=== PATIENT | female | born 1940 | race Caucasian/White ===

== ENCOUNTER → 2016-08-17 | Outpatient (CLI) | payer MEDICARE ==
[2016-08-17 18:42] LABS: MEAN CORPUSCULAR HEMOGLOBIN 33.4 pg (27.0-33.0); MEAN CORPUSCULAR VOLUME 98.2 fl (80.0-96.0); RED CELL DISTRIBUTION WIDTH 13.4 % (11.5-14.5); WHITE BLOOD COUNT 7.1 K/mm3 (4.0-10.0)
[2016-08-17 19:08] LABS: ALBUMIN 3.7 GM/DL (3.2-5.2); ALBUMIN/GLOBULIN RATIO 1.37 (1.00-1.93); BILIRUBIN,TOTAL 0.7 MG/DL (0.2-1.0); CALCIUM LEVEL 8.4 MG/DL (8.8-10.2); CREATININE FOR GFR 1.13 MG/DL (0.55-1.02); GLOMERULAR FILTRATION RATE 50.2 (>39); POTASSIUM SERUM 4.5 MEQ/L (3.5-5.1); TOTAL PROTEIN 6.4 GM/DL (6.4-8.2)
== END ==
LOC: M WUC 11:41
PROVIDERS: ATTEND Nurse Practitioner Family
DX: E78.00 Pure hypercholesterolemia, unspecified (principal); I10 Essential (primary) hypertension; E11.9 Type 2 diabetes mellitus without complications; E55.9 Vitamin D deficiency, unspecified; K21.9 Gastro-esophageal reflux disease without esophagitis

== ENCOUNTER → 2016-11-18 | Outpatient (CLI) | payer MEDICARE ==
[2016-11-18 17:03] LABS: ALBUMIN 3.5 GM/DL (3.2-5.2); ALBUMIN/GLOBULIN RATIO 1.09 (1.00-1.93); BILIRUBIN,TOTAL 0.6 MG/DL (0.2-1.0); CALCIUM LEVEL 8.6 MG/DL (8.8-10.2); CREATININE FOR GFR 1.04 MG/DL (0.55-1.02); GLOMERULAR FILTRATION RATE 55.1 (>39); POTASSIUM SERUM 4.4 MEQ/L (3.5-5.1); TOTAL PROTEIN 6.7 GM/DL (6.4-8.2)
[2016-11-18 19:08] LABS: MEAN CORPUSCULAR HEMOGLOBIN 32.4 pg (27.0-33.0); MEAN CORPUSCULAR HGB CONC 33.3 g/dl (32.0-36.5); MEAN CORPUSCULAR VOLUME 97.4 fl (80.0-96.0); RED CELL DISTRIBUTION WIDTH 13.4 % (11.5-14.5); WHITE BLOOD COUNT 6.6 K/mm3 (4.0-10.0)
== END ==
LOC: M WUC 13:36
PROVIDERS: ATTEND Nurse Practitioner Family
DX: E55.9 Vitamin D deficiency, unspecified (principal); I10 Essential (primary) hypertension

== ENCOUNTER → 2016-12-07 | Outpatient (REF) | payer MEDICARE | LOC: M LAB REF 08:59 | PROVIDERS: ATTEND Physician Assistant | DX: N39.0 Urinary tract infection, site not specified (principal) ==

== ENCOUNTER → 2017-01-30 | Outpatient (REF) | payer MEDICARE | LOC: M LAB REF 18:44 | PROVIDERS: ATTEND Surgery | DX: L72.3 Sebaceous cyst (principal) ==

== ENCOUNTER → 2017-02-27 | Outpatient (CLI) | payer MEDICARE ==
[2017-02-27 16:49] LABS: MEAN CORPUSCULAR HEMOGLOBIN 32.1 pg (27.0-33.0); MEAN CORPUSCULAR HGB CONC 33.3 g/dl (32.0-36.5); MEAN CORPUSCULAR VOLUME 96.4 fl (80.0-96.0); RED CELL DISTRIBUTION WIDTH 13.7 % (11.5-14.5); WHITE BLOOD COUNT 7.2 K/mm3 (4.0-10.0)
[2017-02-27 17:36] LABS: ALBUMIN 3.6 GM/DL (3.2-5.2); ALBUMIN/GLOBULIN RATIO 1.13 (1.00-1.93); BILIRUBIN,TOTAL 0.7 MG/DL (0.2-1.0); CALCIUM LEVEL 8.7 MG/DL (8.8-10.2); CREATININE FOR GFR 1.05 MG/DL (0.55-1.02); GLOMERULAR FILTRATION RATE 54.5 (>39); POTASSIUM SERUM 4.3 MEQ/L (3.5-5.1); TOTAL PROTEIN 6.8 GM/DL (6.4-8.2)
== END ==
LOC: M WUC 12:43
PROVIDERS: ATTEND Nurse Practitioner Family
DX: E55.9 Vitamin D deficiency, unspecified (principal); I10 Essential (primary) hypertension; E78.5 Hyperlipidemia, unspecified; E11.9 Type 2 diabetes mellitus without complications

== ENCOUNTER → 2017-06-20 | Outpatient (CLI) | payer MEDICARE ==
[2017-06-20 19:02] LABS: HEMATOCRIT 44.1 % (36.0-47.0); HEMOGLOBIN 14.5 g/dl (12.0-16.0); MEAN CORPUSCULAR HEMOGLOBIN 31.7 pg (27.0-33.0); MEAN CORPUSCULAR HGB CONC 32.9 g/dl (32.0-36.5); MEAN CORPUSCULAR VOLUME 96.5 fl (80.0-96.0); PLATELET COUNT, AUTOMATED 274 10^3/uL (150-450); RED BLOOD COUNT 4.57 10^6/uL (4.00-5.40); RED CELL DISTRIBUTION WIDTH 13.9 % (11.5-14.5); WHITE BLOOD COUNT 8.8 10^3/uL (4.0-10.0)
[2017-06-20 19:32] LABS: ALBUMIN 3.8 GM/DL (3.2-5.2); ALBUMIN/GLOBULIN RATIO 1.19 (1.00-1.93); ALKALINE PHOSPHATASE 63 U/L (45-117); ALT/SGPT 20 U/L (12-78); ANION GAP 7 MEQ/L (8-16); AST/SGOT 14 U/L (7-37); BILIRUBIN,TOTAL 0.5 MG/DL (0.2-1.0); BLOOD UREA NITROGEN 16 MG/DL (7-18); CALCIUM LEVEL 8.6 MG/DL (8.8-10.2); CARBON DIOXIDE LEVEL 28 MEQ/L (21-32); CHLORIDE LEVEL 108 MEQ/L (98-107); CHOLESTEROL LEVEL 206 MG/DL (<200); CPK CREATINE PHOSPHOKINASE 58 U/L (26-192); CREATININE FOR GFR 1.11 MG/DL (0.55-1.02); GLOMERULAR FILTRATION RATE 51.2 (>39); GLUCOSE, FASTING 119 MG/DL (83-110); HDL CHOLESTEROL 76 MG/DL (>40); LDL CHOLESTEROL 100.8 MG/DL (<100); NON-HDL-C 130 MG/DL; POTASSIUM SERUM 4.1 MEQ/L (3.5-5.1); SODIUM LEVEL 143 MEQ/L (136-145); TRIGLYCERIDES LEVEL 146 MG/DL (<150)
[2017-06-20 19:48] LABS: ESTIMATED AVERAGE GLUCOSE 111 MG/DL (60-110); HEMOGLOBIN A1c 5.5 %
[2017-06-20 19:50] LABS: CREATININE, URINE 71.2 MG/DL; MALB URINE SIEMENS < 5.0 MG/L
[2017-06-20 19:54] LABS: TOTAL 25(OH) VITAMIN D 49.1 NG/ML (30.0-100.0)
== END ==
LOC: M WUC 11:06
DX: I10 Essential (primary) hypertension (principal); E55.9 Vitamin D deficiency, unspecified; R73.01 Impaired fasting glucose
CPT/HCPCS: 82550

== ENCOUNTER → 2017-06-23 | Outpatient (CLI) | payer MEDICARE ==
[2017-06-23 16:44] LABS: ERYTHROCYTE SEDIMENTATION RATE 11 mm/hr (0-30)
== END ==
LOC: M WUC 15:18
DX: G50.1 Atypical facial pain (principal)
CPT/HCPCS: 36415

== ENCOUNTER 2017-09-04 06:32 | Day surgery (SDC) | payer MEDICARE ==
[~2017-09-04 06:32] MED LIST: SLF 3 ML SYR IV
[2017-09-04] MEDS ORDERED: SLF 3 ML SYR IV (06:45)
[2017-09-04] MEDS ORDERED: CYCLOPENTOLATE 2% OPHTH SOLN 2ML BTL OS (07:00)
[2017-09-04] MEDS: OFLOXACIN 0.3 % (OCUFLOX) OPTH SOL 5ML OS (07:00)
[2017-09-04] MEDS ORDERED: PHENYLEPHRINE HCL 10 % OPHTH. SOL 5ML OS (07:00)
[2017-09-04] MEDS ORDERED: LIDOCAINE 3.5 % 1ML OPHTH TOPICAL GEL OU (07:00)
[2017-09-04] MEDS: PROPARACAINE 0.5% OPHTH SOL 15ML OS (07:00)
[2017-09-04] MEDS: PHENYLEPHRINE 2.5% OPHTH SOL 2ML OS (07:05)
[2017-09-04 07:08] LABS: BEDSIDE GLUCOSE 107 MG/DL (83-110)
[2017-09-04] MEDS: TROPICAMIDE 1% OPHTH SOLN 2ML OS (07:10)
[2017-09-04] MEDS ORDERED: fentaNYL 100 MCG/2 ML INJECTION (J3010) As Ordered (07:34)
[2017-09-04] MEDS ORDERED: MIDAZOLAM INJ 2 MG/2 ML VIAL (J2250) As Ordered (07:34)
[2017-09-04] MEDS: POVIDONE-IODINE 5% OPHTH PREP SOL 30ML As Ordered (07:58)
[2017-09-04] MEDS: LIDOCAINE 0.75%/EPINEPHRINE 0.025% IN BSS 1ML SYR INTRACAMERAL (OR ONLY) As Ordered (08:05)
[2017-09-04] MEDS: CEFUROXIME 1MG/0.1ML INTRACAMERAL INJ As Ordered (08:05)
[2017-09-04] MEDS: BALANCED SALT IRRIGATION SOLUTION 500ML BAG (FOR OR EYE MACHINE) As Ordered (08:05)
[2017-09-04] MEDS: DUOVISC (0.50ML VISCOAT/0.55ML PROVISC) OPHTH KIT As Ordered (08:05)
== END 2017-09-04 09:10 | disposition home or self-care (01) ==
LOC: M SDC 06:32
DX: H25.12 Age-related nuclear cataract, left eye (principal); H40.9 Unspecified glaucoma; I10 Essential (primary) hypertension; E11.9 Type 2 diabetes mellitus without complications; E78.5 Hyperlipidemia, unspecified; I49.9 Cardiac arrhythmia, unspecified; G43.909 Migraine, unspecified, not intractable, without status migrainosus; R06.83 Snoring; J30.9 Allergic rhinitis, unspecified; K21.9 Gastro-esophageal reflux disease without esophagitis; Z88.2 Allergy status to sulfonamides; Z79.899 Other long term (current) drug therapy; Z87.891 Personal history of nicotine dependence; Z78.0 Asymptomatic menopausal state
CPT/HCPCS: 66984

== ENCOUNTER 2017-09-18 05:45 | Day surgery (SDC) | payer MEDICARE ==
[2017-09-18] MEDS ORDERED: SLF 3 ML SYR IV ×2 (06:00)
[2017-09-18] MEDS: PROPARACAINE 0.5% OPHTH SOL 15ML OD (06:37)
[2017-09-18] MEDS: PHENYLEPHRINE 2.5% OPHTH SOL 2ML OD (06:37)
[2017-09-18] MEDS: OFLOXACIN 0.3 % (OCUFLOX) OPTH SOL 5ML OD (06:37)
[2017-09-18] MEDS: TROPICAMIDE 1% OPHTH SOLN 2ML OD (06:37)
[2017-09-18] MEDS ORDERED: MIDAZOLAM INJ 2 MG/2 ML VIAL (J2250) As Ordered (07:04)
[2017-09-18] MEDS ORDERED: fentaNYL 100 MCG/2 ML INJECTION (J3010) As Ordered (07:13)
[2017-09-18] MEDS: BALANCED SALT IRRIGATION SOLUTION 500ML BAG (FOR OR EYE MACHINE) As Ordered (07:36)
[2017-09-18] MEDS: DUOVISC (0.50ML VISCOAT/0.55ML PROVISC) OPHTH KIT As Ordered ×2 (07:36)
[2017-09-18] MEDS: CEFUROXIME 1MG/0.1ML INTRACAMERAL INJ As Ordered (07:36)
[2017-09-18] MEDS: LIDOCAINE 0.75%/EPINEPHRINE 0.025% IN BSS 1ML SYR INTRACAMERAL (OR ONLY) As Ordered (07:36)
[2017-09-18] MEDS: POVIDONE-IODINE 5% OPHTH PREP SOL 30ML As Ordered (07:36)
== END 2017-09-18 08:44 | disposition home or self-care (01) ==
LOC: M SDC 05:45
DX: H25.11 Age-related nuclear cataract, right eye (principal); H40.10X0 Unspecified open-angle glaucoma, stage unspecified; I10 Essential (primary) hypertension; E11.9 Type 2 diabetes mellitus without complications; E78.5 Hyperlipidemia, unspecified; Z88.2 Allergy status to sulfonamides; Z79.899 Other long term (current) drug therapy
CPT/HCPCS: 66984

== ENCOUNTER → 2017-10-11 | Outpatient (CLI) | payer MEDICARE ==
[2017-10-11 17:49] LABS: ALBUMIN 3.7 GM/DL (3.2-5.2); ALBUMIN/GLOBULIN RATIO 1.16 (1.00-1.93); ALKALINE PHOSPHATASE 66 U/L (45-117); ALT/SGPT 33 U/L (12-78); ANION GAP 8 MEQ/L (8-16); AST/SGOT 23 U/L (7-37); BILIRUBIN,TOTAL 0.7 MG/DL (0.2-1.0); BLOOD UREA NITROGEN 11 MG/DL (7-18); CALCIUM LEVEL 8.4 MG/DL (8.8-10.2); CARBON DIOXIDE LEVEL 27 MEQ/L (21-32); CHLORIDE LEVEL 110 MEQ/L (98-107); CHOLESTEROL LEVEL 172 MG/DL (<200); CHOLESTEROL RISK RATIO 2.492 (<5); CPK CREATINE PHOSPHOKINASE 69 U/L (26-192); CREATININE FOR GFR 1.03 MG/DL (0.55-1.30); GLOMERULAR FILTRATION RATE 55.6 (>39); GLUCOSE, FASTING 103 MG/DL (70-100); HDL CHOLESTEROL 69 MG/DL (>40); LDL CHOLESTEROL 75.4 MG/DL (<100); NON-HDL-C 103 MG/DL; POTASSIUM SERUM 4.1 MEQ/L (3.5-5.1); SODIUM LEVEL 145 MEQ/L (136-145); TOTAL PROTEIN 6.9 GM/DL (6.4-8.2); TRIGLYCERIDES LEVEL 138 MG/DL (<150)
[2017-10-11 17:53] LABS: ESTIMATED AVERAGE GLUCOSE 120 MG/DL (60-110); HEMOGLOBIN A1c 5.8 %
[2017-10-11 18:10] LABS: HEMATOCRIT 42.3 % (36.0-47.0); HEMOGLOBIN 13.9 g/dl (12.0-15.5); MEAN CORPUSCULAR HEMOGLOBIN 31.5 pg (27.0-33.0); MEAN CORPUSCULAR HGB CONC 32.9 g/dl (32.0-36.5); MEAN CORPUSCULAR VOLUME 95.9 fl (80.0-96.0); PLATELET COUNT, AUTOMATED 213 10^3/uL (150-450); RED BLOOD COUNT 4.41 10^6/uL (4.00-5.40); WHITE BLOOD COUNT 5.7 10^3/uL (4.0-10.0)
[2017-10-11 18:22] LABS: MALB URINE SIEMENS 8.6 MG/L; MAU/CREAT RATIO 6.3 MCG/MG (0.0-30.0)
[2017-10-13 09:26] LABS: TOTAL 25(OH) VITAMIN D 59.2 NG/ML (30.0-100.0)
== END ==
LOC: M WUC 12:37
DX: I10 Essential (primary) hypertension (principal); E55.9 Vitamin D deficiency, unspecified; E11.9 Type 2 diabetes mellitus without complications; E78.00 Pure hypercholesterolemia, unspecified
CPT/HCPCS: 82550

== ENCOUNTER → 2018-01-31 | Outpatient (CLI) | payer MEDICARE ==
[2018-01-31 19:01] LABS: HEMATOCRIT 43.7 % (36.0-47.0); HEMOGLOBIN 14.4 g/dl (12.0-15.5); MEAN CORPUSCULAR VOLUME 97.1 fl (80.0-96.0); PLATELET COUNT, AUTOMATED 208 10^3/uL (150-450); RED CELL DISTRIBUTION WIDTH 13.6 % (11.5-14.5); WHITE BLOOD COUNT 8.3 10^3/uL (4.0-10.0)
[2018-01-31 19:08] LABS: ALBUMIN 3.4 GM/DL (3.2-5.2); ALBUMIN/GLOBULIN RATIO 0.97 (1.00-1.93); ALKALINE PHOSPHATASE 69 U/L (45-117); ALT/SGPT 22 U/L (12-78); ANION GAP 10 MEQ/L (8-16); AST/SGOT 14 U/L (7-37); BILIRUBIN,TOTAL 0.6 MG/DL (0.2-1.0); BLOOD UREA NITROGEN 13 MG/DL (7-18); CALCIUM LEVEL 8.5 MG/DL (8.8-10.2); CARBON DIOXIDE LEVEL 27 MEQ/L (21-32); CHLORIDE LEVEL 107 MEQ/L (98-107); CHOLESTEROL LEVEL 174 MG/DL (<200); CHOLESTEROL RISK RATIO 2.383 (<5); CPK CREATINE PHOSPHOKINASE 50 U/L (26-192); CREATININE FOR GFR 1.02 MG/DL (0.55-1.30); GLOMERULAR FILTRATION RATE 56.2 (>39); GLUCOSE, FASTING 104 MG/DL (70-100); HDL CHOLESTEROL 73 MG/DL (>40); LDL CHOLESTEROL 75.6 MG/DL (<100); NON-HDL-C 101 MG/DL; POTASSIUM SERUM 4.2 MEQ/L (3.5-5.1); SODIUM LEVEL 144 MEQ/L (136-145); TOTAL PROTEIN 6.9 GM/DL (6.4-8.2); TRIGLYCERIDES LEVEL 127 MG/DL (<150)
[2018-01-31 19:13] LABS: ESTIMATED AVERAGE GLUCOSE 126 MG/DL (60-110)
[2018-01-31 19:31] LABS: MALB URINE SIEMENS 10.1 MG/L; MAU/CREAT RATIO 4.9 MCG/MG (0.0-30.0)
== END ==
LOC: M WUC 12:04
DX: I10 Essential (primary) hypertension (principal); E11.9 Type 2 diabetes mellitus without complications; E78.00 Pure hypercholesterolemia, unspecified
CPT/HCPCS: 82550

== ENCOUNTER → 2018-05-15 | Outpatient (CLI) | payer MEDICARE ==
[2018-05-15 15:08] LABS: HEMATOCRIT 41.2 % (36.0-47.0); HEMOGLOBIN 13.4 g/dl (12.0-15.5); MEAN CORPUSCULAR HEMOGLOBIN 31.2 pg (27.0-33.0); MEAN CORPUSCULAR HGB CONC 32.5 g/dl (32.0-36.5); MEAN CORPUSCULAR VOLUME 95.8 fl (80.0-96.0); PLATELET COUNT, AUTOMATED 163 10^3/uL (150-450); RED CELL DISTRIBUTION WIDTH 13.8 % (11.5-14.5); WHITE BLOOD COUNT 8.1 10^3/uL (4.0-10.0)
[2018-05-15 15:16] LABS: ALBUMIN 3.2 GM/DL (3.2-5.2); ALBUMIN/GLOBULIN RATIO 0.97 (1.00-1.93); ALKALINE PHOSPHATASE 69 U/L (45-117); ALT/SGPT 24 U/L (12-78); ANION GAP 9 MEQ/L (8-16); AST/SGOT 19 U/L (7-37); BILIRUBIN,TOTAL 0.5 MG/DL (0.2-1.0); BLOOD UREA NITROGEN 15 MG/DL (7-18); CALCIUM LEVEL 8.4 MG/DL (8.8-10.2); CARBON DIOXIDE LEVEL 26 MEQ/L (21-32); CHLORIDE LEVEL 108 MEQ/L (98-107); CHOLESTEROL LEVEL 199 MG/DL (<200); CHOLESTEROL RISK RATIO 2.926 (<5); CPK CREATINE PHOSPHOKINASE 58 U/L (26-192); CREATININE FOR GFR 1.05 MG/DL (0.55-1.30); GLOMERULAR FILTRATION RATE 54.4 (>39); GLUCOSE, FASTING 95 MG/DL (70-100); HDL CHOLESTEROL 68 MG/DL (>40); LDL CHOLESTEROL 100 MG/DL (<100); NON-HDL-C 131 MG/DL; POTASSIUM SERUM 4.5 MEQ/L (3.5-5.1); SODIUM LEVEL 143 MEQ/L (136-145); TOTAL PROTEIN 6.5 GM/DL (6.4-8.2); TRIGLYCERIDES LEVEL 154 MG/DL (<150)
[2018-05-15 15:22] LABS: TOTAL 25(OH) VITAMIN D 43.3 NG/ML (30.0-100.0)
[2018-05-15 15:40] LABS: CREATININE, URINE 54.6 MG/DL; MALB URINE SIEMENS < 5.0 MG/L; MAU/CREAT RATIO 9.1 MCG/MG (0.0-30.0)
[2018-05-15 15:52] LABS: ESTIMATED AVERAGE GLUCOSE 123 MG/DL (60-110); HEMOGLOBIN A1c 5.9 %
== END ==
LOC: M WUC 12:49
DX: E83.51 Hypocalcemia (principal); E78.00 Pure hypercholesterolemia, unspecified; I10 Essential (primary) hypertension; E11.9 Type 2 diabetes mellitus without complications
CPT/HCPCS: 82550

== ENCOUNTER → 2018-05-18 | Outpatient (CLI) | payer MEDICARE | LOC: M WUC 18:08 | DX: R30.0 Dysuria (principal); R35.0 Frequency of micturition | CPT/HCPCS: 36415 ==

== ENCOUNTER → 2018-09-03 | Outpatient (CLI) | payer MEDICARE ==
[~2018-09-03] MED LIST changes: +BYST5TAB2 PO; +DRIS50003 PO; +JANU100T PO; +ROSU5TAB4 PO; +SERT-155 PO; -SLF 3 ML SYR IV; +VALS1TAB47 PO
[2018-09-03 18:22] LABS: HEMATOCRIT 43.6 % (36.0-47.0); HEMOGLOBIN 13.8 g/dl (12.0-15.5); MEAN CORPUSCULAR HEMOGLOBIN 31.3 pg (27.0-33.0); MEAN CORPUSCULAR HGB CONC 31.7 g/dl (32.0-36.5); MEAN CORPUSCULAR VOLUME 98.9 fl (80.0-96.0); PLATELET COUNT, AUTOMATED 252 10^3/uL (150-450); RED BLOOD COUNT 4.41 10^6/uL (4.00-5.40); WHITE BLOOD COUNT 6.6 10^3/uL (4.0-10.0)
[2018-09-03 18:28] LABS: ALBUMIN 3.8 GM/DL (3.2-5.2); BILIRUBIN,TOTAL 0.8 MG/DL (0.2-1.0); CALCIUM LEVEL 8.9 MG/DL (8.8-10.2); CHOLESTEROL RISK RATIO 2.434 (<5); CREATININE FOR GFR 1.03 MG/DL (0.55-1.30); GLOMERULAR FILTRATION RATE 55.6 (>39); POTASSIUM SERUM 4.3 MEQ/L (3.5-5.1); TOTAL PROTEIN 6.8 GM/DL (6.4-8.2)
[2018-09-03 18:41] LABS: HEMOGLOBIN A1c 5.7 %
[2018-09-03 19:28] LABS: CREATININE, URINE 82.2 MG/DL; MALB URINE SIEMENS < 5.0 MG/L
== END ==
LOC: M WUC 11:56
PROVIDERS: ATTEND Nurse Practitioner Family
DX: I10 Essential (primary) hypertension (principal); E55.9 Vitamin D deficiency, unspecified; E78.5 Hyperlipidemia, unspecified; E11.9 Type 2 diabetes mellitus without complications

== ENCOUNTER → 2019-03-09 | Outpatient (REF) | payer MEDICARE ==
[~2019-03-09] MED LIST changes: -ROSU5TAB4 PO; +ROSU5TAB5 PO; -VALS1TAB47 PO; +VALS1TAB67 PO
[2019-03-09 17:46] LABS: CREATININE, URINE 54.3 MG/DL; MALB URINE SIEMENS < 5.0 MG/L; MAU/CREAT RATIO 9.2 MCG/MG (0.0-30.0)
== END ==
LOC: M LAB REF 16:35
PROVIDERS: ATTEND Internal Medicine Cardiovascular Disease
DX: I10 Essential (primary) hypertension (principal); E78.2 Mixed hyperlipidemia; E11.9 Type 2 diabetes mellitus without complications

== ENCOUNTER → 2019-03-10 | Outpatient (CLI) | payer MEDICARE ==
[2019-03-10 17:14] LABS: ALBUMIN 3.6 GM/DL (3.2-5.2); BILIRUBIN,TOTAL 0.8 MG/DL (0.2-1.0); CALCIUM LEVEL 9.1 MG/DL (8.8-10.2); CHOLESTEROL RISK RATIO 2.439 (<5); CREATININE FOR GFR 1.16 MG/DL (0.55-1.30); FREE T4 1.04 NG/DL (0.76-1.46); GLOMERULAR FILTRATION RATE 48.4 (>39); POTASSIUM SERUM 4.6 MEQ/L (3.5-5.1); THYROID STIMULATING HORMONE 1.61 uIU/ML (0.358-3.740); TOTAL PROTEIN 6.8 GM/DL (6.4-8.2)
[2019-03-10 17:22] LABS: BASO # 0.1 10^3/uL (0.0-0.2); BASO % 1.6 % (0.0-1.0); EOS # 0.3 10^3/uL (0.0-0.5); EOS % 3.5 % (0.0-3.0); HEMATOCRIT 42.1 % (36.0-47.0); HEMOGLOBIN 14.1 g/dl (12.0-15.5); LYMPH # 2.3 10^3/uL (1.5-5.0); LYMPH % 31.5 % (24.0-44.0); MEAN CORPUSCULAR HEMOGLOBIN 32.1 pg (27.0-33.0); MEAN CORPUSCULAR HGB CONC 33.5 g/dl (32.0-36.5); MEAN CORPUSCULAR VOLUME 95.9 fl (80.0-96.0); MONO # 0.7 10^3/uL (0.0-0.8); NEUTROPHILS % 54.3 % (36.0-66.0); PLATELET COUNT, AUTOMATED 237 10^3/uL (150-450); RED BLOOD COUNT 4.39 10^6/uL (4.00-5.40); WHITE BLOOD COUNT 7.4 10^3/uL (4.0-10.0)
[2019-03-10 17:52] LABS: HEMOGLOBIN A1c 5.3 %
== END ==
LOC: M WUC 13:55
PROVIDERS: ATTEND Physician Assistant Medical
DX: E11.9 Type 2 diabetes mellitus without complications (principal); I10 Essential (primary) hypertension; E78.2 Mixed hyperlipidemia; R53.83 Other fatigue

== ENCOUNTER 2019-08-24 23:45 | Emergency (ER) | payer MEDICARE ==
[~2019-08-24] VITALS: Ht 157.5 cm; Wt 74.1 kg
[~2019-08-24 23:45] MED LIST changes: -SERT-155 PO; +SERT50TA29 PO
[2019-08-25] MEDS ORDERED: LOSA50TA88 PO (00:01)
[2019-08-25 00:21] LABS: BASO # 0.1 10^3/uL (0.0-0.2); BASO % 1.3 % (0.0-1.0); EOS # 0.3 10^3/uL (0.0-0.5); EOS % 2.9 % (0.0-3.0); HEMATOCRIT 42.1 % (36.0-47.0); LYMPH % 31.6 % (24.0-44.0); MEAN CORPUSCULAR HGB CONC 33.3 g/dl (32.0-36.5); MEAN CORPUSCULAR VOLUME 96.1 fl (80.0-96.0); MONO # 1.1 10^3/uL (0.0-0.8); MONO % 11.2 % (0.0-5.0); NEUTROPHILS # 5.1 10^3/uL (1.5-8.5); NEUTROPHILS % 52.8 % (36.0-66.0); PLATELET COUNT, AUTOMATED 299 10^3/uL (150-450); RED BLOOD COUNT 4.38 10^6/uL (4.00-5.40); WHITE BLOOD COUNT 9.6 10^3/uL (4.0-10.0)
[2019-08-25 00:49] LABS: BLOOD UREA NITROGEN 9 MG/DL (7-18); CALCIUM LEVEL 8.9 MG/DL (8.8-10.2); CARBON DIOXIDE LEVEL 27 MEQ/L (21-32); CHLORIDE LEVEL 108 MEQ/L (98-107); CK-MB VALUE MASS < 1.0 NG/ML (<3.6); CPK CREATINE PHOSPHOKINASE 69 U/L (26-192); CREATININE FOR GFR 1.12 MG/DL (0.55-1.30); GLOMERULAR FILTRATION RATE 50.4 (>39); GLUCOSE, FASTING 104 MG/DL (70-100); MB/CK RELATIVE INDEX 1.45 (< OR =4); POTASSIUM SERUM 3.7 MEQ/L (3.5-5.1); SODIUM LEVEL 143 MEQ/L (136-145); TROPONIN I < 0.02 NG/ML (< 0.10)
[2019-08-25] MEDS ORDERED: GI COCKTAIL 50ML BTL(HYOSCYAMINE/MAALOX/LIDOCAINE VISCOUS)(1:3:1) PO ONE (02:15)
[2019-08-25 02:30] VITALS: BP 153/76
--- NOTE | 2019-08-25 07:53 | REP ---
Portable chest, 12:08 a.m., single AP view with the patient upright: Comparison is the PA and lateral chest dated 09/16/2013. There is chronic mild cardiomegaly, unchanged. Lung larson are clear. The jocelyne, mediastinum, and skeletal structures are unremarkable. Impression: Chronic mild cardiomegaly. Otherwise, negative portable chest. Electronically Signed by Elio Salinas MD 08/25/2019 07:45 A
--- NOTE | 2019-08-25 20:53 | ECGEPIP ---
[facility] - ED Test Date: 2019-08-25 Pat Name: DONNIE ROLLINS Department: Room: - Gender: Female Hospital Clinic Assistant: : 1940 Requested By: MELINDA CHAPA Order Number: [id number] Reading MD: Cara Warren Measurements Intervals [place] Rate: 67 P: 60 MO: 148 QRS: 15 QRSD: 95 T: 54 QT: 388 QTc: 411 Interpretive Statements SINUS RHYTHM NONSPECIFIC ST & T-WAVE ABNORMALITY NO PRIOR Electronically Signed on 08-25-2019 20:53:11 EDT by Cara Warren
== END 2019-08-25 02:43 | disposition home or self-care (01) ==
LOC: M ED 23:45
DX: K21.9 Gastro-esophageal reflux disease without esophagitis (principal); Z86.79 Personal history of other diseases of the circulatory system; I51.7 Cardiomegaly; E11.9 Type 2 diabetes mellitus without complications; Z88.2 Allergy status to sulfonamides; Z79.899 Other long term (current) drug therapy

== ENCOUNTER → 2020-01-04 | Outpatient (CLI) | payer MEDICARE ==
[~2020-01-04] MED LIST changes: +LOSA50TA88 PO
[2020-01-04 17:02] LABS: BASO # 0.1 10^3/uL (0.0-0.2); BASO % 0.9 % (0.0-1.0); EOS # 0.2 10^3/uL (0.0-0.5); EOS % 2.4 % (0.0-3.0); HEMATOCRIT 41.3 % (36.0-47.0); HEMOGLOBIN 13.5 g/dl (12.0-15.5); LYMPH # 2.1 10^3/uL (1.5-5.0); LYMPH % 28.8 % (24.0-44.0); MEAN CORPUSCULAR HEMOGLOBIN 31.8 pg (27.0-33.0); MEAN CORPUSCULAR HGB CONC 32.7 g/dl (32.0-36.5); MEAN CORPUSCULAR VOLUME 97.4 fl (80.0-96.0); MONO # 0.7 10^3/uL (0.0-0.8); MONO % 9.1 % (0.0-5.0); NEUTROPHILS # 4.3 10^3/uL (1.5-8.5); NEUTROPHILS % 58.7 % (36.0-66.0); PLATELET COUNT, AUTOMATED 224 10^3/uL (150-450); RED BLOOD COUNT 4.24 10^6/uL (4.00-5.40); WHITE BLOOD COUNT 7.4 10^3/uL (4.0-10.0)
[2020-01-04 17:08] LABS: ALBUMIN 3.5 GM/DL (3.2-5.2); BILIRUBIN,TOTAL 0.7 MG/DL (0.2-1.0); CALCIUM LEVEL 8.9 MG/DL (8.8-10.2); CHOLESTEROL RISK RATIO 3.057 (<5); CREATININE FOR GFR 1.16 MG/DL (0.55-1.30); FREE T4 1.02 NG/DL (0.76-1.46); GLOMERULAR FILTRATION RATE 48.2 (>39); POTASSIUM SERUM 4.1 MEQ/L (3.5-5.1); THYROID STIMULATING HORMONE 2.04 uIU/ML (0.358-3.740); TOTAL PROTEIN 6.4 GM/DL (6.4-8.2)
[2020-01-04 17:20] LABS: HEMOGLOBIN A1c 5.6 %
== END ==
LOC: M WUC 14:43
PROVIDERS: ATTEND Physician Assistant Medical
DX: R53.83 Other fatigue (principal); I10 Essential (primary) hypertension; E78.2 Mixed hyperlipidemia; E11.9 Type 2 diabetes mellitus without complications

== ENCOUNTER → 2020-04-14 | Outpatient (CLI) | payer MEDICARE ==
[2020-04-14 16:38] LABS: BASO # 0.1 10^3/uL (0.0-0.2); BASO % 1.5 % (0.0-1.0); EOS # 0.2 10^3/uL (0.0-0.5); EOS % 3.4 % (0.0-3.0); HEMATOCRIT 41.6 % (36.0-47.0); HEMOGLOBIN 13.2 g/dl (12.0-15.5); LYMPH # 2.1 10^3/uL (1.5-5.0); LYMPH % 30.9 % (24.0-44.0); MEAN CORPUSCULAR HEMOGLOBIN 31.1 pg (27.0-33.0); MEAN CORPUSCULAR HGB CONC 31.7 g/dl (32.0-36.5); MEAN CORPUSCULAR VOLUME 98.1 fl (80.0-96.0); MONO # 0.7 10^3/uL (0.0-0.8); MONO % 9.9 % (0.0-5.0); NEUTROPHILS # 3.6 10^3/uL (1.5-8.5); NEUTROPHILS % 53.9 % (36.0-66.0); PLATELET COUNT, AUTOMATED 237 10^3/uL (150-450); RED BLOOD COUNT 4.24 10^6/uL (4.00-5.40); WHITE BLOOD COUNT 6.7 10^3/uL (4.0-10.0)
[2020-04-14 16:58] LABS: HEMOGLOBIN A1c 5.5 %
[2020-04-14 17:10] LABS: ALBUMIN 3.4 GM/DL (3.2-5.2); ALT/SGPT 17 U/L (12-78); BILIRUBIN,TOTAL 0.8 MG/DL (0.2-1.0); BLOOD UREA NITROGEN 14 MG/DL (7-18); CALCIUM LEVEL 8.8 MG/DL (8.8-10.2); CARBON DIOXIDE LEVEL 27 MEQ/L (21-32); CHLORIDE LEVEL 107 MEQ/L (98-107); CHOLESTEROL LEVEL 180 MG/DL (<200); CREATININE FOR GFR 1.14 MG/DL (0.55-1.30); FREE T4 1.07 NG/DL (0.76-1.46); GLOMERULAR FILTRATION RATE 49.2 (>39); GLUCOSE, FASTING 103 MG/DL (70-100); HDL CHOLESTEROL 75 MG/DL (>40); HEPATITIS B SURFACE ANTIBODY NEGATIVE (POSITIVE); LDL CHOLESTEROL 85 MG/DL (<100); NON-HDL-C 105 MG/DL; POTASSIUM SERUM 4.2 MEQ/L (3.5-5.1); SODIUM LEVEL 141 MEQ/L (136-145); TOTAL PROTEIN 6.7 GM/DL (6.4-8.2); TRIGLYCERIDES LEVEL 98 MG/DL (<150)
[2020-04-14 17:20] LABS: HEPATITIS B SURFACE ANTIGEN NEGATIVE (NEGATIVE)
[2020-04-14 17:48] LABS: HEPATITIS A ANTIBODY IGM NEGATIVE (NEGATIVE)
== END ==
LOC: M WUC 12:24
PROVIDERS: ATTEND Physician Assistant Medical
DX: R53.83 Other fatigue (principal); I10 Essential (primary) hypertension; E78.2 Mixed hyperlipidemia; E11.9 Type 2 diabetes mellitus without complications; Z11.59 Encounter for screening for other viral diseases

== ENCOUNTER 2020-06-05 16:11 | Emergency (ER) | payer MEDICARE ==
[~2020-06-05] VITALS: Ht 157.5 cm; Wt 70.9 kg
[2020-06-05] MEDS ORDERED: VITA50005 (16:25)
[2020-06-05] MEDS ORDERED: OMEP-218 (16:25)
[2020-06-05] MEDS ORDERED: FLUTISP (16:25)
[2020-06-05 17:16] LABS: BASO # 0.2 10^3/uL (0.0-0.2); BASO % 1.6 % (0.0-1.0); EOS # 0.4 10^3/uL (0.0-0.5); EOS % 3.5 % (0.0-3.0); HEMATOCRIT 42.3 % (36.0-47.0); HEMOGLOBIN 13.6 g/dl (12.0-15.5); LYMPH # 4.3 10^3/uL (1.5-5.0); LYMPH % 43.2 % (24.0-44.0); MEAN CORPUSCULAR HEMOGLOBIN 30.8 pg (27.0-33.0); MEAN CORPUSCULAR HGB CONC 32.2 g/dl (32.0-36.5); MEAN CORPUSCULAR VOLUME 95.9 fl (80.0-96.0); MONO # 0.7 10^3/uL (0.0-0.8); MONO % 6.9 % (0.0-5.0); NEUTROPHILS # 4.5 10^3/uL (1.5-8.5); NEUTROPHILS % 44.6 % (36.0-66.0); PLATELET COUNT, AUTOMATED 268 10^3/uL (150-450); RED BLOOD COUNT 4.41 10^6/uL (4.00-5.40)
[2020-06-05 17:30] LABS: CREATININE FOR GFR 1.12 MG/DL (0.55-1.30); GLOMERULAR FILTRATION RATE 50.2 (>39); POTASSIUM SERUM 4.3 MEQ/L (3.5-5.1)
[2020-06-05 17:36] LABS: INR 0.86; PROTHROMBIN TIME 11.9 SECONDS (12.5-14.3)
[2020-06-05 17:54] LABS: ERYTHROCYTE SEDIMENTATION RATE 22 mm/hr (0-30)
--- NOTE | 2020-06-05 18:24 | REPVR ---
PROCEDURE INFORMATION: Exam: US Duplex Left Lower Extremity Veins, Limited Exam date and time: 06/05/2020 6:13 PM Age: 79 years old Clinical indication: Swelling (edema) of limb; Lower extremity, left; Additional info: R/O dvt TECHNIQUE: Imaging protocol: Real-time Duplex ultrasound of the Left Lower Extremity with 2-D slaughter scale, color Doppler flow and spectral waveform analysis with image documentation. Limited exam focused on the left lower extremity veins. COMPARISON: No relevant prior studies available. FINDINGS: Left deep veins: Unremarkable. The common femoral, femoral, proximal profunda femoral and popliteal veins are patent without thrombus. Normal Doppler waveforms. Normal compressibility and/or augmentation response. Left superficial veins: Unremarkable. Saphenofemoral junction is patent without thrombus. Soft tissues: Unremarkable. IMPRESSION: No evidence of deep vein thrombosis. Electronically signed by: Art Lubin On 06/05/2020 18:24:45 PM
[2020-06-05 19:10] VITALS: BP 157/69
--- NOTE | 2020-06-05 19:40 | REP ---
INDICATION: pain to left knee COMPARISON: None. TECHNIQUE: AP, lateral, bilateral oblique and sunrise views of the left knee. 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 No obvious acute fracture or dislocation. No definite effusion. IMPRESSION: Early advanced tricompartmental arthritic changes. <Electronically signed by Saúl Quan > 06/05/201935
== END 2020-06-05 19:13 | disposition home or self-care (01) ==
LOC: M ED 16:11
DX: M79.605 Pain in left leg (principal); I10 Essential (primary) hypertension; E78.5 Hyperlipidemia, unspecified; Z88.1 Allergy status to other antibiotic agents; Z88.2 Allergy status to sulfonamides

== ENCOUNTER → 2020-07-01 | Outpatient (REF) | payer MEDICARE ==
[~2020-07-01] MED LIST changes: +AZO-95TA3 PO; +FLUTISP; +MED REC COMMENT; +NITR-67 PO; +OMEP-218 PO; +VITA50005 PO
== END ==
LOC: M LAB REF 12:38
PROVIDERS: ATTEND Nurse Practitioner Family
DX: N39.0 Urinary tract infection, site not specified (principal)

== ENCOUNTER 2020-07-02 20:57 | Inpatient (IN) | payer MEDICARE ==
[~2020-07-02] VITALS: Ht 156.2 cm; Wt 71.9 kg
[~2020-07-02 20:57] MED LIST changes: -AZO-95TA3 PO; -MED REC COMMENT; -NITR-67 PO
--- OUTSIDE RECORDS SUMMARY | 2020-07-02 21:07 | CCD | Continuity of Care Document ---
Author Author Cecilia MEI Organization Unknown Address [address] [place] [address] [place] [address] Phone [phone] Care Team Providers Care Legal Transcriber Name Role Phone [facility] AUTM [phone] Problems Description No Information Available Social History Type Date Description Comments Sex Unknown Tobacco Use Start: Unknown End: Unknown Quit 14 Y RS AGo 1996 ETOH Use Occasionally consumes alcohol Tobacco Use Start: Unknown End: Unknown Patient is a former smoker Smoking Status Reviewed: 07/01/20 Patient is a former smoker Allergies, Adverse Reactions, Alerts Active Allergies Reaction Severity Comments Date Sulfa 07/04/2009 Medications Active Medications SIG Qnty Indications Ordering Provide r Date Nitrofurantoin Monohyd Macro 100mg Capsules take one capsule twice a day by mouth for 5 days 10caps N39.0 Bruce Maguire JR., M.D. 07/01/2020 Flonase Allergy Relief 50mcg/Act Suspension 1 spray in each nostril once a day as directed 9.900ml J 01.90 Bruce Maguire JR., M.D. 05/05/2019 Sertraline HCL Unknown Januvia 100mg Tablets Unknown Bystolic Unknown Rosuvastatin Calcium Unknown Losartan Potassium 50mg Tablets 1 by mouth every day Unknown Flonase Allergy Relief 50mcg/Act Suspension 2 sprays each nares daily/prn Unknown Azelastine HCL (Nasal) 0.15% Solut ion 2 sprays each nostril daily/prn Unknown Omeprazole Unknown Immunizations CPT Code Status Date Vaccine Lot # [id number] Given 05/16/2017 Influenza Vaccin e Not Specified Administered Age 4 And Older Q2037 Given 05/13/2016 Influenza Virus Split 3 Yrs And Above For Intramuscular Use Q2037 Given 04/13/2014 Influenza Virus Split 3 Yrs And Above For Intramuscular Use [id number] Q2037 Given 04/09/2013 Influenza Virus Split 3 Yrs And Above For Intramuscular Use [id number] Q2037 Given 04/08/2012 Influenza Virus Split 3 Yrs And Above For Intramuscular Use [id number] Q2037 Given 04/05/2011 Influenza Virus Split 3 Yrs And Above For Intramuscular Use [id number] Q2037 Given 03/16/2010 Influenza Virus Split 3 Yrs And Above For Intramuscular Use Vital Signs Date Vital Result Comment 07/01/2020 12:19pm BP Systolic 122 mmHg BP Diastolic 80 mmHg Heart Rate 68 /min Respiratory Rate 16 /min O2 % BldC Oximetry 96 % Body Temperature 97.8 F Weight 164.00 lb Height 62 inches 5'2" BMI (Body Mass Index) 30.0 kg/m2 Pain Level 5 06/05/2020 3:01pm BP Systolic 114 mmHg BP Diastolic 76 mmHg Heart Rate 63 /min Respiratory Rate 14 /min O2 % BldC Oximetry 96 % Body Temperature 97.9 F Weight 164.00 lb Height 62 inches 5'2" BMI (Body Mass Index) 30.0 kg/m2 Pain Level 6 Results Test Acquired Date Facility Test Result H/L Range Note Laboratory test finding 07/01/[address] [address] [phone] Urine Culture <pending> Procedures Description No Information Available Medical Devices Description No Information Available Encounters Type Date Location Provider Dx Diagnosis Office Visit 07/01/2020 10:25a Main Office Christine Mei NP N39. 0 Urinary tract infection, site not specified J30.9 Allergic rhinitis, unspecifi ed Office Visit 06/05/2020 3:25p Main Office ROSEY Milton R22 .42 Localized swelling, mass and lump, left lower limb Assessments Date Code Description Provider 07/01/2020 N39.0 Urinary tract infection, site no t specified Christine Mei NP 07/01/2020 J30.9 Allergic rhinitis, unspecified S cora Mei NP 06/05/2020 R22.42 Localized swelling, mass and lum p, left lower limb ROSEY Milton Plan of Treatment No Information Available Functional Status Description No Information Available Mental Status Description No Information Available Referrals Description No Information Available
--- OUTSIDE RECORDS SUMMARY | 2020-07-02 21:07 | CCD | Continuity of Care Document ---
Author Author Cecilia MEI Organization Unknown Address [address] [place] [address] [place] [address] Phone [phone] Care Team Providers Care Investigation Lieutenant Name Role Phone [facility] AUTM [phone] Problems Description No Information Available Social [...] 3 Yrs And Above For Intramuscular Use [id number] Q2037 Given 04/09/2013 Influenza Virus Split 3 Yrs And Above For Intramuscular Use [id number] Q2037 Given 04/08/2012 Influenza Virus Split 3 Yrs And Above For Intramuscular Use [id number] Q2037 Given 04/05/2011 Influenza Virus Split 3 Yrs And Above For Intramuscular Use [id number] Q2037 Given 03/16/2010 Influenza Virus Split 3 [...] H/L Range Note Laboratory test finding 07/01/[address] [address] [phone] Urine Culture <pending> Procedures Description No Information Available Medical Devices Description No Information Available Encounters Type Date Location Provider Dx Diagnosis Office Visit 07/01/2020 10:25a Main Office Christine Mei NP N39. 0 Urinary tract infection, site not specified Office Visit 06/05/2020 3:25p Main Office ROSEY Milton R22 .42 Localized swelling, mass and lump, left lower limb Assessments Date Code Description Provider 07/01/2020 N39.0 Urinary tract infection, site no t specified Christine Mei NP 06/05/2020 R22.42 Localized swelling, mass and lum p, left lower limb ROSEY Milton Plan of Treatment 07/01/2020 - Christine Mei NP* N39.0 Urinary tract infection, site not specified* New Medication:* Nitrofurantoin Monohyd Macro 100 mg - take one capsule twice a day by mouth for 5 days * Comments:* abx as directedwill send urine for culturepatient has AZO at home, advised to take PRNpractice good perineal hygienemonitor for worsening sxf/u PRN or with PCPpatient v/u & agrees to plan Functional Status Description No Information Available Mental Status Description No Information Available Referrals Description No Information Available
--- OUTSIDE RECORDS SUMMARY | 2020-07-02 21:08 | CCD ---
Author Author [facility] Organization [facility] Address Unknown Phone Unavailable Care Team Providers [employer] Name Role Phone Nael, L Renata PA Unavailable Unavailable Nael, L Renata PA Unavailable Unavailable Nael, L Renata PA Unavailable Unavailable Nael, L Renata PA Unavailable Unavailable Nael, L Renata PA Unavailable Unavailable Nael, L Renata PA Unavailable Unavailable Nael, L Renata PA Unavailable Unavailable Nael, L Renata PA Unavailable Unavailable Nael, L Renata PA Unavailable Unavailable Nael, L Renata PA Unavailable Unavailable Nael, L Renata PA Unavailable Unavailable Nael, L Renata PA Unavailable Unavailable Nael, L Renata PA Unavailable Unavailable Nael, L Renata PA Unavailable Unavailable Nael, L Renata PA Unavailable Unavailable Nael, L Renata PA Unavailable Unavailable Nael, L Renata PA Unavailable Unavailable Nael, L Renata PA Unavailable Unavailable Nael, L Renata PA Unavailable Unavailable Nael, L Renata PA Unavailable Unavailable Nael, L Renata PA Unavailable Unavailable Nael, L Renata PA Unavailable Unavailable Nael, L Renata PA Unavailable Unavailable Chambers, Christine CONTROL SYSTEMS SPECIALIST Unavailable Unavailable Chambers, Christine CONTROL SYSTEMS SPECIALIST Unavailable Unavailable Chambers, Christine CONTROL SYSTEMS SPECIALIST Unavailable Unavailable Chambers, Christine CONTROL SYSTEMS SPECIALIST Unavailable Unavailable Chambers, Christine CONTROL SYSTEMS SPECIALIST Unavailable Unavailable Chambers, Christine CONTROL SYSTEMS SPECIALIST Unavailable Unavailable Chambers, Christine CONTROL SYSTEMS SPECIALIST Unavailable Unavailable Chambers, Christine CONTROL SYSTEMS SPECIALIST Unavailable Unavailable Chambers, Christine CONTROL SYSTEMS SPECIALIST Unavailable Unavailable Chambers, Christine CONTROL SYSTEMS SPECIALIST Unavailable Unavailable Chambers, Christine CONTROL SYSTEMS SPECIALIST Unavailable Unavailable Elissa GALARZA DO Unavailable [phone] Elissa GALARZA LORI DO Unavailable [phone] Elissa GALARZA LORI DO Unavailable [phone] Elissa GALARZA LORI DO Unavailable [phone] Elissa GALARZA LORI DO Unavailable [phone] Elissa GALARZA LORI DO Unavailable [phone] Elissa GALARZA LORI DO Unavailable [phone] Elissa GALARZA LORI DO Unavailable [phone] Elissa GALARZA LORI DO Unavailable [phone] Elissa GALARZA LORI DO Unavailable [phone] Elissa GALARZA LORI DO Unavailable [phone] Elissa GALARZA LORI DO Unavailable [phone] Elissa GALARZA LORI DO Unavailable [phone] NÉSTOR, A. LORI DO Unavailable [phone] Elissa GALARZA LORI DO Unavailable [phone] Elissa GALARZA LORI DO Unavailable [phone] Elissa GALARZA LORI DO Unavailable [phone] Elissa GALARZA LORI DO Unavailable [phone] Elissa GALARZA LORI DO Unavailable [phone] Elissa GALARZA LORI DO Unavailable [phone] Elissa GALARZA LORI DO Unavailable [phone] LETTIERE, A JOSEMANUEL PA Unavailable Unavailable LETTIERE, A JOSEMANUEL PA Unavailable Unavailable LETTIERE, A JOSEMANUEL PA Unavailable Unavailable LETTIERE, A JOSEMANUEL PA Unavailable Unavailable LETTIERE, A JOSEMANUEL PA Unavailable Unavailable LETTIERE, A JOSEMANUEL PA Unavailable Unavailable LETTIERE, A JOSEMANUEL PA Unavailable Unavailable LETTIERE, A JOSEMANUEL PA Unavailable Unavailable LETTIERE, A JOSEMANUEL PA Unavailable Unavailable LETTIERE, A JOSEMANUEL PA Unavailable Unavailable LETTIERE, A JOSEMANUEL PA Unavailable Unavailable LETTIERE, A JOSEMANUEL PA Unavailable Unavailable LETTIERE, A JOSEMANUEL PA Unavailable Unavailable LETTIERE, A JOSEMANUEL PA Unavailable Unavailable LETTIERE, A JOSEMANUEL PA Unavailable Unavailable LETTIERE, A JOSEMANUEL PA Unavailable Unavailable LETTIERE, A JOSEMANUEL PA Unavailable Unavailable LETTIERE, A JOSEMANUEL PA Unavailable Unavailable LETTIERE, A JOSEMANUEL PA Unavailable Unavailable LETTIERE, A JOSEMANUEL PA Unavailable Unavailable LETTIERE, A JOSEMANUEL PA Unavailable Unavailable LETTIERE, A JOSEMANUEL PA Unavailable Unavailable LETTIERE, A JOSEMANUEL PA Unavailable Unavailable LETTIERE, A JOSEMANUEL PA Unavailable Unavailable LETTIERE, A JOSEMANUEL PA Unavailable Unavailable LETTIERE, A JOSEMANUEL PA Unavailable Unavailable LETTIERE, A JOSEMANUEL PA Unavailable Unavailable LETTIERE, A JOSEMANUEL PA Unavailable Unavailable LETTIERE, A JOSEMANUEL PA Unavailable Unavailable Re-disclosure Warning The records that you are about to access may contain information from federally-assisted alcohol or drug abuse programs. If such information is present, then the following federally mandated warning applies: This information has been disclosed to you from records protected by federal confidentiality rules (42 CFR part 2). The federal rules prohibit you from making any further disclosure of this information unless further disclosure is expressly permitted by the written consent of the person to whom it pertains or as otherwise permitted by 42 CFR part 2. A general authorization for the release of medical or other information is NOT sufficient for this purpose. The Federal rules restrict any use of the information to criminally investigate or prosecute any alcohol or drug abuse patient.The records that you are about to access may contain highly sensitive health information, the redisclosure of which is protected by Article 27-F of the [facility] Public Health law. If you continue you may have access to information: Regarding HIV / AIDS; Provided by facilities licensed or operated by the [facility] Office of Mental Health; or Provided by the [facility] Office for People With Developmental Disabilities. If such information is present, then the following [facility] mandated warning applies: This information has been disclosed to you from confidential records which are protected by state law. State law prohibits you from making any further disclosure of this information without the specific written consent of the person to whom it pertains, or as otherwise permitted by law. Any unauthorized further disclosure in violation of state law may result in a fine or intermediate sentence or both. A general authorization for the release of medical or other information is NOT sufficient authorization for further disc losure. Family History Family Member Name Family Member Gender Family Member Status Date o f Status Description Data Source(s) Unknown Unknown Problem [facility] ([facility]) Unknown Unknown Problem [facility] ([facility]) Unknown Male Problem MEDENT ([facility], [facility]) Encounters Encounter Providers Location Date Indications Data Source(s ) Outpatient Attender: Christine Chambers NP Judith Calvin Danay fuad 07/01/2020 09:25:00 AM EST MEDENT ([facility], [facility]) Outpatient Attender: JOSEMANUEL CURRIE Judith Calvin Bernadette domenico 06/05/2020 02:25:00 PM EST MEDENT ([facility], [facility]) Outpatient<td ID="encounterTypeDescripti onID0">6 Month Follow-Up</td><td>Lori Galarza DO</td><td>Virgilio Newsome MD [facility]</td><td>02/11/2020</td><td>2:52PM</td><td>3:49PM</td><td><content ID="encounterDiagnosisID0-0">Dry Eye Syndrome</content>, <content ID="encounterDiagnosisID0-1">Taking Medication For Diabetes Long-term Use of Oral Hypoglycemics</content>, <content ID="encounterDiagnosisID0-2">Glaucoma Open-angle Primary Both Eyes</content>, <content ID="encounterDiagnosisID0- 3">Diabetes Mellitus Type 2 Without Complication</content>, <content ID="encounterDiagnosisID0-4">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</content></td> Attender: LORI Betancur MD PLL [facility] 02/11/2020 02:52:00 PM EDT - 02/11/2020 03:49:00 PM ED T 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Glaucoma Open-angle Primary Both EyesGlaucoma Open-angle Primary Both EyesGlaucoma Open-angle Primary Both EyesDiabetes Mellitus Type 2 Without ComplicationTaking Medication For Diabetes Long-term Use of Oral HypoglycemicsDry Eye SyndromeDiabetes Mellitus Type 2 Without ComplicationTaking Medication For Diabetes Long-term Use of Oral HypoglycemicsDry Eye SyndromeDiabetes Mellitus Type 2 Without ComplicationTaking Medication For Diabetes Long-term Use of Oral HypoglycemicsDry Eye Syndrome JESUP (Virgilio Molina MD [facility]) Posterior Capsule Opacification Eccentri c Capsule Both Eyes Glaucoma Open-angle Primary Both Eyes Glaucoma Open-angle Primary Both Eyes Glaucoma Open-angle Primary Both Eyes Diabetes Mellitus Type 2 Without Complic ation Taking Medication For Diabetes Long-term Use of Oral Hypoglycemics Dry Eye Syndrome Diabetes Mellitus Type 2 Without Complic ation Taking Medication For Diabetes Long-term Use of Oral Hypoglycemics Dry Eye Syndrome Diabetes Mellitus Type 2 Without Complic ation Taking Medication For Diabetes Long-term Use of Oral Hypoglycemics Dry Eye Syndrome Outpatient Attender: Renata CURRIE Main Office 07/28/2019 02:00:0 0 PM EST SHANON ([facility]) Outpatient<td ID="encounterTypeDescripti onID1">7 Month Follow-Up</td><td>Lori Galarza DO</td><td>Virgilio Newsome MD [facility]</td><td>07/13/2019</td><td>3:13PM</td><td>3:59PM</td><td><content ID="encounterDiagnosisID1-0">Glaucoma Open-angle Primary Both Eyes</content>, <content ID="encounterDiagnosisID1-1">Diabetes Mellitus Type 2 Without Complication</content>, <content ID="encounterDiagnosisID1-2">Dry Eye Syndrome</content>, <content ID="encounterDiagnosisID1-3">Taking Medication For Diabetes Long-term Use of Oral Hypoglycemics</content>, <content ID="encounterDiagnosisID1-4">Pseudophakia</content>, <content ID="encounterDiagnosisID1-5">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</content></td> Attender: LORI Betancur MD PLL 07/13/2019 03:13:00 PM EST - 07/13/2019 03:59:00 PM ES T 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PseudophakiaPseudophakiaGlaucoma Open-angle Primary Both EyesGlaucoma Open-angle Primary Both EyesGlaucoma Open-angle Primary Both EyesTaking Medication For Diabetes Long-term Use of Oral HypoglycemicsDry Eye SyndromeDiabetes Mellitus Type 2 Without ComplicationTaking Medication For Diabetes Long-term Use of Oral HypoglycemicsDry Eye SyndromeDiabetes Mellitus Type 2 Without ComplicationTaking Medication For Diabetes Long-term Use of Oral HypoglycemicsDry Eye SyndromeDiabetes Mellitus Type 2 Without Complication DANIEL (Virgilio Molina MD [facility]) Posterior Capsule Opacification Eccentri c Capsule Both Eyes Posterior Capsule Opacification Eccentri c Capsule Both Eyes Pseudophakia Pseudophakia Glaucoma Open-angle Primary Both Eyes Glaucoma Open-angle Primary Both Eyes Glaucoma Open-angle Primary Both Eyes Taking Medication For Diabetes Long-term Use of Oral Hypoglycemics Dry Eye Syndrome Diabetes Mellitus Type 2 Without Complic ation Taking Medication For Diabetes Long-term Use of Oral Hypoglycemics Dry Eye Syndrome Diabetes Mellitus Type 2 Without Complic ation Taking Medication For Diabetes Long-term Use of Oral Hypoglycemics Dry Eye Syndrome Diabetes Mellitus Type 2 Without Complic ation Outpatient Attender: Christine merida 05/05/2019 02:50:00 PM EST MEDENT ([facility], [facility]) Immunizations Vaccine Date Status Description Data Source(s) INFLUENZA VACCINE QUADRIVALENT 2019- (65 YR UP)/MF59 C.1/PF 04/30/2020 12:00:00 AM EST completed [facility] PNEUMOCOCCAL 13-VALENT CONJUGATE VACCINE (DIPHTHERIA C RM)/PF 09/02/2019 12:00:00 AM EDT completed [facility] Medications Medication Brand Name Start Date Product Form Dose Route Admi nistrative Instructions Pharmacy Instructions Status Indications Reaction Description Data Source(s) 100 mg 07/01/2020 12:00:00 AM EST capsule 10 TAKE ONE CAPSULE BY MOUTH TWICE A DAY WITH FOOD FOR 5 DAYS TAKE ONE CAPSULE BY MOUTH TWICE A DAY WI TH FOOD FOR 5 DAYS SOLD: 07/01/2020 [facility] NITROFURANTOIN, MACROCRYSTALS 25 MG / Ni trofurantoin, Monohydrate 75 MG Oral Capsule Nitrofurantoin Monohyd Macro 07/01/2020 12:00:00 AM EST ORAL active [facility] ([facility], [facility]) 50 mg 06/20/2020 12:00:00 AM EST tablet 90 TAKE ONE TABLET BY MOUTH EVERY DAY TAKE ONE TABLET BY MOUTH EVERY DAY SOLD: 06/23/2020 [facility] 10 mg 05/25/2020 12:00:00 AM EST tablet 90 TAKE ONE TABLET BY MOUTH EVERY DAY TAKE ONE TABLET BY MOUTH EVERY DAY SOLD: 05/27/2020 [facility] 20 mg 05/01/2020 12:00:00 AM EST capsule,delayed release (DR/EC) 90 TAKE ONE CAPSULE BY MOUTH EVERY DAY TAKE ONE CAPSULE BY MOUTH EVERY DAY SOLD: 05/08/2020 [facility] 50 mcg/actuation 04/20/2020 12:00:00 AM EST spray,suspension 16 SPRAY TWO SPRAYS IN EACHNOSTRIL EVERY DAY SPRAY TWO SPRAYS IN EACHNOSTRIL EVERY DAY SOLD: 04/26/2020 [facility] 50 mg 04/19/2020 12:00:00 AM EST tablet 45 TAKE 1/2 TABLET BY MOUTH ONCE A DAY TAKE 1/2 TABLET BY MOUTH ONCE A DAY SOLD: 04/26/2020 [facility] 100 mg 04/05/2020 12:00:00 AM EDT tablet 90 TAKE ONE TABLET BY MOUTH EVERY DAY TAKE ONE TABLET BY MOUTH EVERY DAY SOLD: 04/08/2020 [facility] 50 mg 03/21/2020 12:00:00 AM EDT tablet 90 TAKE ONE TABLET BY MOUTH EVERY DAY TAKE ONE TABLET BY MOUTH EVERY DAY SOLD: 03/27/2020 [facility] 10 mg 02/23/2020 12:00:00 AM EDT tablet 90 TAKE ONE TABLET BY MOUTH EVERY DAY TAKE ONE TABLET BY MOUTH EVERY DAY SOLD: 02/27/2020 [facility] 20 mg 02/23/2020 12:00:00 AM EDT capsule,delayed release (DR/EC) 90 TAKE ONE CAPSULE BY MOUTH EVERY DAY TAKE ONE CAPSULE BY MOUTH EVERY DAY SOLD: 02/27/2020 [facility] 50 mg 01/25/2020 12:00:00 AM EDT tablet 45 TAKE ONE-HALF TABLET BY MOUTH EVERY DAY TAKE ONE-HALF TABLET BY MOUTH EVERY DAY SOLD: 01/27/2020 [facility] 5 mg 01/06/2020 12:00:00 AM EDT tablet 90 TAKE ONE TABLET BY MOUTH EVERY DAY TAKE ONE TABLET BY MOUTH EVERY DAY SOLD: 01/12/2020 [facility] 1,250 mcg (50,000 unit) 01/06/2020 12:00:00 AM EDT capsule 13 TAKE ONE TABLET BY MOUTH ONCE A MONTH TAKE ONE TABLET BY MOUTH ONCE A MONTH SOLD: 01/12/2020 [facility] 100 mg 01/06/2020 12:00:00 AM EDT tablet 90 TAKE ONE TABLET BY MOUTH EVERY DAY TAKE ONE TABLET BY MOUTH EVERY DAY SOLD: 01/12/2020 [facility] 50 mg 12/15/2019 12:00:00 AM EDT tablet 90 TAKE ONE TABLET BY MOUTH EVERY DAY TAKE ONE TABLET BY MOUTH EVERY DAY SOLD: 12/19/2019 [facility] 10 mg 11/19/2019 12:00:00 AM EDT tablet 90 TAKE ONE TABLET BY MOUTH EVERY DAY TAKE ONE TABLET BY MOUTH EVERY DAY SOLD: 11/28/2019 [facility] 20 mg 11/19/2019 12:00:00 AM EDT capsule,delayed release (DR/EC) 90 TAKE ONE CAPSULE BY MOUTH EVERY DAY TAKE ONE CAPSULE BY MOUTH EVERY DAY SOLD: 11/28/2019 [facility] 50 mg 09/28/2019 12:00:00 AM EDT tablet 45 TAKE ONE-HALF TABLET BY MOUTH EVERY DAY TAKE ONE-HALF TABLET BY MOUTH EVERY DAY SOLD: 09/29/2019 [facility] 5 mg 09/28/2019 12:00:00 AM EDT tablet 45 TAKE ONE TABLET BY MOUTH EVERY OTHER DAY TAKE ONE TABLET BY MOUTH EVERY OTHER DAY SOLD: 09/29/2019 [facility] 500 mg 09/28/2019 12:00:00 AM EDT capsule 40 TAKE TWO CAPSULES BY MOUTH TWICE A DAY TAKE TWO CAPSULES BY MOUTH TWICE A DAY SOLD: 09/29/2019 [facility] 100 mg 09/28/2019 12:00:00 AM EDT tablet 90 TAKE ONE TABLET BY MOUTH EVERY DAY TAKE ONE TABLET BY MOUTH EVERY DAY SOLD: 09/29/2019 [facility] 50 mg 09/23/2019 12:00:00 AM EDT tablet 90 TAKE ONE TABLET BY MOUTH EVERY DAY TAKE ONE TABLET BY MOUTH EVERY DAY SOLD: 09/24/2019 [facility] 10 mg 08/28/2019 12:00:00 AM EDT tablet 90 TAKE ONE TABLET BY MOUTH EVERY DAY TAKE ONE TABLET BY MOUTH EVERY DAY SOLD: 08/29/2019 [facility] 20 mg 08/28/2019 12:00:00 AM EDT capsule,delayed release (DR/EC) 90 TAKE ONE CAPSULE BY MOUTH EVERY DAY TAKE ONE CAPSULE BY MOUTH EVERY DAY SOLD: 08/29/2019 [facility] 100 mg 07/11/2019 12:00:00 AM EST tablet 30 TAKE ONE TABLET BY MOUTH EVERY DAY TAKE ONE TABLET BY MOUTH EVERY DAY SOLD: 08/09/2019 [facility] 100 mg 07/11/2019 12:00:00 AM EST tablet 30 TAKE ONE TABLET BY MOUTH EVERY DAY TAKE ONE TABLET BY MOUTH EVERY DAY SOLD: 09/10/2019 [facility] 100 mg 07/11/2019 12:00:00 AM EST tablet 30 TAKE ONE TABLET BY MOUTH EVERY DAY TAKE ONE TABLET BY MOUTH EVERY DAY SOLD: 07/11/2019 [facility] 0.005 % 07/10/2019 12:00:00 AM EST drops 10 INSTILL ONE DROP OPHTHALMIC (EYE) AT BEDTIME IN EACH EYE INSTILL ONE DROP OPHTHALMIC (EYE) AT BED TIME IN EACH EYE SOLD: 07/11/2019 [facility] latanoprost 0.05 MG/ML Ophthalmic Soluti on Latanoprost 0.005% Ophthalmic Solution Latanoprost 0.005% Ophthalmic Solution 07/09/2019 12:00:00 AM EST 1 active latanoprost 0.05 MG/ ML Ophthalmic Solution JESUP (Virgilio Molina MD [facility]) 1,250 mcg (50,000 unit) 06/23/2019 12:00:00 AM EST capsule 3 TAKE 1 CAPSULE BY MOUTH ONCE A MONTH TAKE 1 CAPSULE BY MOUTH ONCE A MONTH SOLD: 06/26/2019 [facility] Losartan Potassium 50 MG Oral Tablet LOSARTAN POTASSIUM 01/2020 12:00:00 AM EST tablet 90 TAKE ONE TABLET BY MOUTH TREVON DAY TAKE ONE TABLET BY MOUTH EVERY DAY SOLD: 06/26/2019 [facility] 150 mg 05/14/2019 12:00:00 AM EST tablet 2 TAKE 1 TABLET BY MOUTH AT ONSET OF SYMPTOMS MAY REPEAT IN 1 WEEK TAKE 1 TABLET BY MOUTH AT ONSET OF SYMPT OMS MAY REPEAT IN 1 WEEK SOLD: 05/14/2019 [facility] 50 mcg/actuation 05/05/2019 12:00:00 AM EST spray,suspension 16 USE 1 SPRAY IN EACH NOSTRIL ONCE DAILY DIRECTED USE 1 SPRAY IN EACH NOSTRIL ONCE DAILY A S DIRECTED SOLD: 05/05/2019 [facility] Amoxicillin 875 MG / Clavulanate 125 MG Oral Tablet Am oxicillin/Clavulanate Potassium 05/05/2019 12:00:00 AM EST ORAL active MEDENT ([facility], [facility]) Flonase Allergy Relief Flonase Allergy Relief 05/05/2019 12:00:[address] active MEDENT ([facility], [facility]) 50 mcg/actuation 05/05/2019 12:00:00 AM EST spray,suspension 16 USE 1 SPRAY IN EACH NOSTRIL ONCE DAILY DIRECTED USE 1 SPRAY IN EACH NOSTRIL ONCE DAILY A S DIRECTED SOLD: 11/09/2019 [facility] 875-125 mg 05/05/2019 12:00:00 AM EST tablet 20 TAKE ONE TABLET BY MOUTH TWICE A DAY FOR 10 DAYS TAKE ONE TABLET BY MOUTH TWICE A DAY FOR 10 DAYS SOLD: 05/05/2019 [facility] 5 mg 07/04/2018 12:00:00 AM EST tablet 135 TAKE 1 & 1/2 BY MOUTH ONCE DAILY TAKE 1 & 1/2 BY MOUTH ONCE DAILY SOLD: 06/07/2019 [facility] latanoprost 0.05 MG/ML Ophthalmic Soluti on Latanoprost 0.005% Ophthalmic Solution Latanoprost 0.005% Ophthalmic Solution 10/22/2017 12:00:00 AM EDT 1 aborted latanoprost 0.05 MG/ ML Ophthalmic Solution JESUP (Virgilio Molina MD [facility]) Insurance Providers Payer name Policy type / Coverage type Policy ID Covered green party ID Covered green party's relationship to nava Policy Nava Plan Information MEDICARE COMPLETE [id number] SP [id number] MEDICARE COMPLETE-[facility] O [id number] S [id number] [facility]-Medicare Solutions Commercial [id number] Self [id number] [employer] Medigap Part B [id number] Self [id number] [facility] Medicare Solutions Commercial [id number] Self [id number] [facility]-Medicare Solutions Commercial [id number] Self [id number] [facility]/Medicare Solu Commercial [id number] Self [id number] [facility]-Medicare Solutions Commercial [id number] Self [id number] [facility]-Medicare Solutions Commercial [id number] Self [id number] [facility] MEDICARE O/P [id number] 18 [id number] MEDICARE COMPLETE [id number] SP [id number] [employer] Medigap Part B [id number] Self [id number] [facility] Medicare Commercial [id number] Self [id number] [facility]-Medicare Solutions Commercial [id number] Self [id number] [facility] [id number] Self [id number] [employer] Medigap Part B Self [facility] Medicare Solutions Commercial Self MEDICARE COMPLETE [id number] SP [id number] Problems, Conditions, and Diagnoses Code Display Name Description Problem Type Effective Dates Data Source(s) [id number] Posterior Capsule Opacification Eccentri c Capsule Both Eyes 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 Problem 02/14 12:00:00 AM EDT DANIEL (Virgilio Molina MD [facility]) [id number] Posterior Capsule Opacification Eccentri c Capsule Both Eyes 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 Problem 02/14 12:00:00 AM EDT DANIEL (Virgilio Molina MD [facility]) Surgeries/Procedures Procedure Description Date Indications Data Source(s) Extracapsular extraction of lens (procedure) History o f extracapsular cataract extraction PCIOL OS 09/04/[address] Galarza ~PCIOL OD with iStent 09/18/[address] Galarza 03/02/2020 12:00:00 AM EDT DANIEL (Francisco Molina MD [facility]) Extracapsular extraction of lens (procedure) History o f extracapsular cataract extraction PCIOL OS 09/04/[address] Galarza ~PCIOL OD 09/18/[address] Galarza 03/02/2020 12:00:00 AM EDT DANIEL (Francisco Molina MD [facility]) Scodi, optic nerve with interpretation a nd report (WAIVER OF LIABILITY ON FILE (ABN)) Scodi, optic nerve with interpretation a nd report (WAIVER OF LIABILITY ON FILE (ABN)) 02/11/2020 12:00:00 AM EDT DANIEL (Francisco Molina MD [facility]) Comprehensive eye exam established patient (Signi/Sep Eval. & Man.) Comprehensive eye exam established patient (Signi/Sep Eval. & Man.) 02/11/2020 12:00:00 AM EDT DANIEL (Virgilio Molina MD [facility]) ECG ROUTINE ECG W/LEAST 12 LDS W/I&R 07/28/2019 12:00: 00 AM EST [facility] ([facility]) Intermediate Eye Exam Established Patient Intermediate Eye Exam Established Patient 07/13/2019 12:00:00 AM EST DANIEL (Francisco Molina MD [facility]) Results ID Date Data Source [id number] 07/01/2020 12:38:00 PM EST [facility] ([facility]) Name Value Range Interpretation Code Description Data Becca rce(s) Supporting Document(s) Bacteria identified in Urine by Culture Laboratory test result [facility] ([facility]) FULL REPORT IN LAB NOTES ([facility] and [facility] ). SPECIMEN APPEARS CONTAMINATED Procedure Social History Code Duration Value Status Description Data Source(s ) Smoking 07/01/2020 12:00:00 AM EST Patient is a former smoker completed Patient is a former smoker [facility] Smoking 03/02/2020 01:49:39 PM EDT Ex-smoker (finding) complet ed Ex-smoker (finding) DANIEL (Virgilio Molina MD [facility]) Smoking 03/02/2020 01:40:47 PM EDT Ex-smoker (finding) complet ed Ex-smoker (finding) DANIEL (Virgilio Molina MD [facility]) Smoking 03/02/2020 01:04:49 PM EDT Ex-smoker (finding) complet ed Ex-smoker (finding) JESUP (Virgilio Molina MD [facility]) Vital Signs ID Date Data Source UNK Name Value Range Interpretation Code Description Data Source(s) Body mass index (BMI) [Ratio] 30.0 kg/m2 30.0 k g/m2 [facility] Body height 62 [in_i] 62 [in_i] [facility]) 5'2" Body weight 164.00 [lb_av] 164.00 [lb_av] MEDEN T ([facility]) Body temperature 97.8 [degF] 97.8 [degF] [facility] Oxygen saturation in Arterial blood by Pulse oximetry 96 % 96 % [facility] ([facility], [facility]) Respiratory rate 16 /min 16 /min MEDENT ( [facility], [facility]) Heart rate 68 /min 68 /min MEDENT ([facility], [facility]) Diastolic blood pressure 80 mm[Hg] 80 mm[Hg] MEDENT ([facility], [facility]) Systolic blood pressure 122 mm[Hg] 122 mm[Hg] [facility], [facility]) Body mass index (BMI) [Ratio] 30.0 kg/m2 30.0 k g/m2 MEDENT ([facility], [facility]) Body height 62 [in_i] 62 [in_i] MEDENT ([facility] [place], [facility]) 5'2" Body weight 164.00 [lb_av] 164.00 [lb_av] MEDEN T ([facility], [facility]) Body temperature 97.9 [degF] 97.9 [degF] [facility], [facility]) Oxygen saturation in Arterial blood by Pulse oximetry 96 % 96 % [facility] ([facility], [facility]) Respiratory rate 14 /min 14 /min [facility] ( [facility], [facility]) Heart rate 63 /min 63 /min [facility] ([facility], [facility]) Diastolic blood pressure 76 mm[Hg] 76 mm[Hg] [facility] ([facility], [facility]) Systolic blood pressure 114 mm[Hg] 114 mm[Hg] [facility] ([facility], [facility]) Diastolic blood pressure--sitting 82 mm[Hg] 82 mm[Hg] MEDENT ([facility]) Systolic blood pressure--sitting 130 mm[Hg] 130 mm[Hg] MEDENT ([facility]) Heart rate 67 /min 67 /min MED[facility] ([facility]) Body mass index (BMI) [Ratio] 29.6 kg/m2 29.6 k g/m2 MEDENT ([facility]) Body height 62 [in_i] 62 [in_i] MEDENT ([facility]) 5'2" Body weight 162.00 [lb_av] 162.00 [lb_av] MEDEN T ([facility]) Body mass index (BMI) [Ratio] 30.0 kg/m2 30.0 k g/m2 MEDENT ([facility], [facility]) Body height 62 [in_i] 62 [in_i] MEDENT ([facility], [facility]) 5'2" Body weight 164.00 [lb_av] 164.00 [lb_av] MEDEN T ([facility], [facility]) Body temperature 98.8 [degF] 98.8 [degF] [facility] ([facility], [facility]) Oxygen saturation in Arterial blood by Pulse oximetry 97 % 97 % [facility] ([facility], [facility]) Respiratory rate 12 /min 12 /min [facility] ( [facility], [facility]) Heart rate 89 /min 89 /min [facility] ([facility], [facility]) Diastolic blood pressure 79 mm[Hg] 79 mm[Hg] [facility] ([facility]) Systolic blood pressure 161 mm[Hg] 161 mm[Hg] M [facility] ([facility], [facility]) Patient Treatment Plan of Care Planned Activity Planned Date Details Description Data Source (s) latanoprost 0.05 MG/ML Ophthalmic Solution 07/09/2019 12:00:00 AM E [facility] (Virgilio Molina MD [facility]) latanoprost 0.05 MG/ML Ophthalmic Solution 10/22/2017 12:00:00 AM E [facility] (Virgilio Molina MD [facility])
[2020-07-02] MEDS ORDERED: AZO-95TA3 PO (21:09)
[2020-07-02] MEDS ORDERED: NITR-67 PO (21:09)
[2020-07-02] MEDS ORDERED: ACETAMINOPHEN TAB 650MG DOSE (2X325MG) PO ONE (21:45)
[2020-07-02] MEDS: NS 1,000 ML IV SCH (22:08)
--- NOTE | 2020-07-02 22:15 | REPVR ---
PROCEDURE INFORMATION: Exam: CT Head Without Contrast Exam date and time: 07/02/2020 9:41 PM Age: 79 years old Clinical indication: Syncope and collapse TECHNIQUE: Imaging protocol: Computed tomography of the head without contrast. Radiation optimization: All CT scans at this facility use at least one of these dose optimization techniques: automated exposure control; mA and/or kV adjustment per patient size (includes targeted exams where dose is matched to clinical indication); or iterative reconstruction. COMPARISON: MRI-Brain without Contrast 04/18/2015 6:35 PM FINDINGS: Brain: Normal. No hemorrhage. Unremarkable white matter. No mass effect. Cerebral ventricles: No ventriculomegaly. Bones/joints: Unremarkable. No acute fracture. Paranasal sinuses: Visualized sinuses are unremarkable. No fluid levels. Mastoid air cells: Visualized mastoid air cells are well aerated. Soft tissues: Unremarkable. IMPRESSION: No acute intracranial abnormality. Electronically signed by: John Pearson On 07/02/2020 22:15:40 PM
--- NOTE | 2020-07-02 22:16 | REPVR ---
PROCEDURE INFORMATION: Exam: XR Chest, 1 View Exam date and time: 07/02/2020 10:12 PM Age: 79 years old Clinical indication: Other: Syncope; Additional info: Syncope/near-syncope TECHNIQUE: Imaging protocol: XR of the chest Views: 1 view. COMPARISON: OK PORTABLE CHEST X-RAY 08/25/2019 12:06 AM FINDINGS: Lungs: Minimal atelectasis at the left lung base. Pleural space: Unremarkable. No pleural effusion. No pneumothorax. Heart/Mediastinum: Unremarkable. No cardiomegaly. Bones/joints: Unremarkable. IMPRESSION: Minimal atelectasis at the left lung base. Electronically signed by: John Pearson On 07/02/2020 22:16:47 PM
[2020-07-02 22:28] LABS: BASO % 0.1 % (0.0-1.0); EOS # 0.4 10^3/uL (0.0-0.5); EOS % 2.6 % (0.0-3.0); HEMATOCRIT 43.1 % (36.0-47.0); HEMOGLOBIN 13.7 g/dl (12.0-15.5); LYMPH # 0.7 10^3/uL (1.5-5.0); LYMPH % 4.1 % (24.0-44.0); MEAN CORPUSCULAR HGB CONC 31.8 g/dl (32.0-36.5); MEAN CORPUSCULAR VOLUME 94.3 fl (80.0-96.0); MONO # 0.3 10^3/uL (0.0-0.8); MONO % 1.6 % (0.0-5.0); NEUTROPHILS # 15.3 10^3/uL (1.5-8.5); NEUTROPHILS % 90.9 % (36.0-66.0); PLATELET COUNT, AUTOMATED 217 10^3/uL (150-450); RED BLOOD COUNT 4.57 10^6/uL (4.00-5.40); WHITE BLOOD COUNT 16.9 10^3/uL (4.0-10.0)
[2020-07-02 22:34] LABS: BLOOD UREA NITROGEN 15 MG/DL (7-18); CALCIUM LEVEL 8.5 MG/DL (8.8-10.2); CARBON DIOXIDE LEVEL 23 MEQ/L (21-32); CHLORIDE LEVEL 103 MEQ/L (98-107); CK-MB VALUE MASS < 1.0 NG/ML (<3.6); CPK CREATINE PHOSPHOKINASE 68 U/L (26-192); CREATININE FOR GFR 1.22 MG/DL (0.55-1.30); GLOMERULAR FILTRATION RATE 45.5 (>39); GLUCOSE, FASTING 132 MG/DL (70-100); MAGNESIUM LEVEL 1.7 MG/DL (1.8-2.4); MB/CK RELATIVE INDEX 1.47 (< OR =4); SODIUM LEVEL 137 MEQ/L (136-145); TROPONIN I < 0.02 NG/ML (< 0.10)
[2020-07-02 22:35] LABS: ETHYL ALCOHOL (ETHANOL) < 0.003 % (0.000-0.010); PROTHROMBIN TIME 13.4 SECONDS (12.5-14.3)
--- OUTSIDE RECORDS SUMMARY | 2020-07-02 22:57 | CCD ---
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 Name Role Phone Nael, L Renata PA [...] L Renata PA Unavailable Unavailable Chambers, Christine AIRCRAFT INSTRUMENT REPAIRER Unavailable Unavailable Chambers, Christine AIRCRAFT INSTRUMENT REPAIRER Unavailable Unavailable Chambers, Christine AIRCRAFT INSTRUMENT REPAIRER Unavailable Unavailable Chambers, Christine AIRCRAFT INSTRUMENT REPAIRER Unavailable Unavailable Chambers, Christine AIRCRAFT INSTRUMENT REPAIRER Unavailable Unavailable Chambers, Christine AIRCRAFT INSTRUMENT REPAIRER Unavailable Unavailable Chambers, Christine AIRCRAFT INSTRUMENT REPAIRER Unavailable Unavailable Chambers, Christine AIRCRAFT INSTRUMENT REPAIRER Unavailable Unavailable Chambers, Christine AIRCRAFT INSTRUMENT REPAIRER Unavailable Unavailable Chambers, Christine AIRCRAFT INSTRUMENT REPAIRER Unavailable Unavailable Chambers, Christine AIRCRAFT INSTRUMENT REPAIRER Unavailable Unavailable Elissa GALARZA DO Unavailable [phone] Elissa GALARZA LORI DO Unavailable [phone] Elissa GALARZA LORI DO Unavailable [phone] Elissa GALARZA LORI DO Unavailable [phone] Elissa GALRAZA LORI DO Unavailable [phone] Elissa GALARZA [...] LORI DO Unavailable [phone] Elissa GALARZA LROI DO Unavailable [phone] Elissa GALARZA LORI [...] is protected by Article 27-F of the [facility] Public Health law. If you continue you may have access to information: Regarding HIV / AIDS; Provided by facilities licensed or operated by the [facility] Office of Mental Health; or Provided by the [facility] Office for People With Developmental Disabilities. If such information is present, then the following [facility] mandated warning applies: This information has [...] law may result in a fine or detention sentence or both. A general authorization for [...] Male Problem MEDENT ([facility], [facility]) Encounters Encounter Providers Location Date Indications Data Source(s ) Outpatient Attender: Christine Chambers NP Judith Calvin Danay fuad 07/01/2020 09:25:00 AM EST MEDENT ([facility], [facility]) Outpatient Attender: JOSEMANUEL CURRIE Judith Calvin Bernadette domenico 06/05/2020 02:25:00 PM EST MEDENT ([facility], [facility]) Outpatient<td ID="encounterTypeDescripti onID0">6 Month Follow-Up</td><td>Lori Galarza DO</td><td>Virgilio Newsome MD [facility]</td><td>02/11/2020</td><td>2:52PM</td><td>3:49PM</td><td><content ID="encounterDiagnosisID0-0">Dry Eye Syndrome</content>, <content ID="encounterDiagnosisID0-1">Taking Medication For [...] Long-term Use of Oral HypoglycemicsDry Eye Syndrome [facility] (Virgilio Molina MD [facility]) Posterior Capsule Opacification Eccentri c Capsule Both [...] 0 PM EST [facility] ([facility]) Outpatient<td ID="encounterTypeDescripti onID1">7 Month Follow-Up</td><td>Lori Galarza DO</td><td>Virgilio Newsome MD [facility]</td><td>07/13/2019</td><td>3:13PM</td><td>3:59PM</td><td><content ID="encounterDiagnosisID1-0">Glaucoma Open-angle Primary Both Eyes</content>, <content ID="encounterDiagnosisID1-1">Diabetes [...] 2 Without Complication [facility] (Virgilio Molina MD [facility]) Posterior Capsule Opacification Eccentri c Capsule Both [...] Christine merida 05/05/2019 02:50:00 PM EST MEDENT ([facility], [facility]) Immunizations Vaccine Date Status Description Data Source(s) [...] ORAL active MEDENT ([facility], [facility]) 50 mg 06/20/2020 12:00:00 AM EST tablet [...] active latanoprost 0.05 MG/ ML Ophthalmic Solution [facility] (Virgilio Molina MD [facility]) 1,250 mcg (50,000 unit) 06/23/2019 12:00:00 AM [...] 05/05/2019 12:00:00 AM EST ORAL active MEDENT ([facility], [facility]) Flonase Allergy Relief Flonase Allergy Relief 05/05/2019 12:00:[address] active MEDENT ([facility], [facility]) 50 mcg/actuation 05/05/2019 12:00:00 AM EST spray,suspension 16 USE 1 SPRAY IN EACH NOSTRIL ONCE DAILY DIRECTED USE 1 SPRAY IN EACH NOSTRIL ONCE DAILY A S DIRECTED SOLD: 11/09/2019 [facility] 875-125 mg 05/05/2019 12:00:00 AM EST tablet 20 TAKE ONE TABLET BY MOUTH TWICE A DAY FOR 10 DAYS TAKE ONE TABLET BY MOUTH TWICE A DAY FOR 10 DAYS SOLD: 05/05/2019 [facility] 5 mg 07/04/2018 12:00:00 AM EST tablet 135 TAKE 1 & 1/2 BY MOUTH ONCE DAILY TAKE 1 & 1/2 BY MOUTH ONCE DAILY SOLD: 06/07/2019 [facility] latanoprost 0.05 MG/ML Ophthalmic Soluti on Latanoprost 0.005% Ophthalmic Solution Latanoprost 0.005% Ophthalmic Solution 10/22/2017 12:00:00 AM EDT 1 aborted latanoprost 0.05 MG/ ML Ophthalmic Solution [facility] (Virgilio Molina MD [facility]) Insurance Providers Payer name Policy type / Coverage type Policy ID Covered republican ID Covered republican's relationship to nava Policy Nava Plan Information MEDICARE COMPLETE [id number] SP [id number] MEDICARE COMPLETE-[facility] O [id number] S [id number] [facility]-Medicare Solutions Commercial [id number] Self [id number] [employer] Medigap Part B [id number] Self [id number] [facility] Medicare Solutions Commercial [id number] Self [id number] [facility]-[employer]are [employer] Commercial [id number] Self [id number] [facility]/Medicare Solu Commercial [id number] Self [id number] [facility] Commercial [id number] Self [id number] [facility] Commercial [id number] Self [id number] [facility] MEDICARE O/P [id number] 18 [id number] MEDICARE COMPLETE [id number] SP [id number] [employer] Medigap Part B [id number] Self [id number] [facility] Medicare Commercial [id number] Self [id number] [facility]-Medicare Solutions Commercial [id number] Self [id number] [facility]/Medicare Solu Commercial [id number] Self [id number] [employer] Medigap Part B Self [facility] Medicare Solutions Commercial Self MEDICARE COMPLETE [id number] SP [id number] Problems, Conditions, and Diagnoses Code Display Name Description Problem Type Effective Dates Data Source(s) 33546150 Posterior Capsule Opacification Eccentri c Capsule Both Eyes 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 Problem 02/14 12:00:00 AM EDT [facility] (Virgilio Molina MD [facility]) [id number] Posterior Capsule Opacification Eccentri c Capsule Both Eyes 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 Problem 02/14 12:00:00 AM EDT [facility] (Virgilio Molina MD [facility]) Surgeries/Procedures Procedure Description Date Indications Data Source(s) Extracapsular extraction of lens (procedure) History o f extracapsular cataract extraction PCIOL OS 09/04/[address] Galarza ~PCIOL OD with iStent 09/18/[address] Galarza 03/02/2020 12:00:00 AM EDT [facility] (Francisco Molina MD [facility]) Extracapsular extraction of lens (procedure) History o f extracapsular cataract extraction PCIOL OS 09/04/[address] Galarza ~PCIOL OD 09/18/[address] Galarza 03/02/2020 12:00:00 AM EDT [facility] (Francisco Molina MD [facility]) Scodi, optic nerve with interpretation a nd report (WAIVER OF LIABILITY ON FILE (ABN)) Scodi, optic nerve with interpretation a nd report (WAIVER OF LIABILITY ON FILE (ABN)) 02/11/2020 12:00:00 AM EDT [facility] (Francisco Molina MD [facility]) Comprehensive eye exam established patient (Signi/Sep Eval. & Man.) Comprehensive eye exam established patient (Signi/Sep Eval. & Man.) 02/11/2020 12:00:00 AM EDT [facility] (Virgilio Molina MD [facility]) ECG ROUTINE ECG W/LEAST 12 LDS W/I&R 07/28/2019 12:00: 00 AM EST MED[facility] ([facility]) Intermediate Eye Exam Established Patient Intermediate Eye Exam Established Patient 07/13/2019 12:00:00 AM EST [facility] (Francisco Molina MD [facility]) Results ID Date Data Source [id number] 07/01/2020 12:38:00 PM EST MEDENT ([facility]) Name Value Range Interpretation Code Description Data Becca rce(s) Supporting Document(s) Bacteria identified in Urine by Culture Laboratory test result [facility] ([facility]) FULL REPORT IN LAB NOTES ([facility] and [facility] ). SPECIMEN APPEARS CONTAMINATED Procedure Social History Code Duration Value Status Description Data Source(s ) Smoking 07/01/2020 12:00:00 AM EST Patient is a former smoker completed Patient is a former smoker [facility] ([facility]) Smoking 03/02/2020 01:49:39 PM EDT Ex-smoker (finding) complet ed Ex-smoker (finding) [facility] (Virgilio Molina MD [facility]) Smoking 03/02/2020 01:40:47 PM EDT Ex-smoker (finding) complet ed Ex-smoker (finding) [facility] (Virgilio Molina MD [facility]) Smoking 03/02/2020 01:04:49 PM EDT Ex-smoker (finding) complet ed Ex-smoker (finding) [facility] (Virgilio Molina MD [facility]) Vital Signs ID Date Data Source UNK Name Value Range Interpretation Code Description Data Source(s) Body mass index (BMI) [Ratio] 30.0 kg/m2 30.0 k g/m2 [facility] Body height 62 [in_i] 62 [in_i] [facility] 5'2" Body weight 164.00 [lb_av] 164.00 [lb_av] MEDEN T ([facility]) Body temperature 97.8 [degF] 97.8 [degF] [facility] Oxygen saturation in Arterial blood by Pulse oximetry 96 % 96 % [facility] ([facility], [facility]) Respiratory rate 16 /min 16 /min MEDENT ( [facility], [facility]) Heart rate 68 /min 68 /min MED[facility] ([facility], [facility]) Diastolic blood pressure 80 mm[Hg] 80 mm[Hg] [facility] ([facility], [facility]) Systolic blood pressure 122 mm[Hg] 122 mm[Hg] [facility], [facility]) Body mass index (BMI) [Ratio] 30.0 kg/m2 30.0 k g/m2 [facility] ([facility], [facility]) Body height 62 [in_i] 62 [in_i] MEDENT ([facility], [facility]) 5'2" Body weight 164.00 [lb_av] 164.00 [lb_av] MEDEN T ([facility], [facility]) Body temperature 97.9 [degF] 97.9 [degF] [facility] ([facility], [facility]) Oxygen saturation in Arterial blood by Pulse oximetry 96 % 96 % [facility] ([facility], [facility]) Respiratory rate 14 /min 14 /min [facility] ( [facility], [facility]) Heart rate 63 /min 63 /min [facility] ([facility], [facility]) Diastolic blood pressure 76 mm[Hg] 76 mm[Hg] [facility] ([facility], [facility]) Systolic blood pressure 114 mm[Hg] 114 mm[Hg] [facility], [facility]) Diastolic blood pressure--sitting 82 mm[Hg] 82 mm[Hg] [facility] ([facility]) Systolic blood pressure--sitting 130 mm[Hg] 130 mm[Hg] [facility] ([facility]) Heart rate 67 /min 67 /min [facility] ([facility]) Body mass index (BMI) [Ratio] 29.6 kg/m2 29.6 k g/m2 [facility] ([facility]) Body height 62 [in_i] 62 [in_i] [facility] ([facility]) 5'2" Body weight 162.00 [lb_av] 162.00 [lb_av] MEDEN T ([facility]) Body mass index (BMI) [Ratio] 30.0 kg/m2 30.0 k g/m2 MEDENT ([facility], [facility]) Body height 62 [in_i] 62 [in_i] MEDENT ([facility], [facility]) 5'2" Body weight 164.00 [lb_av] 164.00 [lb_av] MEDEN T ([facility], [facility]) Body temperature 98.8 [degF] 98.8 [degF] [facility] ([facility], [facility]) Oxygen saturation in Arterial blood by Pulse oximetry 97 % 97 % [facility] ([facility], [facility]) Respiratory rate 12 /min 12 /min [facility] ( [facility], [facility]) Heart rate 89 /min 89 /min [facility] ([facility], [facility]) Diastolic blood pressure 79 mm[Hg] 79 mm[Hg] [facility] ([facility]) Systolic blood pressure 161 mm[Hg] 161 mm[Hg] M [facility] ([facility], [facility]) Patient Treatment Plan of Care Planned Activity Planned Date Details Description Data Source (s) latanoprost 0.05 MG/ML Ophthalmic Solution 07/09/2019 12:00:00 AM E [facility] (Virgilio Molina MD [facility]) latanoprost 0.05 MG/ML Ophthalmic Solution 10/22/2017 12:00:00 AM E [facility] (Virgilio Molina MD [facility])
[2020-07-02 23:55] LABS: RSV AMPLIFICATION NEGATIVE (NEGATIVE)
[2020-07-03 00:30] LABS: AMPHETAMINES LEVEL URINE NEGATIVE (NEGATIVE); BARBITURATES URINE NEGATIVE (NEGATIVE); BENZODIAZEPINES URINE NEGATIVE (NEGATIVE); CANNABINOIDS URINE NEGATIVE (NEGATIVE); COCAINE METABOLITE URINE NEGATIVE (NEGATIVE); METHADONE URINE NEGATIVE (NEGATIVE); OPIATES URINE NEGATIVE (NEGATIVE); PHENCYCLIDINE URINE NEGATIVE (NEGATIVE)
[2020-07-03] MEDS ORDERED: NS 1,000 ML IV ONE (01:15)
[2020-07-03] MEDS ORDERED: cefTRIAXone SOD 1 GM in D5W MINI-BAG PLUS 50 ML IV ONE (01:15)
--- NOTE | 2020-07-03 02:44 | HPEPDOC ---
General Date of Admission Date of Service: Jul 03, 2020 Primary Care Physician: Castillo Stack Attending Physician: Deondre Lemus MD Chief Complaint The patient is a 79-year-old female admitted with a reason for visit of Syncope. Source: Patient History of Present Illness Ms. Caicedo started to have dysuria about 2 days prior to admission. The day before admission she was seen in urgent care center and diagnosed with UTI. She was treated with Bactrim. The day of admission she was walking around her house and she felt dizzy like she was going to pass out and so she quickly sat down on the sofa. She's not certain, but she thinks she might of lost consciousness for a short period of time during that episode. Because she managed to get to the sofa she did not hurt herself in any way. Shortly after that she did vomit and had some urinary incontinence. Based on these concerning symptoms she sought care in the [facility] Home Medications Scheduled Ergocalciferol (Vitamin D2) (Vitamin D2) 50,000 Units Cap, 50,000 MG PO QMONTH, (Reported) Fluticasone Propionate (Fluticasone Propionate) 16 Gm [place].susp, 2 SPRAYS NA DAILY, (Reported) Losartan Potassium (Losartan Potassium) 50 Mg Tablet, 50 MG PO QHS, (Reported) Nebivolol HCl (Bystolic) 5 Mg Tab, 10 MG PO DAILY, (Reported) Nitrofurantoin Macrocrystal (Nitrofurantoin) 100 Mg Capsule, 100 MG PO BID, (Reported) STARTED 07/01/19 X 5 DAYS Omeprazole (Omeprazole) 20 Mg Capsule.dr, 20 MG PO DAILY, (Reported) Phenazopyridine HCl (Azo Urinary Pain Relief) 95 Mg Tablet, 95 MG PO TID, (Reported) Rosuvastatin Calcium (Rosuvastatin Calcium) 5 Mg Tab, 5 MG PO QHS, (Reported) Sertraline HCl (Sertraline HCl) 50 Mg Tab, 25 MG PO DAILY, (Reported) Sitagliptin Phosphate (Januvia) 100 Mg Tab, 100 MG PO DAILY, (Reported) Allergies Coded Allergies: Sulfa (Sulfonamide Antibiotics) (Verified Allergy, Unknown, 08/24/19) Past Medical History Medical History 1. Diabetes mellitus type 2 2. Hypertension 3. Tachycardia (the patient is unable to do more specific), treated by Dr. Cavazos Surgical History 1. Cholecystectomy (1969) Family History Hemochromatosis runs in her family. Additionally, she has a significant family history of lymphoma. Father in his 80s of lymphoma and leukemia Mother at 81 of heart failure Son, alive, 60 years old, diagnosed with lymphoma presently Daughter, at 55 years of age, brain tumor Social History * Smoker: former Smoker (quit in 1989, reports she only smoked socially prior to that) Alcohol: rarely (only on special occasions) A-FIB/CHADSVASC A-FIB History Current/History of A-Fib/PAF?: No Review of Systems Constitutional: Reports: Malaise; Denies: Chills, Fever ENT: Denies: Head Aches, Sore Throat Skin: Denies: Rash, Lesions Pulmonary: Denies: Dyspnea, Cough Cardiovascular: Reports: Lt Headedness; Denies: Chest Pain, Palpitations Gastrointestinal: Reports: Abdominal Pain (vague); Denies: Nausea, Vomiting Genitourinary: Reports: Dysuria, Frequency, Incontinence; Denies: Hematuria Endocrine: Denies: Polydipsia, Polyphagia, Polyuria Neurological: Denies: Change in speech, Confusion Psych: Reports: Mood Normal Physical Examination General Exam: Positive: Alert, Cooperative (laying comfortably on the ER stretcher when I entered the room), No Acute Distress Eye Exam: Positive: PERRLA, Conjunctiva & lids normal; Negative: Sclera icteric ENT Exam: Positive: Atraumatic, Pharynx Normal; Negative: Mucous membr. moist/pink (mild dryness to the membranes) Neck Exam: Negative: Supple, Lymphadenopathy Chest Exam: Positive: Clear to auscultation, Normal air movement Heart Exam: Positive: Rate Normal, Regular Rhythm, Normal S1, Normal S2; Negative: Gallops, Murmurs, Rubs Abdomen Exam: Positive: Normal bowel sounds, Soft, Tenderness (mild generalized tenderness to the abdomen); Negative: Other (point or rebound tenderness) Extremity Exam: Negative: Edema Skin Exam: Positive: Nl turgor and temperature Neuro Exam: Positive: Normal Speech, Normal Tone Psych Exam: Positive: Mental status NL, Mood NL, Memory Intact Vital Signs Vital Signs Date Time Temp Pulse Resp B/P (MAP) Pulse Ox O2 Delivery O2 Flow Rate FiO2 07/03/20 00:07 91/53 (66) 07/03/20 00:00 75 07/02/20 23:57 93 07/02/20 21:25 100.8 07/02/20 20:59 18 Room Air Laboratory Data Labs 24H Laboratory Tests 2 07/02/20 21:45: Coronavirus (COVID-19)(PCR) NEGATIVE, Influenza Type A (RT-PCR) NEGATIVE, Influenza Type B (RT-PCR) NEGATIVE, Respiratory Syncytial Virus (PCR) NEGATIVE 07/02/20 21:46: Prothrombin Time 13.4, Prothromb Time International Ratio 1.00, Anion Gap 11, Glomerular Filtration Rate 45.5, Calcium Level 8.5L, Magnesium Level 1.7L, Total Creatine Kinase 68, Creatine Kinase MB < 1.0, Creatine Kinase MB Relative Index 1.47, Troponin I < 0.02, Thyroid Stimulating Hormone (TSH) 2.660, Ethyl Alcohol Level < 0.003 07/02/20 21:47: Immature Granulocyte % (Auto) 0.7, Neutrophils (%) (Auto) 90.9H, Lymphocytes (%) (Auto) 4.1L, Monocytes (%) (Auto) 1.6, Eosinophils (%) (Auto) 2.6, Basophils (%) (Auto) 0.1, Neutrophils # (Auto) 15.3H, Lymphocytes # (Auto) 0.7L, Monocytes # (Auto) 0.3, Eosinophils # (Auto) 0.4, Basophils # (Auto) 0.0, Nucleated Red Blood Cells % (auto) 0.0 07/02/20 23:49: Urine Color TASHIA, Urine Appearance CLEAR, Urine pH 5.0, Urine Specific Chavies 1.016, Urine Protein 1+H, Urine Glucose (UA) 1+H, Urine Ketones NEGATIVE, Urine Blood NEGATIVE, Urine Nitrite POSITIVEH, Urine Bilirubin NEGATIVE, Urine Urobilinogen 4.0H, Urine Leukocyte Esterase NEGATIVE, Urine WBC (Auto) 9H, Urine RBC (Auto) 2, Urine Hyaline Casts (Auto) 0, Urine Bacteria (Auto) 1+H, Urine Squamous Epithelial Cells 1, Urine Transitional Epithelial Cells 1, Urine Mucus (Auto) SMALL, Urine Sperm (Auto) , Urine Opiates Screen NEGATIVE, Urine Methadone Screen NEGATIVE, Urine Barbiturates Screen NEGATIVE, Urine Phencyclidine Screen NEGATIVE, Urine Amphetamines Screen NEGATIVE, Urine Benzodiazepines Screen NEGATIVE, Urine Cocaine Metabolite Screen NEGATIVE, Urine Cannabinoids Screen NEGATIVE CBC/BMP Laboratory Tests 07/02/20 21:46 07/02/20 21:47 Microbiology Microbiology 07/02/20 Urine Culture, Received Pending Assessment/Plan This is a 79-year-old woman who requires admission to the hospital for inadequate response to outpatient treatment of a urinary tract infection and new syncopal symptoms. Problems (1) UTI (urinary tract infection) Status: Acute Problem Text: Based on her current labs it does not sound as if the Bactrim is working for her. Additionally, she reports to me that she has an allergy to sulfa based drugs so I think this is a poor choice for her overall. I will change her to IV ceftriaxone. Urine culture is pending. (2) Syncope Status: Acute Problem Text: I suspect the UTI and possible dehydration related to it other causes of her syncopal event. We are rehydrating her IV. I am monitoring her on telemetry to evaluate for any arrhythmias. I have not pursued a more extensive syncope workup at this time as I do believe this symptom is related to her infection. If she has persistent symptoms or abnormal vitals we may need to look into this further. (3) Diabetes Status: Chronic Problem Text: We will monitor her blood glucose levels and use a correctional insulin if necessary while here. (4) Hypertension Status: Chronic Problem Text: Her blood pressure is currently well controlled. Continue current regimen, monitor. (5) Nausea and vomiting Problem Text: She is not complaining of this symptom while here in the [facility]. I have put Zofran as a when necessary on her chart in case it develops again. Plan / VTE VTE Prophylaxis Ordered?: Yes (TEDS/Lovenox) Plan Advanced Directives: Health Care Proxy (HCP) (she identifies her daughter, Janice Dick [phone], as her alternate decision maker should she not be able to make her own medical decisions. She wishes to be FULL CODE.) Deondre Lemus MD Jul 03, 2020 02:44
[2020-07-03] MEDS ORDERED: ACETAMINOPHEN 500 MG TAB PO ONE (02:45)
[2020-07-03] MEDS ORDERED: GLUCOSE 4GM CHEW TABLET PO PRN (02:45)
[2020-07-03] MEDS ORDERED: DEXTROSE 50% 50 ML SYRINGE IV PRN (02:45)
[2020-07-03] MEDS ORDERED: GLUCAGON INJ 1MG VIAL SC PRN (02:45)
[2020-07-03] MEDS ORDERED: MED REC COMMENT (03:01)
--- OUTSIDE RECORDS SUMMARY | 2020-07-03 03:06 | CCD | Continuity of Care Document ---
Author Author Cecilia MEI Organization Unknown Address [address] [place] [address] [place] [address] Phone [phone] Care Team Providers Care Title Processor Name Role Phone [facility] AUTM [phone] Problems Description No Information Available Social [...] 3 Yrs And Above For Intramuscular Use 9215477 Q2037 Given 04/09/2013 Influenza Virus Split 3 Yrs And Above For Intramuscular Use 6309913 Q2037 Given 04/08/2012 Influenza Virus Split 3 Yrs And Above For Intramuscular Use [id number] Q2037 Given 04/05/2011 Influenza Virus Split 3 Yrs And Above For Intramuscular Use [id number] Q2037 Given 03/16/2010 Influenza Virus Split 3 [...] H/L Range Note Laboratory test finding 07/01/[address] [address] [phone] Urine Culture FULL REPORT IN L <SEE NOTE> Normal 1, 2 1 FULL REPORT IN LAB NOTES (eC W and [facility]). SPECIMEN APPEARS CONTAMINATED 2 07/02/20 ([place] Jul 02) 02:37 PM YANNI SANCHEZ pt on macrobid Procedures Description No Information Available Medical Devices [...]
--- OUTSIDE RECORDS SUMMARY | 2020-07-03 03:07 | CCD ---
Author Author [facility] Organization [facility] Address Unknown Phone Unavailable Care Team Providers Care Beater Lead Name Role Phone Nael, L Renata PA [...] L Renata PA Unavailable Unavailable Chambers, Christine GAS ENGINE OPERATOR GENERATORS Unavailable Unavailable Chambers, Christine GAS ENGINE OPERATOR GENERATORS Unavailable Unavailable Chambers, Christine GAS ENGINE OPERATOR GENERATORS Unavailable Unavailable Chambers, Christine GAS ENGINE OPERATOR GENERATORS Unavailable Unavailable Chambers, Christine GAS ENGINE OPERATOR GENERATORS Unavailable Unavailable Chambers, Christine GAS ENGINE OPERATOR GENERATORS Unavailable Unavailable Chambers, Christine GAS ENGINE OPERATOR GENERATORS Unavailable Unavailable Chambers, Christine GAS ENGINE OPERATOR GENERATORS Unavailable Unavailable Chambers, Christine GAS ENGINE OPERATOR GENERATORS Unavailable Unavailable Chambers, Christine GAS ENGINE OPERATOR GENERATORS Unavailable Unavailable Chambers, Christine GAS ENGINE OPERATOR GENERATORS Unavailable Unavailable Elissa GALARZA DO Unavailable [phone] [...] by Article 27-F of the [facility] Public Health law. If you continue you may have access to information: Regarding HIV / AIDS; Provided by facilities licensed or operated by the [facility] Office of Mental Health; or Provided by the [facility] Office for People With Developmental Disabilities. If such information is present, then the following [facility] mandated warning applies: This information has [...] law may result in a fine or mcc sentence or both. A general authorization for [...] Male Problem [facility] ([facility], [facility]) Encounters Encounter Providers Location Date Indications Data Source(s ) Outpatient Attender: Christine Chambers NP Judith Calvin Danay fuad 07/01/2020 09:25:00 AM EST [facility] ([facility], [facility]) Outpatient Attender: JOSEMANUEL CURRIE Judith Calvni Bernadette domenico 06/05/2020 02:25:00 PM EST [facility] ([facility], [facility]) Outpatient<td ID="encounterTypeDescripti onID0">6 Month Follow-Up</td><td>Lori Galarza DO</td><td>Virgilio Newsome MD [facility]</td><td>02/11/2020</td><td>2:52PM</td><td>3:49PM</td><td><content ID="encounterDiagnosisID0-0">Dry Eye Syndrome</content>, <content ID="encounterDiagnosisID0-1">Taking Medication For [...] Long-term Use of Oral HypoglycemicsDry Eye Syndrome KIRKLIN (Virgilio Molina MD [facility]) Posterior Capsule Opacification Eccentri c Capsule Both [...] 0 PM EST SHANON ([facility]) Outpatient<td ID="encounterTypeDescripti onID1">7 Month Follow-Up</td><td>Lori Galarza DO</td><td>Virgilio Newsome MD [facility]</td><td>07/13/2019</td><td>3:13PM</td><td>3:59PM</td><td><content ID="encounterDiagnosisID1-0">Glaucoma Open-angle Primary Both Eyes</content>, <content ID="encounterDiagnosisID1-1">Diabetes [...] 2 Without Complication DANIEL (Virgilio Molina MD [facility]) Posterior Capsule Opacification Eccentri c Capsule Both [...] Christine merida 05/05/2019 02:50:00 PM EST [facility] ([facility], [facility]) Immunizations Vaccine Date Status Description Data Source(s) [...] ORAL active [facility] ([facility], [facility]) 50 mg 06/20/2020 12:00:00 AM EST tablet [...] active latanoprost 0.05 MG/ ML Ophthalmic Solution KIRKLIN (Virgilio Molina MD [facility]) 1,250 mcg (50,000 unit) 06/23/2019 12:00:00 AM [...] 05/05/2019 12:00:00 AM EST ORAL active [facility] ([facility], [facility]) Flonase Allergy Relief Flonase Allergy Relief 05/05/2019 12:00:[address] active [facility] ([facility], [facility]) 50 mcg/actuation 05/05/2019 12:00:00 AM EST spray,suspension 16 USE 1 SPRAY IN EACH NOSTRIL ONCE DAILY DIRECTED USE 1 SPRAY IN EACH NOSTRIL ONCE DAILY A S DIRECTED SOLD: 11/09/2019 [facility] 875-125 mg 05/05/2019 12:00:00 AM EST tablet 20 TAKE ONE TABLET BY MOUTH TWICE A DAY FOR 10 DAYS TAKE ONE TABLET BY MOUTH TWICE A DAY FOR 10 DAYS SOLD: 05/05/2019 [facility] 5 mg 07/04/2018 12:00:00 AM EST tablet 135 TAKE 1 & 1/2 BY MOUTH ONCE DAILY TAKE 1 & 1/2 BY MOUTH ONCE DAILY SOLD: 06/07/2019 [facility] latanoprost 0.05 MG/ML Ophthalmic Soluti on Latanoprost 0.005% Ophthalmic Solution Latanoprost 0.005% Ophthalmic Solution 10/22/2017 12:00:00 AM EDT 1 aborted latanoprost 0.05 MG/ ML Ophthalmic Solution KIRKLIN (Virgiloi Molina MD [facility]) Insurance Providers Payer name Policy type / Coverage type Policy ID Covered libertarian ID Covered libertarian's relationship to nava Policy Nava Plan Information MEDICARE COMPLETE [id number] SP [id number] MEDICARE COMPLETE-[facility] O [id number] S [id number] [facility]-Medicare Solutions Commercial [id number] Self [id number] [employer] Medigap Part B [id number] Self [id number] [facility] Medicare Solutions Commercial [id number] Self [id number] [facility]are [employer] Commercial [id number] Self [id number] [facility]/Medicare Solu Commercial [id number] Self [id number] [facility]icare [employer] Commercial [id number] Self [id number] [facility] [employer] Commercial [id number] Self [id number] [facility] MEDICARE O/P [id number] 18 [id number] MEDICARE COMPLETE [id number] SP [id number] [employer] Medigap Part B [id number] Self [id number] [facility] Medicare Commercial [id number] Self [id number] [facility]-[employer]are [employer] Commercial [id number] Self [id number] [facility]/Medicare Solu Commercial [id number] Self [id number] [employer] Medigap Part B Self [facility] Medicare Solutions Commercial Self MEDICARE COMPLETE [id number] SP [id number] Problems, Conditions, and Diagnoses Code Display Name Description Problem Type Effective Dates Data Source(s) 24357941 Posterior Capsule Opacification Eccentri c Capsule Both Eyes 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 Problem 02/14 12:00:00 AM EDT DANIEL (Virgilio Molina MD [facility]) [id number] Posterior Capsule Opacification Eccentri c Capsule Both Eyes 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 Problem 02/14 12:00:00 AM EDT DANIEL (Virgilio Molina MD [facility]) Surgeries/Procedures Procedure Description Date Indications Data Source(s) Extracapsular extraction of lens (procedure) History o f extracapsular cataract extraction PCIOL OS 09/04/[address] Galarza ~PCIOL OD with iStent 09/18/[address] Galarza 03/02/2020 12:00:00 AM EDT DANIEL (Francisco Molina MD [facility]) Extracapsular extraction of lens (procedure) History o f extracapsular cataract extraction PCIOL OS 09/04/[address] Galarza ~PCIOL OD 09/18/[address] Galarza 03/02/2020 12:00:00 AM EDT DANIEL (Francisco Molina MD [facility]) Scodi, optic nerve with interpretation a nd report (WAIVER OF LIABILITY ON FILE (ABN)) Scodi, optic nerve with interpretation a nd report (WAIVER OF LIABILITY ON FILE (ABN)) 02/11/2020 12:00:00 AM EDT DANIEL (Francisco Molina MD [facility]) Comprehensive eye exam established patient (Signi/Sep Eval. & Man.) Comprehensive eye exam established patient (Signi/Sep Eval. & Man.) 02/11/2020 12:00:00 AM EDT DANIEL (Virgilio Molina MD [facility]) ECG ROUTINE ECG W/LEAST 12 LDS W/I&R 07/28/2019 12:00: 00 AM EST [facility] ([facility]) Intermediate Eye Exam Established Patient Intermediate Eye Exam Established Patient 07/13/2019 12:00:00 AM EST DANIEL (Francisco Molina MD [facility]) Results ID Date Data Source [id number] 07/01/2020 12:38:00 PM EST [facility] ([facility]) Name Value Range Interpretation Code Description Data Becca rce(s) Supporting Document(s) Bacteria identified in Urine by Culture Laboratory test result [facility] ([facility]) FULL REPORT IN LAB NOTES ([facility] and [facility] ). SPECIMEN APPEARS CONTAMINATED Procedure Social History Code Duration Value Status Description Data Source(s ) Smoking 07/01/2020 12:00:00 AM EST Patient is a former smoker completed Patient is a former smoker [facility] Smoking 03/02/2020 01:49:39 PM EDT Ex-smoker (finding) complet ed Ex-smoker (finding) DANIEL (Virgilio Molina MD [facility]) Smoking 03/02/2020 01:40:47 PM EDT Ex-smoker (finding) complet ed Ex-smoker (finding) DANIEL (Virgilio Molina MD [facility]) Smoking 03/02/2020 01:04:49 PM EDT Ex-smoker (finding) complet ed Ex-smoker (finding) KIRKLIN (Virgilio Molina MD [facility]) Vital Signs ID Date Data Source UNK Name Value Range Interpretation Code Description Data Source(s) Body mass index (BMI) [Ratio] 30.0 kg/m2 30.0 k g/m2 [facility]) Body height 62 [in_i] 62 [in_i] [facility]) 5'2" Body weight 164.00 [lb_av] 164.00 [lb_av] MED[facility] T ([facility]) Body temperature 97.8 [degF] 97.8 [degF] [facility] Oxygen saturation in Arterial blood by Pulse oximetry 96 % 96 % [facility] ([facility], [facility]) Respiratory rate 16 /min 16 /min [facility] ( [facility], [facility]) Heart rate 68 /min 68 /min [facility] ([facility], [facility]) Diastolic blood pressure 80 mm[Hg] 80 mm[Hg] [facility] ([facility], [facility]) Systolic blood pressure 122 mm[Hg] 122 mm[Hg] [facility]) Body mass index (BMI) [Ratio] 30.0 kg/m2 30.0 k g/m2 [facility] ([facility], [facility]) Body height 62 [in_i] 62 [in_i] [facility] ([facility], [facility]) 5'2" Body weight 164.00 [lb_av] 164.00 [lb_av] MEDEN T ([facility], [facility]) Body temperature 97.9 [degF] 97.9 [degF] [facility] ([facility]) Oxygen saturation in Arterial blood by Pulse oximetry 96 % 96 % [facility] ([facility], [facility]) Respiratory rate 14 /min 14 /min [facility] ( [facility]) Heart rate 63 /min 63 /min [facility] ([facility]) Diastolic blood pressure 76 mm[Hg] 76 mm[Hg] [facility] ([facility], [facility]) Systolic blood pressure 114 mm[Hg] 114 mm[Hg] [facility]) Diastolic blood pressure--sitting 82 mm[Hg] 82 mm[Hg] [facility] ([facility]) Systolic blood pressure--sitting 130 mm[Hg] 130 mm[Hg] [facility] ([facility]) Heart rate 67 /min 67 /min [facility] Body mass index (BMI) [Ratio] 29.6 kg/m2 29.6 k g/m2 [facility] ([facility]) Body height 62 [in_i] 62 [in_i] [facility] 5'2" Body weight 162.00 [lb_av] 162.00 [lb_av] [facility] T ([facility]) Body mass index (BMI) [Ratio] 30.0 kg/m2 30.0 k g/m2 [facility] ([facility], [facility]) Body height 62 [in_i] 62 [in_i] [facility] ([facility], [facility]) 5'2" Body weight 164.00 [lb_av] 164.00 [lb_av] MEDEN T ([facility], [facility]) Body temperature 98.8 [degF] 98.8 [degF] [facility] ([facility], [facility]) Oxygen saturation in Arterial blood by Pulse oximetry 97 % 97 % [facility] ([facility], [facility]) Respiratory rate 12 /min 12 /min [facility] ( [facility], [facility]) Heart rate 89 /min 89 /min [facility] ([facility], [facility]) Diastolic blood pressure 79 mm[Hg] 79 mm[Hg] [facility] ([facility]) Systolic blood pressure 161 mm[Hg] 161 mm[Hg] M [facility] ([facility], [facility]) Patient Treatment Plan of Care Planned Activity Planned Date Details Description Data Source (s) latanoprost 0.05 MG/ML Ophthalmic Solution 07/09/2019 12:00:00 AM E [facility] (Virgilio Molina MD [facility]) latanoprost 0.05 MG/ML Ophthalmic Solution 10/22/2017 12:00:00 AM E [facility] (Virgilio Molina MD [facility])
[2020-07-03 04:50] VITALS: BP 113/67
[2020-07-03] MEDS: NS 1,000 ML IV SCH ×4 (05:34→18:32)
[2020-07-03] MEDS: ONDANSETRON 4 MG TAB PO SCH ×4 (05:44→23:03)
[2020-07-03] MEDS ORDERED: ONDANSETRON 4 MG TAB PO SCH (05:45)
[2020-07-03 06:02] VITALS: BP_SYST 129; BP_SYST 130; BP_SYST 131; BP_DIAS 68; BP_DIAS 70
[2020-07-03] MEDS: ENOXAPARIN 40MG/0.4ML SYRINGE (J1650 PER 10MG) SC SCH (08:25)
[2020-07-03] MEDS: FLUTICASONE PROP 0.05% NASAL SPRAY 16 GM (FLONASE) SCH (08:25)
[2020-07-03] MEDS: SERTRALINE HCL 50 MG TAB PO SCH (08:25)
[2020-07-03] MEDS: SITagliptin 50 MG TAB (JANUVIA) PO SCH (08:25)
[2020-07-03] MEDS: OMEPRAZOLE 20 MG CAP PO SCH (08:25)
[2020-07-03] MEDS: HumaLOG INSULIN (NovoLOG) PER UNIT SC SCH ×3 (08:26→16:51)
[2020-07-03] MEDS: NEBIVOLOL 5 MG TAB (BYSTOLIC) PO SCH (08:28)
--- NOTE | 2020-07-03 09:13 | ECGEPIP ---
[facility] - ED Test Date: 2020-07-02 Pat Name: DONNIE ROLLINS Department: Room: [place] [address] Gender: Female Quill Layer: amanda : 1940 Requested By: LEX ERIC Order Number: [id number] Reading MD: Cara Warren Measurements Intervals [place] Rate: 77 P: 6 AK: 151 QRS: 16 QRSD: 93 T: 9 QT: 375 QTc: 425 Interpretive Statements SINUS RHYTHM NONSPECIFIC ST & T-WAVE ABNORMALITY INCREASED RATE 08/25/19 Electronically Signed on 07-03-2020 9:13:02 EST by Cara Warren
--- NOTE | 2020-07-03 11:12 | REP ---
INDICATION: Unilateral swelling in left leg COMPARISON: None. TECHNIQUE: Real time compression and duplex Doppler interrogation of the left lower extremity deep venous system is performed. FINDINGS: The left common femoral, superficial femoral and popliteal veins are fully compressible with transducer pressure and demonstrate normal spontaneous and phasic flow, without evidence of deep venous thrombosis. IMPRESSION: No evidence of deep venous thrombosis of the left lower extremity femoral popliteal venous system. <Electronically signed by Elio Long > 07/03/20 1105
[2020-07-03 14:00] VITALS: BP 105/56
--- NOTE | 2020-07-03 20:33 | IPNPDOC ---
Subjective Date Seen The patient was seen on 07/03/20. Subjective Chief Complaint/HPI Ms. Luther is a 79 year old female here with syncope and UTI. This morning, she denies any chest pain or dyspnea. Her abdominal discomfort improved after being off of the Bactrim. She had not made urine this morning, and is unsure if she has any dysuria. Objective Physical Examination General Exam: Positive: Alert, Cooperative (laying comfortably on the ER stretcher when I entered the room), No Acute Distress Eye Exam: Positive: PERRLA, Conjunctiva & lids normal; Negative: Sclera icteric ENT Exam: Positive: Atraumatic, Pharynx Normal; Negative: Mucous membr. moist/pink (mild dryness to the membranes) Neck Exam: Negative: Supple, Lymphadenopathy Chest Exam: Positive: Clear to auscultation, Normal air movement Heart Exam: Positive: Rate Normal, Regular Rhythm, Normal S1, Normal S2; Negative: Gallops, Murmurs, Rubs Abdomen Exam: Positive: Normal bowel sounds, Soft, Tenderness (mild generalized tenderness to the abdomen); Negative: Other (point or rebound tenderness) Extremity Exam: Negative: Edema Skin Exam: Positive: Nl turgor and temperature Neuro Exam: Positive: Normal Speech, Normal Tone Psych Exam: Positive: Mental status NL, Mood NL, Memory Intact Assessment /Plan Assessment Ms. Luther is a 79 year old female here with syncope and UTI. She has sulfa allergies and was put on Bactrim prior. She had nausea and abdominal discomfort while on Bactrim. Those symptoms resolved after coming off Bactrim. Otherwise on Ceftriaxone, pending urine culture results. Plan/VTE VTE Prophylaxis Ordered?: Yes Plan 1. UTI -On Ceftriaxone -Pending urine culture results 2. Syncope -May be secondary to UTI and dehydration -Telemetry 3. Diabetes -Sliding scale insulin -Carbohydrate consistent diet 4. Hypertension -Continue nebivolol and losartan 5. DVT ppx -Lovenox VS, I&O, 24H, Fishbone Vital Signs/I&O Vital Signs Date Time Temp Pulse Resp B/P (MAP) Pulse Ox O2 Delivery O2 Flow Rate FiO2 07/03/20 14:00 97.6 68 19 105/56 (72) 91 Nasal Cannula 2.0 I&O- Last 24 Hours up to 6 AM 07/03/20 06:00 Intake Total 2050 ml Balance 2050 ml Laboratory Data 24H LABS Laboratory Tests 2 07/02/20 21:45: Coronavirus (COVID-19)(PCR) NEGATIVE, Influenza Type A (RT-PCR) NEGATIVE, Influenza Type B (RT-PCR) NEGATIVE, Respiratory Syncytial Virus (PCR) NEGATIVE 07/02/20 21:46: Prothrombin Time 13.4, Prothromb Time International Ratio 1.00, Anion Gap 11, Glomerular Filtration Rate 45.5, Calcium Level 8.5L, Magnesium Level 1.7L, Total Creatine Kinase 68, Creatine Kinase MB < 1.0, Creatine Kinase MB Relative Index 1.47, Troponin I < 0.02, Thyroid Stimulating Hormone (TSH) 2.660, Ethyl Alcohol Level < 0.003 07/02/20 21:47: Immature Granulocyte % (Auto) 0.7, Neutrophils (%) (Auto) 90.9H, Lymphocytes (%) (Auto) 4.1L, Monocytes (%) (Auto) 1.6, Eosinophils (%) (Auto) 2.6, Basophils (%) (Auto) 0.1, Neutrophils # (Auto) 15.3H, Lymphocytes # (Auto) 0.7L, Monocytes # (Auto) 0.3, Eosinophils # (Auto) 0.4, Basophils # (Auto) 0.0, Nucleated Red Blood Cells % (auto) 0.0 07/02/20 23:49: Urine Color TASHIA, Urine Appearance CLEAR, Urine pH 5.0, Urine Specific [place] 1.016, Urine Protein 1+H, Urine Glucose (UA) 1+H, Urine Ketones NEGATIVE, Urine Blood NEGATIVE, Urine Nitrite POSITIVEH, Urine Bilirubin NEGATIVE, Urine Urobilinogen 4.0H, Urine Leukocyte Esterase NEGATIVE, Urine WBC (Auto) 9H, Urine RBC (Auto) 2, Urine Hyaline Casts (Auto) 0, Urine Bacteria (Auto) 1+H, Urine Squamous Epithelial Cells 1, Urine Transitional Epithelial Cells 1, Urine Mucus (Auto) SMALL, Urine Sperm (Auto) , Urine Opiates Screen NEGATIVE, Urine Methadone Screen NEGATIVE, Urine Barbiturates Screen NEGATIVE, Urine Phencyclidine Screen NEGATIVE, Urine Amphetamines Screen NEGATIVE, Urine Benzodiazepines Screen NEGATIVE, Urine Cocaine Metabolite Screen NEGATIVE, Urine Cannabinoids Screen NEGATIVE 07/03/20 03:19: Bedside Glucose (Misc Panel) 116H 07/03/20 04:59: Bedside Glucose (Misc Panel) 145H 07/03/20 11:30: Bedside Glucose (Misc Panel) 94 07/03/20 16:37: Bedside Glucose (Misc Panel) 94 CBC/BMP Laboratory Tests 07/02/20 21:46 07/02/20 21:47 Microbiology Microbiology 07/02/20 Urine Culture, Received Pending MARGARET HOFFMAN DO Jul 03, 2020 20:33
[2020-07-03] MEDS ORDERED: HumaLOG INSULIN (NovoLOG) PER UNIT SC SCH (21:00)
[2020-07-03] MEDS ORDERED: ROSUVASTATIN 10 MG TAB (CRESTOR) PO SCH (21:00)
[2020-07-03] MEDS: LOSARTAN 50MG TABLET PO SCH ×2 (21:00→21:03)
[2020-07-03 22:00] VITALS: BP 116/59
[2020-07-04] MEDS ORDERED: cefTRIAXone SOD 1 GM in D5W MINI-BAG PLUS 50 ML IV SCH (01:00)
[2020-07-04] MEDS: NS 1,000 ML IV SCH (04:12)
[2020-07-04] MEDS: ONDANSETRON 4 MG TAB PO SCH ×2 (05:20→12:00)
[2020-07-04 05:25] VITALS: BP_SYST 129; BP_SYST 130; BP_SYST 131; BP_DIAS 66; BP_DIAS 68; BP_DIAS 70
[2020-07-04 06:00] VITALS: BP 130/66
[2020-07-04] MEDS: HumaLOG INSULIN (NovoLOG) PER UNIT SC SCH ×2 (07:30→12:00)
[2020-07-04 08:24] LABS: BASO % 0.3 % (0.0-1.0); EOS % 10.9 % (0.0-3.0); HEMOGLOBIN 12.1 g/dl (12.0-15.5); LYMPH # 2.9 10^3/uL (1.5-5.0); LYMPH % 32.1 % (24.0-44.0); MEAN CORPUSCULAR HEMOGLOBIN 30.6 pg (27.0-33.0); MEAN CORPUSCULAR HGB CONC 31.8 g/dl (32.0-36.5); MEAN CORPUSCULAR VOLUME 96.2 fl (80.0-96.0); MONO # 0.5 10^3/uL (0.0-0.8); MONO % 5.7 % (0.0-5.0); NEUTROPHILS # 4.5 10^3/uL (1.5-8.5); NEUTROPHILS % 50.7 % (36.0-66.0); PLATELET COUNT, AUTOMATED 206 10^3/uL (150-450); RED BLOOD COUNT 3.95 10^6/uL (4.00-5.40); WHITE BLOOD COUNT 8.9 10^3/uL (4.0-10.0)
[2020-07-04] MEDS: OMEPRAZOLE 20 MG CAP PO SCH (08:25)
[2020-07-04] MEDS: SITagliptin 50 MG TAB (JANUVIA) PO SCH (08:25)
[2020-07-04 08:26] VITALS: BP 125/67
[2020-07-04] MEDS: NEBIVOLOL 5 MG TAB (BYSTOLIC) PO SCH (08:26)
[2020-07-04] MEDS: FLUTICASONE PROP 0.05% NASAL SPRAY 16 GM (FLONASE) SCH (08:27)
[2020-07-04] MEDS: SERTRALINE HCL 50 MG TAB PO SCH (08:29)
[2020-07-04] MEDS: ENOXAPARIN 40MG/0.4ML SYRINGE (J1650 PER 10MG) SC SCH (08:31)
[2020-07-04 08:45] LABS: BLOOD UREA NITROGEN 10 MG/DL (7-18); CALCIUM LEVEL 8.4 MG/DL (8.8-10.2); CARBON DIOXIDE LEVEL 24 MEQ/L (21-32); CHLORIDE LEVEL 113 MEQ/L (98-107); CREATININE FOR GFR 0.92 MG/DL (0.55-1.30); GLOMERULAR FILTRATION RATE > 60.0 (>39); GLUCOSE, FASTING 88 MG/DL (70-100); POTASSIUM SERUM 4.3 MEQ/L (3.5-5.1); SODIUM LEVEL 143 MEQ/L (136-145)
[2020-07-04] MEDS ORDERED: SODIUM CHLORIDE NASAL 0.65% SPRAY BTL (OCEAN) SCH (09:00)
[2020-07-04] MEDS ORDERED: CIPR-250 PO (12:07)
--- NOTE | 2020-07-04 19:40 | DS.PDOC ---
Discharge Summary General Date of Admission Jul 03, 2020 at 02:35 Date of Discharge 07/04/20 Discharge Summary PROCEDURES PERFORMED DURING STAY: [None]. ADMITTING DIAGNOSES: UTI Syncope Diabetes Hypertension DISCHARGE DIAGNOSES: UTI Syncope Diabetes Hypertension COMPLICATIONS/CHIEF COMPLAINT: Syncope,UTI. HISTORY OF PRESENT ILLNESS: Patient is a 79 year old female here with syncope and UTI. She has sulfa allergies and was put on Bactrim prior. She had nausea and abdominal discomfort while on Bactrim. Those symptoms resolved after coming off Bactrim. Otherwise on Ceftriaxone, pending urine culture results. HOSPITAL COURSE: During hospital stay following issues addressed DISCHARGE MEDICATIONS: Please see below. ALLERGIES: Please see below. PHYSICAL EXAMINATION ON DISCHARGE: VITAL SIGNS: Please see below. Physical Examination General Exam: Positive: Alert, Cooperative (laying comfortably on the ER st retcher when I entered the room), No Acute Distress Eye Exam: Positive: PERRLA, Conjunctiva & lids normal; Negative: Sclera icteric ENT Exam: Positive: Atraumatic, Pharynx Normal; Negative: Mucous membr. moist/pink (mild dryness to the membranes) Neck Exam: Negative: Supple, Lymphadenopathy Chest Exam: Positive: Clear to auscultation, Normal air movement Heart Exam: Positive: Rate Normal, Regular Rhythm, Normal S1, Normal S2; Negative: Gallops, Murmurs, Rubs Abdomen Exam: Positive: Normal bowel sounds, Soft, Tenderness (mild generalized tenderness to the abdomen); Negative: Other (point or rebound tenderness) Extremity Exam: Negative: Edema Skin Exam: Positive: Nl turgor and temperature Neuro Exam: Positive: Normal Speech, Normal Tone Psych Exam: Positive: Mental status NL, Mood NL, Memory Intact LABORATORY DATA: Please see below. PROGNOSIS: Fair ACTIVITY: [As tolerated]. DIET: Regular DISPOSITION: 01 Home, Self-Care. ITEMS TO FOLLOWUP ON ON OUTPATIENT: With PCP DISCHARGE CONDITION: [Stable]. TIME SPENT ON DISCHARGE: Greater than 20 minutes. Vital Signs/I&Os Vital Signs Date Time Temp Pulse Resp B/P (MAP) Pulse Ox O2 Delivery O2 Flow Rate FiO2 07/04/20 08:26 71 125/67 07/04/20 06:00 97.0 18 94 Nasal Cannula 2.0 I&O- Last 24 Hours up to 6 AM 07/04/20 06:00 Intake Total 3480 ml Output Total 1850 ml Balance 1630 ml Laboratory Data Labs 24H Laboratory Tests 2 07/03/20 20:26: Bedside Glucose (Misc Panel) 107 07/04/20 07:38: Immature Granulocyte % (Auto) 0.3, Neutrophils (%) (Auto) 50.7, Lymphocytes (%) (Auto) 32.1, Monocytes (%) (Auto) 5.7H, Eosinophils (%) (Auto) 10.9H, Basophils (%) (Auto) 0.3, Neutrophils # (Auto) 4.5, Lymphocytes # (Auto) 2.9, Monocytes # (Auto) 0.5, Eosinophils # (Auto) 1.0H, Basophils # (Auto) 0.0, Nucleated Red Blood Cells % (auto) 0.0, Anion Gap 6L, Glomerular Filtration Rate > 60.0, Calcium Level 8.4L 07/04/20 07:51: Bedside Glucose (Misc Panel) 84 07/04/20 11:27: Bedside Glucose (Misc Panel) 104 CBC/BMP Laboratory Tests 07/04/20 07:38 FSBS Laboratory Tests Test 07/03/20 20:26 07/04/20 07:51 07/04/20 11:27 Range/Units Bedside Glucose (Misc Panel) 107 84 104 83-110 MG/DL Microbiology Microbiology 07/02/20 Urine Culture, Received Pending Discharge Medications Scheduled Ciprofloxacin HCl (Cipro) 250 Mg Tablet, 250 MG PO BID Ergocalciferol (Vitamin D2) (Vitamin D2) 50,000 Units Cap, 50,000 MG PO QMONTH, (Reported) Fluticasone Propionate (Fluticasone Propionate) 16 Gm [place].susp, 2 SPRAYS NA DAILY, (Reported) Losartan Potassium (Losartan Potassium) 50 Mg Tablet, 50 MG PO QHS, (Reported) Nebivolol HCl (Bystolic) 5 Mg Tab, 10 MG PO DAILY, (Reported) Omeprazole (Omeprazole) 20 Mg Capsule.dr, 20 MG PO DAILY, (Reported) Phenazopyridine HCl (Azo Urinary Pain Relief) 95 Mg Tablet, 95 MG PO TID, (Reported) Rosuvastatin Calcium (Rosuvastatin Calcium) 5 Mg Tab, 5 MG PO QHS, (Reported) Sertraline HCl (Sertraline HCl) 50 Mg Tab, 25 MG PO DAILY, (Reported) Sitagliptin Phosphate (Januvia) 100 Mg Tab, 100 MG PO DAILY, (Reported) Allergies Coded Allergies: Sulfa (Sulfonamide Antibiotics) (Verified Allergy, Unknown, 08/24/19) LATOSHA HAMILTON DO Jul 04, 2020 19:40
[2020-07-14] MEDS ORDERED: VITAMIN D 50,000 UNITS CAPSULE (ERGOCALCIFEROL 1.25MG) PO SCH (09:00)
== END 2020-07-04 14:20 | disposition home or self-care (01) | DRG 690 ==
LOC: M ED 20:57 → M ED INP 07-03 02:35 → M MSPAV 07-03 04:49
PROVIDERS: ADMIT Family Medicine; ATTEND Internal Medicine
DX: N39.0 Urinary tract infection, site not specified (principal); R55 Syncope and collapse; E11.9 Type 2 diabetes mellitus without complications; I10 Essential (primary) hypertension; R11.2 Nausea with vomiting, unspecified; E86.0 Dehydration; Z79.899 Other long term (current) drug therapy; Z88.2 Allergy status to sulfonamides

== ENCOUNTER → 2020-10-16 | Outpatient (CLI) | payer MEDICARE ==
[~2020-10-16] MED LIST changes: +AZO-95TA3 PO; +CIPR-250 PO; +MED REC COMMENT; +NITR-67 PO
[2020-10-16 11:53] LABS: BASO # 0.1 10^3/uL (0.0-0.2); BASO % 1.2 % (0.0-1.0); EOS # 0.2 10^3/uL (0.0-0.5); EOS % 2.7 % (0.0-3.0); HEMATOCRIT 41.9 % (36.0-47.0); HEMOGLOBIN 13.7 g/dl (12.0-15.5); LYMPH # 3.6 10^3/uL (1.5-5.0); LYMPH % 45.7 % (24.0-44.0); MEAN CORPUSCULAR HEMOGLOBIN 31.3 pg (27.0-33.0); MEAN CORPUSCULAR HGB CONC 32.7 g/dl (32.0-36.5); MEAN CORPUSCULAR VOLUME 95.7 fl (80.0-96.0); MONO # 0.7 10^3/uL (0.0-0.8); NEUTROPHILS # 3.2 10^3/uL (1.5-8.5); NEUTROPHILS % 41.3 % (36.0-66.0); PLATELET COUNT, AUTOMATED 232 10^3/uL (150-450); RED BLOOD COUNT 4.38 10^6/uL (4.00-5.40); WHITE BLOOD COUNT 7.8 10^3/uL (4.0-10.0)
[2020-10-16 15:32] LABS: ALBUMIN 3.6 GM/DL (3.2-5.2); BILIRUBIN,TOTAL 0.8 MG/DL (0.2-1.0); CALCIUM LEVEL 9.4 MG/DL (8.8-10.2); CHOLESTEROL RISK RATIO 2.5 (<5); CREATININE FOR GFR 1.07 MG/DL (0.55-1.30); FREE T4 0.95 NG/DL (0.76-1.46); GLOMERULAR FILTRATION RATE 52.8 (>39); POTASSIUM SERUM 4.1 MEQ/L (3.5-5.1); THYROID STIMULATING HORMONE 2.48 uIU/ML (0.358-3.740); TOTAL PROTEIN 6.6 GM/DL (6.4-8.2)
[2020-10-16 17:43] LABS: HEMOGLOBIN A1c 5.5 %
== END ==
LOC: M WUC 09:49
PROVIDERS: ATTEND Physician Assistant Medical
DX: R53.83 Other fatigue (principal); I10 Essential (primary) hypertension; E78.2 Mixed hyperlipidemia; E11.9 Type 2 diabetes mellitus without complications

== ENCOUNTER → 2021-04-24 | Outpatient (CLI) | payer MEDICARE ==
[~2021-04-24] MED LIST changes: +ERGO500029 PO; -VITA50005 PO
[2021-04-24 14:06] LABS: BASO # 0.1 10^3/uL (0.0-0.2); BASO % 1.1 % (0.0-1.0); EOS # 0.2 10^3/uL (0.0-0.5); EOS % 2.9 % (0.0-3.0); HEMATOCRIT 40.3 % (36.0-47.0); LYMPH # 3.4 10^3/uL (1.5-5.0); LYMPH % 41.4 % (24.0-44.0); MEAN CORPUSCULAR HEMOGLOBIN 31.9 pg (27.0-33.0); MEAN CORPUSCULAR HGB CONC 32.3 g/dl (32.0-36.5); MONO # 0.6 10^3/uL (0.0-0.8); MONO % 7.2 % (2.0-8.0); NEUTROPHILS # 3.9 10^3/uL (1.5-8.5); NEUTROPHILS % 47.2 % (36.0-66.0); PLATELET COUNT, AUTOMATED 229 10^3/uL (150-450); RED BLOOD COUNT 4.07 10^6/uL (4.00-5.40); WHITE BLOOD COUNT 8.2 10^3/uL (4.0-10.0)
[2021-04-24 14:56] LABS: CREATININE FOR GFR 1.14 MG/DL (0.55-1.30); GLOMERULAR FILTRATION RATE 49.1 (>39); POTASSIUM SERUM 4.1 MEQ/L (3.5-5.1)
[2021-04-24 14:57] LABS: ALBUMIN 3.2 GM/DL (3.2-5.2); BILIRUBIN,TOTAL 0.6 MG/DL (0.2-1.0); CHOLESTEROL RISK RATIO 2.712 (<5); FREE T4 1.09 NG/DL (0.76-1.46); THYROID STIMULATING HORMONE 2.35 uIU/ML (0.358-3.740); TOTAL 25(OH) VITAMIN D 71.4 NG/ML (30.0-100.0); TOTAL PROTEIN 6.6 GM/DL (6.4-8.2)
[2021-04-24 19:46] LABS: HEMOGLOBIN A1c 5.7 %
== END ==
LOC: M WUC 10:02
PROVIDERS: ATTEND Physician Assistant Medical
DX: R53.83 Other fatigue (principal); I10 Essential (primary) hypertension; E78.2 Mixed hyperlipidemia; R73.03 Prediabetes; E55.9 Vitamin D deficiency, unspecified; D64.9 Anemia, unspecified; Z79.899 Other long term (current) drug therapy

== ENCOUNTER → 2021-05-18 | Outpatient (CLI) | payer MEDICARE ==
[~2021-05-18] MED LIST changes: +ISOVUE-300 61% 50ML VIAL As Ordered ONE; +LIDOCAINE 1% MDV 20ML VIAL As Ordered ONE; +methylPREDNISolone SUSP 40MG/ML 1ML VIAL (DEPO MEDROL) As Ordered ONE
--- NOTE | 2021-05-18 17:40 | REP ---
INDICATION: OSTEOARTHRITIS RT HIP. COMPARISON: None TECHNIQUE: The procedure was performed by JC Gutiérrez, under the direct supervision of Dr. Long. The benefits and risks of the procedure were explained to the patient, and an informed consent was obtained. Directly prior to the start of the procedure, a formal time-out was completed in the procedure room. The right hip joint space was localized using fluoroscopic guidance. The skin was prepped and draped in a sterile fashion. Approximately 5 mL of 1% Lidocaine 10 mg/ml was used as a local anesthetic. Using fluoroscopic guidance, a #22 gauge spinal needle was inserted and advanced into the right hip joint space. Approximately 2 mL of Isovue 300 was injected to verify placement. Five mL of a solution containing 3 mL 1% lidocaine 10 mg/ml and 2 mL Depo-Medrol 40 mg/mL was injected into the joint space. The needle was removed and hemostasis was achieved. FINDINGS: The patient tolerated the procedure well and there were no immediate complications. IMPRESSION: 1. Technically successful right hip injection. 0.1 minutes of fluoroscopy time was utilized for this procedure. Some fluoroscopic images are performed with last image hold technology. These images require no additional radiation. <Electronically signed by Felipa Parker > 05/18/21 [id number] <Electronically signed by Elio Long > 05/18/21 [id number]
== END ==
LOC: M RADPRO 13:29
PROVIDERS: ATTEND Physician Assistant Surgical
DX: M16.11 Unilateral primary osteoarthritis, right hip (principal)
CPT/HCPCS: 20610; 77002; J1030; Q9967

== ENCOUNTER → 2021-08-22 | Outpatient (CLI) | payer MEDICARE ==
[~2021-08-22] MED LIST changes: -ISOVUE-300 61% 50ML VIAL As Ordered ONE; -LIDOCAINE 1% MDV 20ML VIAL As Ordered ONE; +LOSA50TA28 PO; -LOSA50TA88 PO; +OMEP-173 PO; -OMEP-218 PO; -methylPREDNISolone SUSP 40MG/ML 1ML VIAL (DEPO MEDROL) As Ordered ONE
== END ==
LOC: M WHC 13:47
PROVIDERS: ATTEND Physician Assistant
DX: Z13.820 Encounter for screening for osteoporosis (principal); M85.851 Other specified disorders of bone density and structure, right thigh; M85.852 Other specified disorders of bone density and structure, left thigh

== ENCOUNTER → 2021-11-05 | Outpatient (CLI) | payer MEDICARE ==
[2021-11-05 13:05] LABS: BASO # 0.1 10^3/uL (0.0-0.2); EOS # 0.3 10^3/uL (0.0-0.5); EOS % 3.4 % (0.0-3.0); HEMOGLOBIN 13.7 g/dl (12.0-15.5); LYMPH # 4.7 10^3/uL (1.5-5.0); LYMPH % 52.6 % (24.0-44.0); MEAN CORPUSCULAR HEMOGLOBIN 31.4 pg (27.0-33.0); MEAN CORPUSCULAR HGB CONC 31.9 g/dl (32.0-36.5); MEAN CORPUSCULAR VOLUME 98.6 fl (80.0-96.0); MONO # 0.7 10^3/uL (0.0-0.8); MONO % 7.8 % (2.0-8.0); NEUTROPHILS # 3.1 10^3/uL (1.5-8.5); PLATELET COUNT, AUTOMATED 248 10^3/uL (150-450); RED BLOOD COUNT 4.36 10^6/uL (4.00-5.40); WHITE BLOOD COUNT 8.9 10^3/uL (4.0-10.0)
[2021-11-05 13:44] LABS: ALBUMIN 3.4 GM/DL (3.2-5.2); BILIRUBIN,TOTAL 0.8 MG/DL (0.2-1.0); CHOLESTEROL RISK RATIO 2.31 (<5); CREATININE FOR GFR 1.15 MG/DL (0.55-1.30); FREE T4 0.92 NG/DL (0.76-1.46); GLOMERULAR FILTRATION RATE 48.5 (>39); THYROID STIMULATING HORMONE 2.73 uIU/ML (0.358-3.740); TOTAL PROTEIN 6.6 GM/DL (6.4-8.2)
== END ==
LOC: M WUC 09:40
PROVIDERS: ATTEND Physician Assistant
DX: I10 Essential (primary) hypertension (principal); K21.9 Gastro-esophageal reflux disease without esophagitis; E78.5 Hyperlipidemia, unspecified; R63.5 Abnormal weight gain; E55.9 Vitamin D deficiency, unspecified

== ENCOUNTER 2022-08-07 15:32 | Inpatient (IN) | payer MEDICARE ==
[~2022-08-07] VITALS: Ht 152.4 cm; Wt 69.8 kg
[2022-08-07 16:43] LABS: BASO # 0.1 10^3/uL (0.0-0.2); BASO % 0.5 % (0.0-1.0); EOS # 0.1 10^3/uL (0.0-0.5); EOS % 0.9 % (0.0-3.0); HEMATOCRIT 39.3 % (36.0-47.0); HEMOGLOBIN 12.8 g/dl (12.0-15.5); MEAN CORPUSCULAR HEMOGLOBIN 31.4 pg (27.0-33.0); MEAN CORPUSCULAR HGB CONC 32.6 g/dl (32.0-36.5); MEAN CORPUSCULAR VOLUME 96.6 fl (80.0-96.0); MONO % 7.6 % (2.0-8.0); NEUTROPHILS # 9.9 10^3/uL (1.5-8.5); NEUTROPHILS % 75.5 % (36.0-66.0); PLATELET COUNT, AUTOMATED 277 10^3/uL (150-450); RED BLOOD COUNT 4.07 10^6/uL (4.00-5.40); WHITE BLOOD COUNT 13.1 10^3/uL (4.0-10.0)
[2022-08-07 17:14] LABS: ALBUMIN 2.9 G/DL (3.2-5.2); ALKALINE PHOSPHATASE 81 U/L (46-116); CARBON DIOXIDE LEVEL 26 MMOL/L (20-31); CHLORIDE LEVEL 105 MMOL/L (98-107); SODIUM LEVEL 138 MMOL/L (136-145)
[2022-08-07 17:16] LABS: LIPASE 26 U/L (12-53)
[2022-08-07] MEDS ORDERED: NS 1,000 ML IV ONE (17:25)
[2022-08-07] MEDS ORDERED: KETOROLAC 30 MG/ML 1ML VIAL IV ONE (17:25)
[2022-08-07 18:25] LABS: ALT/SGPT 12 U/L (7.0-40); AST/SGOT 21 U/L (<34); BILIRUBIN,DIRECT 0.2 MG/DL (<0.4); BILIRUBIN,TOTAL 0.9 MG/DL (0.3-1.2); BLOOD UREA NITROGEN 12 MG/DL (9-23); CALCIUM LEVEL 9.2 MG/DL (8.3-10.6); CREATININE FOR GFR 0.91 MG/DL (0.55-1.30); GLOMERULAR FILTRATION RATE > 60.0 (>39); GLUCOSE, FASTING 114 MG/DL (74-106); TOTAL PROTEIN 6.1 G/DL (5.7-8.2)
[2022-08-07] MEDS ORDERED: ISOVUE-370 76% 100ML VIAL As Ordered ONE (19:10)
[2022-08-07] MEDS ORDERED: PIPERACILLIN/TAZOBACTAM SOD 3.375 GM in D5W MINI-BAG PLUS 50 ML IV ONE (20:55)
[2022-08-07] MEDS ORDERED: DEXTROSE 50% 50ML SYRINGE IV PRN (21:10)
[2022-08-07] MEDS ORDERED: GLUCOSE 4GM CHEW TABLET PO PRN (21:10)
[2022-08-07] MEDS ORDERED: GLUCAGON INJ 1MG VIAL SC PRN (21:10)
[2022-08-07] MEDS: ACETAMINOPHEN TAB 650MG DOSE (2X325MG) PO PRN (22:08)
[2022-08-07] MEDS: ONDANSETRON 4MG 2ML VIAL IV PRN (22:09)
[2022-08-07] MEDS: MORPHINE 2 MG/ML 1ML VIAL IV PRN (22:09)
[2022-08-07] MEDS ORDERED: D5W/0.9% SODIUM CHLORIDE 1,000 ML IV SCH (22:25)
[2022-08-07] MEDS ORDERED: XALA0.007 OU (22:47)
[2022-08-07] MEDS ORDERED: IBUP-1720 PO (22:47)
[2022-08-07] MEDS ORDERED: AZEL0.055 (22:47)
[2022-08-07] MEDS ORDERED: C 50TAB PO (22:47)
[2022-08-07] MEDS ORDERED: NEBI10TA PO (22:47)
[2022-08-07] MEDS ORDERED: NITR4TASL SL (22:47)
[2022-08-07] MEDS ORDERED: VITA500T40 PO (22:47)
[2022-08-07] MEDS ORDERED: VITA-148 PO (22:47)
[2022-08-07] MEDS ORDERED: HOME MED LIST COMPLETE! XX SCH (22:50)
[2022-08-08 00:25] VITALS: BP 101/62
[2022-08-08] MEDS: PIPERACILLIN/TAZOBACTAM SOD 3.375 GM in D5W MINI-BAG PLUS 50 ML IV SCH ×4 (03:36→22:42)
[2022-08-08] MEDS: INSULIN LISPRO (NovoLOG) PER UNIT SC SCH ×5 (06:00→21:00)
[2022-08-08 06:07] VITALS: BP 100/62
[2022-08-08 06:35] LABS: HEMATOCRIT 35.2 % (36.0-47.0); HEMOGLOBIN 11.4 g/dl (12.0-15.5); MEAN CORPUSCULAR HEMOGLOBIN 31.8 pg (27.0-33.0); MEAN CORPUSCULAR HGB CONC 32.4 g/dl (32.0-36.5); MEAN CORPUSCULAR VOLUME 98.3 fl (80.0-96.0); PLATELET COUNT, AUTOMATED 233 10^3/uL (150-450); RED BLOOD COUNT 3.58 10^6/uL (4.00-5.40); WHITE BLOOD COUNT 10.1 10^3/uL (4.0-10.0)
[2022-08-08 07:06] LABS: HEMOGLOBIN A1c 5.5 % (4.0-6.0)
[2022-08-08 07:47] LABS: ALBUMIN 2.5 G/DL (3.2-5.2); BILIRUBIN,TOTAL 1.1 MG/DL (0.3-1.2); CALCIUM LEVEL 8.3 MG/DL (8.3-10.6); CREATININE FOR GFR 1.01 MG/DL (0.55-1.30); GLOMERULAR FILTRATION RATE 56.3 (>39); MAGNESIUM LEVEL 1.8 MG/DL (1.8-2.4); POTASSIUM SERUM 4.5 MMOL/L (3.5-5.1); TOTAL PROTEIN 5.4 G/DL (5.7-8.2)
[2022-08-08] MEDS: ENOXAPARIN 40MG/0.4ML SYRINGE (J1650 PER 10MG) SC SCH (09:18)
[2022-08-08] MEDS: ACETAMINOPHEN TAB 650MG DOSE (2X325MG) PO PRN (09:30)
[2022-08-08 14:00] VITALS: BP 96/55
[2022-08-08 20:48] VITALS: BP 110/60
[2022-08-08] MEDS: LOSARTAN 50MG TABLET PO SCH (21:00)
[2022-08-09] MEDS: PIPERACILLIN/TAZOBACTAM SOD 3.375 GM in D5W MINI-BAG PLUS 50 ML IV SCH ×4 (03:58→21:31)
[2022-08-09 05:57] VITALS: BP 108/64
[2022-08-09 06:09] LABS: HEMATOCRIT 35.4 % (36.0-47.0); HEMOGLOBIN 11.3 g/dl (12.0-15.5); MEAN CORPUSCULAR HGB CONC 31.9 g/dl (32.0-36.5); MEAN CORPUSCULAR VOLUME 97.3 fl (80.0-96.0); PLATELET COUNT, AUTOMATED 254 10^3/uL (150-450); RED BLOOD COUNT 3.64 10^6/uL (4.00-5.40)
[2022-08-09 06:38] LABS: ALBUMIN 2.4 G/DL (3.2-5.2); BILIRUBIN,TOTAL 0.9 MG/DL (0.3-1.2); CALCIUM LEVEL 8.1 MG/DL (8.3-10.6); CREATININE FOR GFR 1.1 MG/DL (0.55-1.30); TOTAL PROTEIN 5.2 G/DL (5.7-8.2)
[2022-08-09] MEDS: INSULIN LISPRO (NovoLOG) PER UNIT SC SCH ×4 (07:30→21:00)
[2022-08-09 08:00] VITALS: BP_SYST 118; BP_DIAS 60; BP_DIAS 66
[2022-08-09] MEDS: ENOXAPARIN 40MG/0.4ML SYRINGE (J1650 PER 10MG) SC SCH (10:15)
[2022-08-09] MEDS: NEBIVOLOL 5 MG TAB (BYSTOLIC) PO SCH (10:16)
[2022-08-09] MEDS: SERTRALINE HCL 50 MG TAB PO SCH (10:16)
[2022-08-09] MEDS: ACETAMINOPHEN TAB 650MG DOSE (2X325MG) PO PRN (13:04)
[2022-08-09 14:00] VITALS: BP 110/62
[2022-08-09 19:47] VITALS: BP 134/58
[2022-08-09] MEDS: LATANOPROST 0.005% OPHTH SOLN 2.5 ML OU SCH (21:31)
[2022-08-09] MEDS: LOSARTAN 50MG TABLET PO SCH (21:32)
[2022-08-09] MEDS ORDERED: SIMETHICONE 80MG CHEW TAB PO ONE (23:05)
[2022-08-10] MEDS: PIPERACILLIN/TAZOBACTAM SOD 3.375 GM in D5W MINI-BAG PLUS 50 ML IV SCH ×4 (03:45→22:18)
[2022-08-10 06:15] VITALS: BP 126/56
[2022-08-10 06:46] LABS: HEMATOCRIT 34.7 % (36.0-47.0); HEMOGLOBIN 11.6 g/dl (12.0-15.5); MEAN CORPUSCULAR HEMOGLOBIN 31.8 pg (27.0-33.0); MEAN CORPUSCULAR HGB CONC 33.4 g/dl (32.0-36.5); MEAN CORPUSCULAR VOLUME 95.1 fl (80.0-96.0); PLATELET COUNT, AUTOMATED 257 10^3/uL (150-450); RED BLOOD COUNT 3.65 10^6/uL (4.00-5.40); WHITE BLOOD COUNT 13.1 10^3/uL (4.0-10.0)
[2022-08-10 07:10] LABS: ALBUMIN 2.5 G/DL (3.2-5.2); CALCIUM LEVEL 8.2 MG/DL (8.3-10.6); CREATININE FOR GFR 1.01 MG/DL (0.55-1.30); GLOMERULAR FILTRATION RATE 56.3 (>39); POTASSIUM SERUM 3.8 MMOL/L (3.5-5.1); TOTAL PROTEIN 5.5 G/DL (5.7-8.2)
[2022-08-10] MEDS: INSULIN LISPRO (NovoLOG) PER UNIT SC SCH ×4 (07:30→20:32)
[2022-08-10] MEDS: ENOXAPARIN 40MG/0.4ML SYRINGE (J1650 PER 10MG) SC SCH (09:35)
[2022-08-10] MEDS: SERTRALINE HCL 50 MG TAB PO SCH (09:35)
[2022-08-10] MEDS: NEBIVOLOL 5 MG TAB (BYSTOLIC) PO SCH (09:36)
[2022-08-10] MEDS ORDERED: SODIUM CHLORIDE NASAL 0.65% SPRAY BTL (OCEAN) PRN (10:50)
[2022-08-10 14:36] VITALS: BP 128/65
[2022-08-10 14:45] LABS: CLOSTRIDIUM DIFFICILE PCR NEGATIVE (NEGATIVE)
[2022-08-10] MEDS: LATANOPROST 0.005% OPHTH SOLN 2.5 ML OU SCH (20:25)
[2022-08-10] MEDS: LOSARTAN 50MG TABLET PO SCH (20:26)
[2022-08-10 22:00] VITALS: BP 136/59
[2022-08-11] MEDS: PIPERACILLIN/TAZOBACTAM SOD 3.375 GM in D5W MINI-BAG PLUS 50 ML IV SCH ×4 (04:29→21:27)
[2022-08-11 06:00] VITALS: BP 128/60
[2022-08-11 07:21] LABS: HEMATOCRIT 34.7 % (36.0-47.0); HEMOGLOBIN 11.6 g/dl (12.0-15.5); MEAN CORPUSCULAR HEMOGLOBIN 31.5 pg (27.0-33.0); MEAN CORPUSCULAR HGB CONC 33.4 g/dl (32.0-36.5); MEAN CORPUSCULAR VOLUME 94.3 fl (80.0-96.0); PLATELET COUNT, AUTOMATED 277 10^3/uL (150-450); RED BLOOD COUNT 3.68 10^6/uL (4.00-5.40); WHITE BLOOD COUNT 11.4 10^3/uL (4.0-10.0)
[2022-08-11] MEDS: INSULIN LISPRO (NovoLOG) PER UNIT SC SCH ×4 (07:30→21:00)
[2022-08-11 07:33] LABS: ALBUMIN 2.4 G/DL (3.2-5.2); ALKALINE PHOSPHATASE 85 U/L (46-116); ALT/SGPT 17 U/L (7.0-40); AST/SGOT 21 U/L (<34); BLOOD UREA NITROGEN 10 MG/DL (9-23); CALCIUM LEVEL 8.4 MG/DL (8.3-10.6); CARBON DIOXIDE LEVEL 25 MMOL/L (20-31); CHLORIDE LEVEL 106 MMOL/L (98-107); CREATININE FOR GFR 0.94 MG/DL (0.55-1.30); GLOMERULAR FILTRATION RATE > 60.0 (>39); GLUCOSE, FASTING 86 MG/DL (74-106); POTASSIUM SERUM 3.6 MMOL/L (3.5-5.1); SODIUM LEVEL 140 MMOL/L (136-145); TOTAL PROTEIN 5.5 G/DL (5.7-8.2)
[2022-08-11] MEDS: NEBIVOLOL 5 MG TAB (BYSTOLIC) PO SCH (09:03)
[2022-08-11] MEDS: SERTRALINE HCL 50 MG TAB PO SCH (09:03)
[2022-08-11] MEDS: ENOXAPARIN 40MG/0.4ML SYRINGE (J1650 PER 10MG) SC SCH (09:03)
[2022-08-11 14:00] VITALS: BP 130/59
[2022-08-11] MEDS: ACETAMINOPHEN TAB 650MG DOSE (2X325MG) PO PRN (21:22)
[2022-08-11 21:24] VITALS: BP 129/59
[2022-08-11] MEDS: LOSARTAN 50MG TABLET PO SCH (21:25)
[2022-08-11] MEDS: LATANOPROST 0.005% OPHTH SOLN 2.5 ML OU SCH (21:27)
[2022-08-12] MEDS: PIPERACILLIN/TAZOBACTAM SOD 3.375 GM in D5W MINI-BAG PLUS 50 ML IV SCH ×2 (03:25→09:54)
[2022-08-12 06:00] LABS: HEMATOCRIT 36.7 % (36.0-47.0); MEAN CORPUSCULAR HEMOGLOBIN 31.2 pg (27.0-33.0); MEAN CORPUSCULAR HGB CONC 32.7 g/dl (32.0-36.5); MEAN CORPUSCULAR VOLUME 95.3 fl (80.0-96.0); PLATELET COUNT, AUTOMATED 302 10^3/uL (150-450); RED BLOOD COUNT 3.85 10^6/uL (4.00-5.40); WHITE BLOOD COUNT 11.6 10^3/uL (4.0-10.0)
[2022-08-12 06:11] VITALS: BP 130/67
[2022-08-12 06:36] LABS: ALBUMIN 2.4 G/DL (3.2-5.2); ALKALINE PHOSPHATASE 81 U/L (46-116); ALT/SGPT 20 U/L (7.0-40); AST/SGOT 32 U/L (<34); BILIRUBIN,TOTAL 0.7 MG/DL (0.3-1.2); BLOOD UREA NITROGEN 10 MG/DL (9-23); CALCIUM LEVEL 8.5 MG/DL (8.3-10.6); CARBON DIOXIDE LEVEL 25 MMOL/L (20-31); CHLORIDE LEVEL 105 MMOL/L (98-107); CREATININE FOR GFR 0.93 MG/DL (0.55-1.30); GLOMERULAR FILTRATION RATE > 60.0 (>39); GLUCOSE, FASTING 95 MG/DL (74-106); POTASSIUM SERUM 3.8 MMOL/L (3.5-5.1); SODIUM LEVEL 141 MMOL/L (136-145); TOTAL PROTEIN 5.6 G/DL (5.7-8.2)
[2022-08-12] MEDS: INSULIN LISPRO (NovoLOG) PER UNIT SC SCH ×4 (07:29→20:21)
[2022-08-12] MEDS: ACETAMINOPHEN TAB 650MG DOSE (2X325MG) PO PRN ×2 (09:49→20:21)
[2022-08-12] MEDS: SERTRALINE HCL 50 MG TAB PO SCH (09:50)
[2022-08-12] MEDS: NEBIVOLOL 5 MG TAB (BYSTOLIC) PO SCH (09:50)
[2022-08-12] MEDS: ENOXAPARIN 40MG/0.4ML SYRINGE (J1650 PER 10MG) SC SCH (09:51)
[2022-08-12] MEDS: GASTROGRAFIN SOLUTION 30ML PO SCH ×2 (11:11→11:43)
[2022-08-12] MEDS ORDERED: ISOVUE-370 76% 100ML VIAL As Ordered ONE (13:05)
[2022-08-12 14:00] VITALS: BP 130/67
[2022-08-12] MEDS: CIPROFLOXACIN 400 MG in IV 1 EA IV SCH (16:19)
[2022-08-12] MEDS: metroNIDAZOLE 500 MG in IV 1 EA IV SCH (17:38)
[2022-08-12 20:17] VITALS: BP 132/66
[2022-08-12] MEDS: LOSARTAN 50MG TABLET PO SCH (20:21)
[2022-08-12] MEDS: LATANOPROST 0.005% OPHTH SOLN 2.5 ML OU SCH (20:22)
[2022-08-13] MEDS: metroNIDAZOLE 500 MG in IV 1 EA IV SCH ×3 (01:14→19:39)
[2022-08-13] MEDS: CIPROFLOXACIN 400 MG in IV 1 EA IV SCH ×2 (03:27→17:04)
[2022-08-13 05:59] VITALS: BP 127/61
[2022-08-13 07:10] LABS: HEMATOCRIT 34.2 % (36.0-47.0); HEMOGLOBIN 11.4 g/dl (12.0-15.5); MEAN CORPUSCULAR HEMOGLOBIN 31.2 pg (27.0-33.0); MEAN CORPUSCULAR HGB CONC 33.3 g/dl (32.0-36.5); MEAN CORPUSCULAR VOLUME 93.7 fl (80.0-96.0); PLATELET COUNT, AUTOMATED 301 10^3/uL (150-450); RED BLOOD COUNT 3.65 10^6/uL (4.00-5.40); WHITE BLOOD COUNT 11.4 10^3/uL (4.0-10.0)
[2022-08-13 07:30] VITALS: BP 121/57
[2022-08-13] MEDS: INSULIN LISPRO (NovoLOG) PER UNIT SC SCH ×4 (07:30→21:00)
[2022-08-13 07:32] LABS: ALBUMIN 2.4 G/DL (3.2-5.2); ALKALINE PHOSPHATASE 79 U/L (46-116); ALT/SGPT 17 U/L (7.0-40); AST/SGOT 22 U/L (<34); BILIRUBIN,TOTAL 0.4 MG/DL (0.3-1.2); BLOOD UREA NITROGEN 7 MG/DL (9-23); CALCIUM LEVEL 8.3 MG/DL (8.3-10.6); CARBON DIOXIDE LEVEL 24 MMOL/L (20-31); CHLORIDE LEVEL 109 MMOL/L (98-107); CREATININE FOR GFR 0.79 MG/DL (0.55-1.30); GLOMERULAR FILTRATION RATE > 60.0 (>39); GLUCOSE, FASTING 94 MG/DL (74-106); POTASSIUM SERUM 3.5 MMOL/L (3.5-5.1); SODIUM LEVEL 141 MMOL/L (136-145); TOTAL PROTEIN 5.5 G/DL (5.7-8.2)
[2022-08-13] MEDS: ENOXAPARIN 40MG/0.4ML SYRINGE (J1650 PER 10MG) SC SCH (09:24)
[2022-08-13] MEDS: NEBIVOLOL 5 MG TAB (BYSTOLIC) PO SCH (09:25)
[2022-08-13] MEDS: SERTRALINE HCL 50 MG TAB PO SCH (09:26)
[2022-08-13 14:00] VITALS: BP 124/72
[2022-08-13] MEDS: ACETAMINOPHEN TAB 650MG DOSE (2X325MG) PO PRN (14:38)
[2022-08-13 20:59] VITALS: BP 108/56
[2022-08-13] MEDS: LOSARTAN 50MG TABLET PO SCH (21:00)
[2022-08-13] MEDS: LATANOPROST 0.005% OPHTH SOLN 2.5 ML OU SCH (21:30)
[2022-08-14] MEDS: metroNIDAZOLE 500 MG in IV 1 EA IV SCH ×3 (01:45→18:49)
[2022-08-14] MEDS: CIPROFLOXACIN 400 MG in IV 1 EA IV SCH ×2 (03:25→17:04)
[2022-08-14] MEDS: ONDANSETRON 4MG 2ML VIAL IV PRN (04:55)
[2022-08-14 05:15] LABS: BASO # 0.1 10^3/uL (0.0-0.2); BASO % 0.8 % (0.0-1.0); EOS # 0.4 10^3/uL (0.0-0.5); EOS % 3.1 % (0.0-3.0); HEMATOCRIT 33.6 % (36.0-47.0); HEMOGLOBIN 11.1 g/dl (12.0-15.5); LYMPH # 2.4 10^3/uL (1.5-5.0); LYMPH % 20.2 % (24.0-44.0); MEAN CORPUSCULAR HEMOGLOBIN 31.2 pg (27.0-33.0); MEAN CORPUSCULAR VOLUME 94.4 fl (80.0-96.0); MONO % 8.5 % (2.0-8.0); PLATELET COUNT, AUTOMATED 294 10^3/uL (150-450); RED BLOOD COUNT 3.56 10^6/uL (4.00-5.40); WHITE BLOOD COUNT 11.9 10^3/uL (4.0-10.0)
[2022-08-14 05:41] LABS: ALBUMIN 2.4 G/DL (3.2-5.2); ALKALINE PHOSPHATASE 76 U/L (46-116); ALT/SGPT 17 U/L (7.0-40); AST/SGOT 20 U/L (<34); BILIRUBIN,TOTAL 0.5 MG/DL (0.3-1.2); BLOOD UREA NITROGEN 7 MG/DL (9-23); CALCIUM LEVEL 8.8 MG/DL (8.3-10.6); CARBON DIOXIDE LEVEL 25 MMOL/L (20-31); CHLORIDE LEVEL 107 MMOL/L (98-107); GLOMERULAR FILTRATION RATE > 60.0 (>39); GLUCOSE, FASTING 118 MG/DL (74-106); MAGNESIUM LEVEL 1.7 MG/DL (1.8-2.4); POTASSIUM SERUM 3.4 MMOL/L (3.5-5.1); SODIUM LEVEL 140 MMOL/L (136-145); TOTAL PROTEIN 5.6 G/DL (5.7-8.2)
[2022-08-14 06:45] VITALS: BP 96/52
[2022-08-14] MEDS ORDERED: POTASSIUM CHLORIDE 10MEQ SR TABLET PO ONE (07:30)
[2022-08-14] MEDS: INSULIN LISPRO (NovoLOG) PER UNIT SC SCH ×4 (07:30→20:48)
[2022-08-14] MEDS ORDERED: MAGNESIUM OXIDE 400MG TAB (MAG-OX) PO ONE (07:30)
[2022-08-14] MEDS: SERTRALINE HCL 50 MG TAB PO SCH (10:04)
[2022-08-14] MEDS: NEBIVOLOL 5 MG TAB (BYSTOLIC) PO SCH (10:07)
[2022-08-14] MEDS: ENOXAPARIN 40MG/0.4ML SYRINGE (J1650 PER 10MG) SC SCH (10:08)
[2022-08-14] MEDS: NS 1,000 ML IV SCH ×2 (11:40→21:08)
[2022-08-14 14:00] VITALS: BP 116/59
[2022-08-14 19:56] VITALS: BP 125/59
[2022-08-14] MEDS: LOSARTAN 50MG TABLET PO SCH (20:48)
[2022-08-14] MEDS: LATANOPROST 0.005% OPHTH SOLN 2.5 ML OU SCH (21:08)
[2022-08-15] MEDS: metroNIDAZOLE 500 MG in IV 1 EA IV SCH ×3 (01:36→17:19)
[2022-08-15] MEDS: CIPROFLOXACIN 400 MG in IV 1 EA IV SCH ×2 (04:57→15:29)
[2022-08-15 06:21] LABS: BASO # 0.1 10^3/uL (0.0-0.2); BASO % 0.8 % (0.0-1.0); EOS # 0.4 10^3/uL (0.0-0.5); EOS % 3.1 % (0.0-3.0); HEMATOCRIT 33.9 % (36.0-47.0); HEMOGLOBIN 10.9 g/dl (12.0-15.5); LYMPH # 2.2 10^3/uL (1.5-5.0); LYMPH % 18.7 % (24.0-44.0); MEAN CORPUSCULAR HEMOGLOBIN 31.3 pg (27.0-33.0); MEAN CORPUSCULAR HGB CONC 32.2 g/dl (32.0-36.5); MEAN CORPUSCULAR VOLUME 97.4 fl (80.0-96.0); MONO # 0.8 10^3/uL (0.0-0.8); MONO % 6.9 % (2.0-8.0); NEUTROPHILS # 8.4 10^3/uL (1.5-8.5); NEUTROPHILS % 70.1 % (36.0-66.0); PLATELET COUNT, AUTOMATED 295 10^3/uL (150-450); RED BLOOD COUNT 3.48 10^6/uL (4.00-5.40); WHITE BLOOD COUNT 11.9 10^3/uL (4.0-10.0)
[2022-08-15 06:43] VITALS: BP 122/68
[2022-08-15 07:12] LABS: ALBUMIN 2.2 G/DL (3.2-5.2); ALKALINE PHOSPHATASE 66 U/L (46-116); ALT/SGPT 16 U/L (7.0-40); AST/SGOT 18 U/L (<34); BILIRUBIN,TOTAL 0.3 MG/DL (0.3-1.2); BLOOD UREA NITROGEN 6 MG/DL (9-23); CALCIUM LEVEL 8.1 MG/DL (8.3-10.6); CARBON DIOXIDE LEVEL 25 MMOL/L (20-31); CHLORIDE LEVEL 110 MMOL/L (98-107); CREATININE FOR GFR 0.76 MG/DL (0.55-1.30); GLOMERULAR FILTRATION RATE > 60.0 (>39); GLUCOSE, FASTING 135 MG/DL (74-106); MAGNESIUM LEVEL 1.6 MG/DL (1.8-2.4); POTASSIUM SERUM 4.1 MMOL/L (3.5-5.1); SODIUM LEVEL 141 MMOL/L (136-145); TOTAL PROTEIN 4.9 G/DL (5.7-8.2)
[2022-08-15] MEDS ORDERED: MAGNESIUM OXIDE 400MG TAB (MAG-OX) PO ONE (07:25)
[2022-08-15] MEDS: INSULIN LISPRO (NovoLOG) PER UNIT SC SCH ×4 (07:30→20:04)
[2022-08-15] MEDS: NEBIVOLOL 5 MG TAB (BYSTOLIC) PO SCH (08:39)
[2022-08-15] MEDS: SERTRALINE HCL 50 MG TAB PO SCH (08:40)
[2022-08-15] MEDS: ENOXAPARIN 40MG/0.4ML SYRINGE (J1650 PER 10MG) SC SCH (08:41)
[2022-08-15 09:00] VITALS: BP 110/54
[2022-08-15] MEDS: NYSTATIN 500,000U/5ML SUSP UDC PO SCH ×4 (09:10→20:08)
[2022-08-15] MEDS: NS 1,000 ML IV SCH ×2 (10:36→15:29)
[2022-08-15 14:08] VITALS: BP 111/55
[2022-08-15] MEDS: LOSARTAN 50MG TABLET PO SCH (20:04)
[2022-08-15] MEDS: LATANOPROST 0.005% OPHTH SOLN 2.5 ML OU SCH (20:08)
[2022-08-15] MEDS: ACETAMINOPHEN TAB 650MG DOSE (2X325MG) PO PRN (20:12)
[2022-08-15 22:00] VITALS: BP 114/55
[2022-08-16] MEDS: metroNIDAZOLE 500 MG in IV 1 EA IV SCH ×3 (01:28→17:45)
[2022-08-16] MEDS: NS 1,000 ML IV SCH ×3 (03:08→23:32)
[2022-08-16] MEDS: CIPROFLOXACIN 400 MG in IV 1 EA IV SCH ×2 (04:45→16:21)
[2022-08-16 06:00] VITALS: BP 126/67
[2022-08-16 06:20] LABS: BASO # 0.1 10^3/uL (0.0-0.2); BASO % 0.7 % (0.0-1.0); EOS # 0.3 10^3/uL (0.0-0.5); EOS % 2.7 % (0.0-3.0); HEMATOCRIT 32.6 % (36.0-47.0); HEMOGLOBIN 10.7 g/dl (12.0-15.5); LYMPH % 16.7 % (24.0-44.0); MEAN CORPUSCULAR HEMOGLOBIN 31.8 pg (27.0-33.0); MEAN CORPUSCULAR HGB CONC 32.8 g/dl (32.0-36.5); MONO # 0.9 10^3/uL (0.0-0.8); MONO % 7.6 % (2.0-8.0); NEUTROPHILS # 8.5 10^3/uL (1.5-8.5); NEUTROPHILS % 71.8 % (36.0-66.0); PLATELET COUNT, AUTOMATED 309 10^3/uL (150-450); RED BLOOD COUNT 3.36 10^6/uL (4.00-5.40); WHITE BLOOD COUNT 11.8 10^3/uL (4.0-10.0)
[2022-08-16 06:45] LABS: ALBUMIN 2.2 G/DL (3.2-5.2); ALKALINE PHOSPHATASE 66 U/L (46-116); ALT/SGPT 16 U/L (7.0-40); AST/SGOT 20 U/L (<34); BILIRUBIN,TOTAL 0.4 MG/DL (0.3-1.2); BLOOD UREA NITROGEN < 5 MG/DL (9-23); CALCIUM LEVEL 7.9 MG/DL (8.3-10.6); CARBON DIOXIDE LEVEL 24 MMOL/L (20-31); CHLORIDE LEVEL 108 MMOL/L (98-107); CREATININE FOR GFR 0.72 MG/DL (0.55-1.30); GLOMERULAR FILTRATION RATE > 60.0 (>39); GLUCOSE, FASTING 135 MG/DL (74-106); MAGNESIUM LEVEL 1.6 MG/DL (1.8-2.4); POTASSIUM SERUM 3.7 MMOL/L (3.5-5.1); SODIUM LEVEL 140 MMOL/L (136-145)
[2022-08-16] MEDS: INSULIN LISPRO (NovoLOG) PER UNIT SC SCH ×4 (07:17→20:28)
[2022-08-16] MEDS ORDERED: MAGNESIUM OXIDE 400MG TAB (MAG-OX) PO ONE (07:25)
[2022-08-16 07:30] VITALS: BP 140/72
[2022-08-16] MEDS: SERTRALINE HCL 50 MG TAB PO SCH (08:50)
[2022-08-16] MEDS: NEBIVOLOL 5 MG TAB (BYSTOLIC) PO SCH (08:52)
[2022-08-16] MEDS: NYSTATIN 500,000U/5ML SUSP UDC PO SCH ×4 (08:55→20:28)
[2022-08-16] MEDS: ENOXAPARIN 40MG/0.4ML SYRINGE (J1650 PER 10MG) SC SCH (08:57)
[2022-08-16 14:00] VITALS: BP 120/66
[2022-08-16] MEDS ORDERED: FLUCONAZOLE 50MG TABLET PO ONE (20:00)
[2022-08-16] MEDS: LOSARTAN 50MG TABLET PO SCH (20:28)
[2022-08-16] MEDS: LATANOPROST 0.005% OPHTH SOLN 2.5 ML OU SCH (20:29)
[2022-08-16 21:33] VITALS: BP 141/69
[2022-08-17] MEDS: metroNIDAZOLE 500 MG in IV 1 EA IV SCH ×3 (01:53→18:31)
[2022-08-17] MEDS: CIPROFLOXACIN 400 MG in IV 1 EA IV SCH ×2 (04:40→16:34)
[2022-08-17 06:00] VITALS: BP 140/69
[2022-08-17 06:15] LABS: ALBUMIN 2.5 G/DL (3.2-5.2); ALKALINE PHOSPHATASE 70 U/L (46-116); ALT/SGPT 16 U/L (7.0-40); AST/SGOT 23 U/L (<34); BILIRUBIN,TOTAL 0.4 MG/DL (0.3-1.2); BLOOD UREA NITROGEN < 5 MG/DL (9-23); CALCIUM LEVEL 8.1 MG/DL (8.3-10.6); CARBON DIOXIDE LEVEL 23 MMOL/L (20-31); CHLORIDE LEVEL 108 MMOL/L (98-107); CREATININE FOR GFR 0.74 MG/DL (0.55-1.30); GLOMERULAR FILTRATION RATE > 60.0 (>39); GLUCOSE, FASTING 103 MG/DL (74-106); MAGNESIUM LEVEL 1.7 MG/DL (1.8-2.4); POTASSIUM SERUM 4.1 MMOL/L (3.5-5.1); SODIUM LEVEL 142 MMOL/L (136-145); TOTAL PROTEIN 5.4 G/DL (5.7-8.2)
[2022-08-17] MEDS: INSULIN LISPRO (NovoLOG) PER UNIT SC SCH ×4 (07:30→20:32)
[2022-08-17 07:53] LABS: BASO # 0.1 10^3/uL (0.0-0.2); BASO % 0.8 % (0.0-1.0); EOS # 0.3 10^3/uL (0.0-0.5); EOS % 2.7 % (0.0-3.0); HEMATOCRIT 35.2 % (36.0-47.0); HEMOGLOBIN 11.5 g/dl (12.0-15.5); LYMPH # 2.9 10^3/uL (1.5-5.0); LYMPH % 22.4 % (24.0-44.0); MEAN CORPUSCULAR HEMOGLOBIN 31.3 pg (27.0-33.0); MEAN CORPUSCULAR HGB CONC 32.7 g/dl (32.0-36.5); MEAN CORPUSCULAR VOLUME 95.9 fl (80.0-96.0); MONO % 8.2 % (2.0-8.0); NEUTROPHILS # 8.3 10^3/uL (1.5-8.5); NEUTROPHILS % 65.4 % (36.0-66.0); PLATELET COUNT, AUTOMATED 336 10^3/uL (150-450); RED BLOOD COUNT 3.67 10^6/uL (4.00-5.40); WHITE BLOOD COUNT 12.7 10^3/uL (4.0-10.0)
[2022-08-17] MEDS ORDERED: MAGNESIUM OXIDE 400MG TAB (MAG-OX) PO ONE (08:30)
[2022-08-17] MEDS: ENOXAPARIN 40MG/0.4ML SYRINGE (J1650 PER 10MG) SC SCH (09:48)
[2022-08-17] MEDS: NYSTATIN 500,000U/5ML SUSP UDC PO SCH ×4 (09:48→20:30)
[2022-08-17] MEDS: NEBIVOLOL 5 MG TAB (BYSTOLIC) PO SCH (09:51)
[2022-08-17] MEDS: ACETAMINOPHEN TAB 650MG DOSE (2X325MG) PO PRN ×2 (09:52→20:31)
[2022-08-17] MEDS: SERTRALINE HCL 50 MG TAB PO SCH (09:53)
[2022-08-17 14:00] VITALS: BP 141/77
[2022-08-17] MEDS: LATANOPROST 0.005% OPHTH SOLN 2.5 ML OU SCH (20:32)
[2022-08-17] MEDS: LOSARTAN 50MG TABLET PO SCH (20:32)
[2022-08-17 22:00] VITALS: BP 144/77
[2022-08-18] MEDS: metroNIDAZOLE 500 MG in IV 1 EA IV SCH ×3 (01:28→16:58)
[2022-08-18] MEDS: CIPROFLOXACIN 400 MG in IV 1 EA IV SCH ×2 (04:54→15:09)
[2022-08-18 06:00] VITALS: BP 130/64
[2022-08-18 06:42] LABS: BASO # 0.1 10^3/uL (0.0-0.2); BASO % 1.1 % (0.0-1.0); EOS # 0.3 10^3/uL (0.0-0.5); EOS % 3.1 % (0.0-3.0); HEMATOCRIT 32.6 % (36.0-47.0); HEMOGLOBIN 10.7 g/dl (12.0-15.5); LYMPH # 2.4 10^3/uL (1.5-5.0); LYMPH % 22.5 % (24.0-44.0); MEAN CORPUSCULAR HEMOGLOBIN 31.6 pg (27.0-33.0); MEAN CORPUSCULAR HGB CONC 32.8 g/dl (32.0-36.5); MEAN CORPUSCULAR VOLUME 96.2 fl (80.0-96.0); MONO # 0.9 10^3/uL (0.0-0.8); MONO % 8.6 % (2.0-8.0); NEUTROPHILS # 6.7 10^3/uL (1.5-8.5); NEUTROPHILS % 64.1 % (36.0-66.0); PLATELET COUNT, AUTOMATED 339 10^3/uL (150-450); RED BLOOD COUNT 3.39 10^6/uL (4.00-5.40); WHITE BLOOD COUNT 10.5 10^3/uL (4.0-10.0)
[2022-08-18 07:21] LABS: ALBUMIN 2.3 G/DL (3.2-5.2); ALKALINE PHOSPHATASE 64 U/L (46-116); ALT/SGPT 13 U/L (7.0-40); AST/SGOT 15 U/L (<34); BILIRUBIN,TOTAL 0.4 MG/DL (0.3-1.2); BLOOD UREA NITROGEN 7 MG/DL (9-23); CALCIUM LEVEL 8.2 MG/DL (8.3-10.6); CARBON DIOXIDE LEVEL 26 MMOL/L (20-31); CHLORIDE LEVEL 106 MMOL/L (98-107); CREATININE FOR GFR 0.78 MG/DL (0.55-1.30); GLOMERULAR FILTRATION RATE > 60.0 (>39); GLUCOSE, FASTING 100 MG/DL (74-106); MAGNESIUM LEVEL 1.7 MG/DL (1.8-2.4); POTASSIUM SERUM 3.9 MMOL/L (3.5-5.1); SODIUM LEVEL 140 MMOL/L (136-145)
[2022-08-18] MEDS: INSULIN LISPRO (NovoLOG) PER UNIT SC SCH ×4 (07:30→21:00)
[2022-08-18] MEDS ORDERED: MAGNESIUM OXIDE 400MG TAB (MAG-OX) PO ONE (08:00)
[2022-08-18] MEDS: ACETAMINOPHEN TAB 650MG DOSE (2X325MG) PO PRN ×2 (09:25→21:37)
[2022-08-18] MEDS: ENOXAPARIN 40MG/0.4ML SYRINGE (J1650 PER 10MG) SC SCH (09:26)
[2022-08-18] MEDS: NYSTATIN 500,000U/5ML SUSP UDC PO SCH ×4 (09:26→21:33)
[2022-08-18] MEDS: NEBIVOLOL 5 MG TAB (BYSTOLIC) PO SCH (09:29)
[2022-08-18] MEDS: SERTRALINE HCL 50 MG TAB PO SCH (09:29)
[2022-08-18 14:00] VITALS: BP 133/70
[2022-08-18] MEDS: LATANOPROST 0.005% OPHTH SOLN 2.5 ML OU SCH (21:33)
[2022-08-18] MEDS: LOSARTAN 50MG TABLET PO SCH (21:33)
[2022-08-18 22:00] VITALS: BP 146/81
[2022-08-19] MEDS: metroNIDAZOLE 500 MG in IV 1 EA IV SCH ×3 (01:25→17:25)
[2022-08-19] MEDS: CIPROFLOXACIN 400 MG in IV 1 EA IV SCH ×2 (04:36→15:51)
[2022-08-19] MEDS: SIMETHICONE 80MG CHEW TAB PO PRN (04:53)
[2022-08-19] MEDS: ONDANSETRON 4MG 2ML VIAL IV PRN ×2 (05:35→15:15)
[2022-08-19 06:00] VITALS: BP 135/73
[2022-08-19 06:44] LABS: BASO # 0.1 10^3/uL (0.0-0.2); BASO % 0.7 % (0.0-1.0); EOS # 0.2 10^3/uL (0.0-0.5); EOS % 1.8 % (0.0-3.0); HEMOGLOBIN 11.1 g/dl (12.0-15.5); LYMPH # 1.6 10^3/uL (1.5-5.0); MEAN CORPUSCULAR HEMOGLOBIN 31.2 pg (27.0-33.0); MEAN CORPUSCULAR HGB CONC 32.6 g/dl (32.0-36.5); MEAN CORPUSCULAR VOLUME 95.5 fl (80.0-96.0); MONO # 0.9 10^3/uL (0.0-0.8); MONO % 7.7 % (2.0-8.0); NEUTROPHILS # 8.8 10^3/uL (1.5-8.5); NEUTROPHILS % 75.3 % (36.0-66.0); PLATELET COUNT, AUTOMATED 370 10^3/uL (150-450); RED BLOOD COUNT 3.56 10^6/uL (4.00-5.40); WHITE BLOOD COUNT 11.6 10^3/uL (4.0-10.0)
[2022-08-19 07:26] LABS: ALBUMIN 2.3 G/DL (3.2-5.2); ALKALINE PHOSPHATASE 65 U/L (46-116); ALT/SGPT 13 U/L (7.0-40); AST/SGOT 16 U/L (<34); BILIRUBIN,TOTAL 0.4 MG/DL (0.3-1.2); BLOOD UREA NITROGEN 6 MG/DL (9-23); CALCIUM LEVEL 7.8 MG/DL (8.3-10.6); CARBON DIOXIDE LEVEL 25 MMOL/L (20-31); CHLORIDE LEVEL 105 MMOL/L (98-107); CREATININE FOR GFR 0.79 MG/DL (0.55-1.30); GLOMERULAR FILTRATION RATE > 60.0 (>39); GLUCOSE, FASTING 147 MG/DL (74-106); MAGNESIUM LEVEL 1.7 MG/DL (1.8-2.4); POTASSIUM SERUM 3.4 MMOL/L (3.5-5.1); SODIUM LEVEL 138 MMOL/L (136-145)
[2022-08-19] MEDS: INSULIN LISPRO (NovoLOG) PER UNIT SC SCH ×4 (07:30→21:00)
[2022-08-19] MEDS: POTASSIUM CHLORIDE 10MEQ SR TABLET PO ONE ×2 (07:45→08:35)
[2022-08-19] MEDS: MAGNESIUM OXIDE 400MG TAB (MAG-OX) PO ONE ×2 (07:45→08:34)
[2022-08-19] MEDS: NYSTATIN 500,000U/5ML SUSP UDC PO SCH ×5 (08:33→21:00)
[2022-08-19] MEDS: ACETAMINOPHEN TAB 650MG DOSE (2X325MG) PO PRN (08:34)
[2022-08-19] MEDS: NEBIVOLOL 5 MG TAB (BYSTOLIC) PO SCH (08:40)
[2022-08-19] MEDS: SERTRALINE HCL 50 MG TAB PO SCH (08:40)
[2022-08-19] MEDS: ENOXAPARIN 40MG/0.4ML SYRINGE (J1650 PER 10MG) SC SCH (08:41)
[2022-08-19 09:17] LABS: TOTAL PROTEIN 5.1 G/DL (5.7-8.2)
[2022-08-19] MEDS ORDERED: ACETAMINOPHEN 650MG SUPP PR ONE (09:40)
[2022-08-19] MEDS ORDERED: ACETAMINOPHEN 325MG/10.15ML UDC PO ONE (09:45)
[2022-08-19] MEDS ORDERED: MAG SULF 1GM/100ML (MAG RUN) 1 GM in IV 1 EA IV ONE (10:00)
[2022-08-19] MEDS ORDERED: KCL 10MEQ/100ML SWI (KRUN) 10 MEQ in IV 1 EA IV ONE (11:00)
[2022-08-19 13:57] VITALS: BP 137/73
[2022-08-19 14:00] VITALS: BP 137/73
[2022-08-19] MEDS ORDERED: ACETAMINOPHEN 325MG/10.15ML UDC GT PRN (15:45)
[2022-08-19] MEDS: MORPHINE 2 MG/ML 1ML VIAL IV PRN (16:18)
[2022-08-19 20:02] VITALS: BP 150/76
[2022-08-19] MEDS ORDERED: PROMETHAZINE 25MG/ML 1ML VIAL IV ONE (20:25)
[2022-08-19] MEDS: LOSARTAN 50MG TABLET PO SCH (21:12)
[2022-08-19] MEDS: LATANOPROST 0.005% OPHTH SOLN 2.5 ML OU SCH (21:13)
[2022-08-20] VITALS (11 sets, daily range): BP systolic 93–147; BP diastolic 48–74
[2022-08-20] MEDS: metroNIDAZOLE 500 MG in IV 1 EA IV SCH ×3 (01:24→18:19)
[2022-08-20] MEDS: CIPROFLOXACIN 400 MG in IV 1 EA IV SCH ×2 (04:55→16:54)
[2022-08-20] MEDS: MORPHINE 2 MG/ML 1ML VIAL IV PRN (06:07)
[2022-08-20 06:21] LABS: BASO # 0.1 10^3/uL (0.0-0.2); BASO % 0.4 % (0.0-1.0); EOS % 0.1 % (0.0-3.0); HEMATOCRIT 35.3 % (36.0-47.0); HEMOGLOBIN 11.7 g/dl (12.0-15.5); LYMPH # 1.7 10^3/uL (1.5-5.0); LYMPH % 11.8 % (24.0-44.0); MEAN CORPUSCULAR HEMOGLOBIN 31.7 pg (27.0-33.0); MEAN CORPUSCULAR HGB CONC 33.1 g/dl (32.0-36.5); MEAN CORPUSCULAR VOLUME 95.7 fl (80.0-96.0); MONO # 0.7 10^3/uL (0.0-0.8); MONO % 4.6 % (2.0-8.0); NEUTROPHILS # 12.1 10^3/uL (1.5-8.5); NEUTROPHILS % 82.6 % (36.0-66.0); PLATELET COUNT, AUTOMATED 428 10^3/uL (150-450); RED BLOOD COUNT 3.69 10^6/uL (4.00-5.40); WHITE BLOOD COUNT 14.7 10^3/uL (4.0-10.0)
[2022-08-20 06:56] LABS: ALBUMIN 2.3 G/DL (3.2-5.2); ALKALINE PHOSPHATASE 66 U/L (46-116); ALT/SGPT 10 U/L (7.0-40); AST/SGOT 13 U/L (<34); BILIRUBIN,TOTAL 0.3 MG/DL (0.3-1.2); BLOOD UREA NITROGEN 7 MG/DL (9-23); CALCIUM LEVEL 8.2 MG/DL (8.3-10.6); CARBON DIOXIDE LEVEL 26 MMOL/L (20-31); CHLORIDE LEVEL 105 MMOL/L (98-107); CREATININE FOR GFR 0.74 MG/DL (0.55-1.30); GLOMERULAR FILTRATION RATE > 60.0 (>39); GLUCOSE, FASTING 147 MG/DL (74-106); POTASSIUM SERUM 3.4 MMOL/L (3.5-5.1); SODIUM LEVEL 140 MMOL/L (136-145); TOTAL PROTEIN 5.2 G/DL (5.7-8.2)
[2022-08-20] MEDS: INSULIN LISPRO (NovoLOG) PER UNIT SC SCH ×4 (07:30→19:52)
[2022-08-20 08:46] LABS: BASO # 0.1 10^3/uL (0.0-0.2); BASO % 0.5 % (0.0-1.0); EOS % 0.2 % (0.0-3.0); HEMATOCRIT 36.9 % (36.0-47.0); HEMOGLOBIN 11.8 g/dl (12.0-15.5); LYMPH # 1.8 10^3/uL (1.5-5.0); LYMPH % 11.8 % (24.0-44.0); MEAN CORPUSCULAR HEMOGLOBIN 30.8 pg (27.0-33.0); MEAN CORPUSCULAR VOLUME 96.3 fl (80.0-96.0); MONO # 0.9 10^3/uL (0.0-0.8); MONO % 6.2 % (2.0-8.0); NEUTROPHILS # 12.1 10^3/uL (1.5-8.5); NEUTROPHILS % 80.7 % (36.0-66.0); PLATELET COUNT, AUTOMATED 421 10^3/uL (150-450); RED BLOOD COUNT 3.83 10^6/uL (4.00-5.40)
[2022-08-20] MEDS: NYSTATIN 500,000U/5ML SUSP UDC PO SCH ×4 (08:59→20:31)
[2022-08-20] MEDS: NEBIVOLOL 5 MG TAB (BYSTOLIC) PO SCH (08:59)
[2022-08-20] MEDS: ENOXAPARIN 40MG/0.4ML SYRINGE (J1650 PER 10MG) SC SCH (08:59)
[2022-08-20] MEDS: SERTRALINE HCL 50 MG TAB PO SCH (08:59)
[2022-08-20 09:14] LABS: BLOOD UREA NITROGEN 7 MG/DL (9-23); CALCIUM LEVEL 8.1 MG/DL (8.3-10.6); CARBON DIOXIDE LEVEL 25 MMOL/L (20-31); CHLORIDE LEVEL 106 MMOL/L (98-107); CREATININE FOR GFR 0.75 MG/DL (0.55-1.30); GLOMERULAR FILTRATION RATE > 60.0 (>39); GLUCOSE, FASTING 111 MG/DL (74-106); POTASSIUM SERUM 3.6 MMOL/L (3.5-5.1); SODIUM LEVEL 139 MMOL/L (136-145)
[2022-08-20] MEDS: NS 1,000 ML IV SCH ×4 (09:44→23:20)
[2022-08-20] MEDS ORDERED: CHOLESTYRAMINE 4GM PWD PKT PO SCH (10:00)
[2022-08-20] MEDS ORDERED: GLUCAGON INJ 1MG VIAL As Ordered ONE (12:00)
[2022-08-20] MEDS ORDERED: BUPIVACAINE/EPIN 0.5% 30ML VIAL As Ordered ONE (12:00)
[2022-08-20] MEDS ORDERED: SUCCINYLCHOLINE 100MG/5ML SYRINGE As Ordered ONE (12:29)
[2022-08-20] MEDS ORDERED: ROCURONIUM BROMIDE 50MG/5ML VIAL As Ordered ONE (12:29)
[2022-08-20] MEDS ORDERED: ONDANSETRON 4MG 2ML VIAL As Ordered ONE (12:30)
[2022-08-20] MEDS ORDERED: propofoL 200 MG/20 ML VIAL As Ordered ONE (12:30)
[2022-08-20] MEDS ORDERED: MIDAZOLAM INJ 2MG/2ML VIAL As Ordered ONE (12:30)
[2022-08-20] MEDS ORDERED: SUGAMMADEX SODIUM 500 MG/5 ML VIAL (BRIDION) As Ordered ONE (12:30)
[2022-08-20] MEDS ORDERED: fentaNYL 100 MCG/2 ML INJECTION As Ordered ONE (12:30)
[2022-08-20] MEDS ORDERED: METOCLOPRAMIDE INJ 10MG/2ML VIAL As Ordered ONE (12:31)
[2022-08-20] MEDS ORDERED: LIDOCAINE 2% 100MG/5ML SDV (FOR ANES.) As Ordered ONE (12:31)
[2022-08-20] MEDS ORDERED: BUPIVACAINE HCL 0.25% 30ML VIAL As Ordered ONE (13:08)
[2022-08-20] MEDS ORDERED: BUPIVACAINE LIPOSOME/PF 1.3% 20ML VIAL (13.3MG/ML)(EXPAREL) As Ordered ONE (13:08)
[2022-08-20] MEDS ORDERED: HYDROmorphone HCL 2MG/ML 1ML VIAL As Ordered ONE (13:47)
[2022-08-20] MEDS ORDERED: fentaNYL 100 MCG/2 ML INJECTION IV PRN (15:30)
[2022-08-20] MEDS ORDERED: ONDANSETRON 4MG 2ML VIAL IV PRN (15:30)
[2022-08-20] MEDS ORDERED: oxyCODONE 5MG TAB PO PRN (15:30)
[2022-08-20] MEDS ORDERED: KETOROLAC 60MG 2ML VIAL As Ordered ONE (15:33)
[2022-08-20] MEDS ORDERED: PHENYLephrine 500MCG 5ML (100MCG/ML) SYRINGE As Ordered ONE (15:33)
[2022-08-20] MEDS: HYDROMORPHONE HCL 0.5 MG/ 0.5 ML SYRINGE IV PRN ×2 (16:17→16:28)
[2022-08-20] MEDS ORDERED: IPRATROPIUM 0.5MG/ALBUTEROL 2.5MG INH SOL UD 3ML (DUONEB) NEB PRN (17:55)
[2022-08-20] MEDS: IPRATROPIUM 0.5MG/ALBUTEROL 2.5MG INH SOL UD 3ML (DUONEB) NEB SCH (19:37)
[2022-08-20] MEDS: ALVIMOPAN 12 MG CAPSULE (ENTEREG) PO SCH (20:04)
[2022-08-20] MEDS: LATANOPROST 0.005% OPHTH SOLN 2.5 ML OU SCH (20:07)
[2022-08-21] MEDS: metroNIDAZOLE 500 MG in IV 1 EA IV SCH ×3 (00:30→17:02)
[2022-08-21] MEDS: IPRATROPIUM 0.5MG/ALBUTEROL 2.5MG INH SOL UD 3ML (DUONEB) NEB SCH ×4 (01:32→19:37)
[2022-08-21 01:39] VITALS: BP 114/62
[2022-08-21] MEDS: MORPHINE 2 MG/ML 1ML VIAL IV PRN ×3 (01:39→15:54)
[2022-08-21] MEDS: CIPROFLOXACIN 400 MG in IV 1 EA IV SCH ×2 (03:33→15:43)
[2022-08-21] MEDS: NS 1,000 ML IV SCH ×5 (03:37→23:22)
[2022-08-21 05:44] VITALS: BP 104/62
[2022-08-21 05:58] LABS: BASO % 0.2 % (0.0-1.0); EOS % 0.1 % (0.0-3.0); HEMATOCRIT 31.8 % (36.0-47.0); HEMOGLOBIN 10.1 g/dl (12.0-15.5); LYMPH # 1.8 10^3/uL (1.5-5.0); LYMPH % 9.8 % (24.0-44.0); MEAN CORPUSCULAR HEMOGLOBIN 30.9 pg (27.0-33.0); MEAN CORPUSCULAR HGB CONC 31.8 g/dl (32.0-36.5); MEAN CORPUSCULAR VOLUME 97.2 fl (80.0-96.0); MONO # 1.4 10^3/uL (0.0-0.8); MONO % 7.6 % (2.0-8.0); NEUTROPHILS # 15.1 10^3/uL (1.5-8.5); NEUTROPHILS % 81.7 % (36.0-66.0); PLATELET COUNT, AUTOMATED 374 10^3/uL (150-450); RED BLOOD COUNT 3.27 10^6/uL (4.00-5.40); WHITE BLOOD COUNT 18.5 10^3/uL (4.0-10.0)
[2022-08-21] MEDS: ACETAMINOPHEN 325MG/10.15ML UDC PO PRN (06:02)
[2022-08-21 06:26] LABS: BLOOD UREA NITROGEN 13 MG/DL (9-23); CALCIUM LEVEL 7.3 MG/DL (8.3-10.6); CARBON DIOXIDE LEVEL 24 MMOL/L (20-31); CHLORIDE LEVEL 108 MMOL/L (98-107); CREATININE FOR GFR 0.76 MG/DL (0.55-1.30); GLOMERULAR FILTRATION RATE > 60.0 (>39); GLUCOSE, FASTING 116 MG/DL (74-106); POTASSIUM SERUM 3.9 MMOL/L (3.5-5.1); SODIUM LEVEL 138 MMOL/L (136-145)
[2022-08-21] MEDS: INSULIN LISPRO (NovoLOG) PER UNIT SC SCH ×4 (07:30→19:54)
[2022-08-21 08:00] VITALS: BP 112/59
[2022-08-21] MEDS: ALVIMOPAN 12 MG CAPSULE (ENTEREG) PO SCH ×3 (08:53→20:51)
[2022-08-21] MEDS: SERTRALINE HCL 50 MG TAB PO SCH (08:53)
[2022-08-21] MEDS: ENOXAPARIN 40MG/0.4ML SYRINGE (J1650 PER 10MG) SC SCH (08:53)
[2022-08-21] MEDS: NYSTATIN 500,000U/5ML SUSP UDC PO SCH ×2 (08:54→13:00)
[2022-08-21] MEDS ORDERED: NEBIVOLOL 5 MG TAB (BYSTOLIC) PO SCH (09:00)
[2022-08-21 10:00] VITALS: BP 113/59
[2022-08-21] MEDS ORDERED: NS 1,000 ML IV ONE (10:00)
[2022-08-21 14:00] VITALS: BP 158/59
[2022-08-21] MEDS: SIMETHICONE 80MG CHEW TAB PO PRN (14:56)
[2022-08-21] MEDS: PANTOPRAZOLE 40MG VIAL IV SCH (15:40)
[2022-08-21] MEDS: ONDANSETRON 4MG 2ML VIAL IV PRN (15:53)
[2022-08-21] MEDS: LATANOPROST 0.005% OPHTH SOLN 2.5 ML OU SCH ×2 (20:41→20:51)
[2022-08-21 22:00] VITALS: BP 145/60
[2022-08-22] MEDS: metroNIDAZOLE 500 MG in IV 1 EA IV SCH ×2 (00:39→09:25)
[2022-08-22] MEDS: IPRATROPIUM 0.5MG/ALBUTEROL 2.5MG INH SOL UD 3ML (DUONEB) NEB SCH ×4 (01:29→19:32)
[2022-08-22 02:00] VITALS: BP 145/62
[2022-08-22] MEDS: CIPROFLOXACIN 400 MG in IV 1 EA IV SCH (03:23)
[2022-08-22] MEDS: MORPHINE 2 MG/ML 1ML VIAL IV PRN (03:34)
[2022-08-22] MEDS: NS 1,000 ML IV SCH ×3 (05:23→21:16)
[2022-08-22 05:46] LABS: BASO # 0.1 10^3/uL (0.0-0.2); BASO % 0.4 % (0.0-1.0); EOS # 0.2 10^3/uL (0.0-0.5); EOS % 1.2 % (0.0-3.0); HEMOGLOBIN 9.8 g/dl (12.0-15.5); LYMPH # 2.2 10^3/uL (1.5-5.0); LYMPH % 12.1 % (24.0-44.0); MEAN CORPUSCULAR HEMOGLOBIN 31.6 pg (27.0-33.0); MEAN CORPUSCULAR HGB CONC 32.7 g/dl (32.0-36.5); MEAN CORPUSCULAR VOLUME 96.8 fl (80.0-96.0); MONO # 1.2 10^3/uL (0.0-0.8); MONO % 6.7 % (2.0-8.0); NEUTROPHILS # 14.3 10^3/uL (1.5-8.5); PLATELET COUNT, AUTOMATED 386 10^3/uL (150-450); WHITE BLOOD COUNT 18.1 10^3/uL (4.0-10.0)
[2022-08-22 06:00] VITALS: BP 155/76
[2022-08-22 06:14] LABS: BLOOD UREA NITROGEN 10 MG/DL (9-23); CALCIUM LEVEL 7.2 MG/DL (8.3-10.6); CARBON DIOXIDE LEVEL 23 MMOL/L (20-31); CHLORIDE LEVEL 110 MMOL/L (98-107); CREATININE FOR GFR 0.64 MG/DL (0.55-1.30); GLOMERULAR FILTRATION RATE > 60.0 (>39); GLUCOSE, FASTING 103 MG/DL (74-106); POTASSIUM SERUM 3.5 MMOL/L (3.5-5.1); SODIUM LEVEL 139 MMOL/L (136-145)
[2022-08-22] MEDS: ONDANSETRON 4MG 2ML VIAL IV PRN (06:57)
[2022-08-22] MEDS: INSULIN LISPRO (NovoLOG) PER UNIT SC SCH ×4 (07:30→21:00)
[2022-08-22] MEDS: ENOXAPARIN 40MG/0.4ML SYRINGE (J1650 PER 10MG) SC SCH (08:55)
[2022-08-22] MEDS: ALVIMOPAN 12 MG CAPSULE (ENTEREG) PO SCH ×3 (08:56→21:15)
[2022-08-22 09:51] VITALS: BP 156/85
[2022-08-22 10:05] VITALS: BP 163/79
[2022-08-22] MEDS: NEBIVOLOL 5 MG TAB (BYSTOLIC) PO SCH (10:44)
[2022-08-22] MEDS ORDERED: LIDOCAINE 1% MDV 20ML VIAL As Ordered ONE (13:59)
[2022-08-22] MEDS ORDERED: CETACAINE SPRAY 5GM TOP ONE (15:00)
[2022-08-22 15:30] VITALS: BP 160/81
[2022-08-22] MEDS ORDERED: SODIUM CHLORIDE 0.9% INJ 10 ML SYR IV PRN (15:45)
[2022-08-22] MEDS: PIPERACILLIN/TAZOBACTAM SOD 3.375 GM in D5W MINI-BAG PLUS 50 ML IV SCH ×2 (16:03→21:15)
[2022-08-22] MEDS: PANTOPRAZOLE 40MG VIAL IV SCH (16:03)
[2022-08-22] MEDS: SODIUM CHLORIDE 0.9% INJ 10 ML SYR IV SCH (17:24)
[2022-08-22 20:37] VITALS: BP 111/77
[2022-08-22] MEDS: LATANOPROST 0.005% OPHTH SOLN 2.5 ML OU SCH (21:16)
[2022-08-23] MEDS: IPRATROPIUM 0.5MG/ALBUTEROL 2.5MG INH SOL UD 3ML (DUONEB) NEB SCH ×4 (02:38→20:17)
[2022-08-23] MEDS: PIPERACILLIN/TAZOBACTAM SOD 3.375 GM in D5W MINI-BAG PLUS 50 ML IV SCH ×4 (04:17→22:18)
[2022-08-23] MEDS: SODIUM CHLORIDE 0.9% INJ 10 ML SYR IV SCH ×2 (05:43→17:19)
[2022-08-23 06:14] VITALS: BP 138/70
[2022-08-23 06:22] LABS: BASO # 0.1 10^3/uL (0.0-0.2); BASO % 0.7 % (0.0-1.0); EOS # 0.4 10^3/uL (0.0-0.5); EOS % 3.4 % (0.0-3.0); HEMATOCRIT 27.9 % (36.0-47.0); HEMOGLOBIN 9.1 g/dl (12.0-15.5); LYMPH # 1.6 10^3/uL (1.5-5.0); LYMPH % 12.8 % (24.0-44.0); MEAN CORPUSCULAR HEMOGLOBIN 31.3 pg (27.0-33.0); MEAN CORPUSCULAR HGB CONC 32.6 g/dl (32.0-36.5); MEAN CORPUSCULAR VOLUME 95.9 fl (80.0-96.0); MONO # 0.7 10^3/uL (0.0-0.8); MONO % 5.5 % (2.0-8.0); NEUTROPHILS # 9.7 10^3/uL (1.5-8.5); NEUTROPHILS % 77.1 % (36.0-66.0); PLATELET COUNT, AUTOMATED 364 10^3/uL (150-450); RED BLOOD COUNT 2.91 10^6/uL (4.00-5.40); WHITE BLOOD COUNT 12.6 10^3/uL (4.0-10.0)
[2022-08-23 06:42] LABS: BLOOD UREA NITROGEN 8 MG/DL (9-23); CALCIUM LEVEL 7.2 MG/DL (8.3-10.6); CARBON DIOXIDE LEVEL 25 MMOL/L (20-31); CHLORIDE LEVEL 109 MMOL/L (98-107); CREATININE FOR GFR 0.66 MG/DL (0.55-1.30); GLOMERULAR FILTRATION RATE > 60.0 (>39); GLUCOSE, FASTING 86 MG/DL (74-106); POTASSIUM SERUM 3.2 MMOL/L (3.5-5.1); SODIUM LEVEL 142 MMOL/L (136-145)
[2022-08-23] MEDS ORDERED: KCL 40MEQ in NS 1000ML 1,000 ML IV SCH (06:49)
[2022-08-23] MEDS: INSULIN LISPRO (NovoLOG) PER UNIT SC SCH ×4 (06:52→20:37)
[2022-08-23 08:00] VITALS: BP 158/84
[2022-08-23] MEDS: NEBIVOLOL 5 MG TAB (BYSTOLIC) PO SCH (09:21)
[2022-08-23] MEDS: SERTRALINE HCL 50 MG TAB PO SCH (09:22)
[2022-08-23] MEDS: ALVIMOPAN 12 MG CAPSULE (ENTEREG) PO SCH ×2 (09:22→20:39)
[2022-08-23] MEDS: ENOXAPARIN 40MG/0.4ML SYRINGE (J1650 PER 10MG) SC SCH (09:22)
[2022-08-23] MEDS: KCL 10MEQ/100ML SWI (KRUN) 10 MEQ in IV 1 EA IV SCH ×2 (11:29→13:25)
[2022-08-23 14:00] VITALS: BP 155/85
[2022-08-23] MEDS: PANTOPRAZOLE 40MG VIAL IV SCH (15:18)
[2022-08-23] MEDS: LATANOPROST 0.005% OPHTH SOLN 2.5 ML OU SCH (20:41)
[2022-08-23 21:34] VITALS: BP 144/80
[2022-08-24] MEDS: IPRATROPIUM 0.5MG/ALBUTEROL 2.5MG INH SOL UD 3ML (DUONEB) NEB SCH ×4 (01:08→19:40)
[2022-08-24] MEDS: PIPERACILLIN/TAZOBACTAM SOD 3.375 GM in D5W MINI-BAG PLUS 50 ML IV SCH ×4 (04:43→21:47)
[2022-08-24 06:00] VITALS: BP 143/67
[2022-08-24] MEDS: SODIUM CHLORIDE 0.9% INJ 10 ML SYR IV SCH ×2 (06:04→18:00)
[2022-08-24 06:25] LABS: BASO # 0.1 10^3/uL (0.0-0.2); BASO % 1.2 % (0.0-1.0); EOS # 0.5 10^3/uL (0.0-0.5); EOS % 5.5 % (0.0-3.0); HEMATOCRIT 27.6 % (36.0-47.0); HEMOGLOBIN 9.1 g/dl (12.0-15.5); LYMPH # 1.8 10^3/uL (1.5-5.0); LYMPH % 18.4 % (24.0-44.0); MEAN CORPUSCULAR HEMOGLOBIN 31.6 pg (27.0-33.0); MEAN CORPUSCULAR VOLUME 95.8 fl (80.0-96.0); MONO # 0.7 10^3/uL (0.0-0.8); NEUTROPHILS # 6.6 10^3/uL (1.5-8.5); NEUTROPHILS % 67.4 % (36.0-66.0); PLATELET COUNT, AUTOMATED 362 10^3/uL (150-450); RED BLOOD COUNT 2.88 10^6/uL (4.00-5.40); WHITE BLOOD COUNT 9.8 10^3/uL (4.0-10.0)
[2022-08-24 06:58] LABS: BLOOD UREA NITROGEN 6 MG/DL (9-23); CALCIUM LEVEL 7.3 MG/DL (8.3-10.6); CARBON DIOXIDE LEVEL 27 MMOL/L (20-31); CHLORIDE LEVEL 107 MMOL/L (98-107); CREATININE FOR GFR 0.65 MG/DL (0.55-1.30); GLOMERULAR FILTRATION RATE > 60.0 (>39); GLUCOSE, FASTING 95 MG/DL (74-106); POTASSIUM SERUM 3.1 MMOL/L (3.5-5.1); SODIUM LEVEL 141 MMOL/L (136-145)
[2022-08-24] MEDS: INSULIN LISPRO (NovoLOG) PER UNIT SC SCH ×4 (07:30→21:00)
[2022-08-24 07:37] VITALS: O2SAT 94
[2022-08-24 07:58] VITALS: BP 145/70
[2022-08-24] MEDS: KCL 10MEQ/100ML SWI (KRUN) 10 MEQ in IV 1 EA IV SCH ×4 (08:00→11:59)
[2022-08-24] MEDS: ALVIMOPAN 12 MG CAPSULE (ENTEREG) PO SCH ×2 (09:00→21:00)
[2022-08-24] MEDS: ENOXAPARIN 40MG/0.4ML SYRINGE (J1650 PER 10MG) SC SCH (09:28)
[2022-08-24] MEDS: NEBIVOLOL 5 MG TAB (BYSTOLIC) PO SCH (09:29)
[2022-08-24] MEDS: SERTRALINE HCL 50 MG TAB PO SCH (09:30)
[2022-08-24] MEDS: LOSARTAN 25 MG TAB PO SCH ×2 (09:30→21:47)
[2022-08-24] MEDS ORDERED: KCL 10MEQ/100ML SWI (KRUN) 10 MEQ in IV 1 EA IV SCH (13:25)
[2022-08-24] MEDS: ACETAMINOPHEN 325MG/10.15ML UDC PO PRN ×2 (13:33→21:46)
[2022-08-24 14:30] VITALS: BP 139/69
[2022-08-24] MEDS: PANTOPRAZOLE 40MG VIAL IV SCH (16:11)
[2022-08-24] MEDS: LATANOPROST 0.005% OPHTH SOLN 2.5 ML OU SCH (21:47)
[2022-08-24 22:00] VITALS: BP 139/73
[2022-08-25] MEDS: IPRATROPIUM 0.5MG/ALBUTEROL 2.5MG INH SOL UD 3ML (DUONEB) NEB SCH ×4 (01:16→19:12)
[2022-08-25] MEDS: PIPERACILLIN/TAZOBACTAM SOD 3.375 GM in D5W MINI-BAG PLUS 50 ML IV SCH ×4 (04:51→21:06)
[2022-08-25 05:56] LABS: BASO # 0.1 10^3/uL (0.0-0.2); BASO % 1.2 % (0.0-1.0); EOS # 0.5 10^3/uL (0.0-0.5); EOS % 5.6 % (0.0-3.0); HEMATOCRIT 29.2 % (36.0-47.0); HEMOGLOBIN 9.7 g/dl (12.0-15.5); LYMPH # 2.2 10^3/uL (1.5-5.0); LYMPH % 26.7 % (24.0-44.0); MEAN CORPUSCULAR HEMOGLOBIN 31.3 pg (27.0-33.0); MEAN CORPUSCULAR HGB CONC 33.2 g/dl (32.0-36.5); MEAN CORPUSCULAR VOLUME 94.2 fl (80.0-96.0); MONO # 0.7 10^3/uL (0.0-0.8); MONO % 8.7 % (2.0-8.0); NEUTROPHILS # 4.7 10^3/uL (1.5-8.5); NEUTROPHILS % 57.3 % (36.0-66.0); PLATELET COUNT, AUTOMATED 383 10^3/uL (150-450); WHITE BLOOD COUNT 8.2 10^3/uL (4.0-10.0)
[2022-08-25 06:00] VITALS: BP 162/81
[2022-08-25] MEDS: SODIUM CHLORIDE 0.9% INJ 10 ML SYR IV SCH ×2 (06:15→17:20)
[2022-08-25 06:25] LABS: BLOOD UREA NITROGEN < 5 MG/DL (9-23); CALCIUM LEVEL 7.6 MG/DL (8.3-10.6); CARBON DIOXIDE LEVEL 28 MMOL/L (20-31); CHLORIDE LEVEL 105 MMOL/L (98-107); CREATININE FOR GFR 0.65 MG/DL (0.55-1.30); GLOMERULAR FILTRATION RATE > 60.0 (>39); GLUCOSE, FASTING 96 MG/DL (74-106); POTASSIUM SERUM 2.9 MMOL/L (3.5-5.1); SODIUM LEVEL 141 MMOL/L (136-145)
[2022-08-25] MEDS ORDERED: POTASSIUM CHLORIDE 10% LIQ 20MEQ/15ML UDC PO ONE ×2 (07:00→08:00)
[2022-08-25 07:18] LABS: MAGNESIUM LEVEL 1.6 MG/DL (1.8-2.4)
[2022-08-25] MEDS: INSULIN LISPRO (NovoLOG) PER UNIT SC SCH ×4 (07:29→21:00)
[2022-08-25] MEDS ORDERED: MAG SULF 1GM/100ML (MAG RUN) 1 GM in IV 1 EA IV ONE ×2 (08:00→13:00)
[2022-08-25] MEDS: ENOXAPARIN 40MG/0.4ML SYRINGE (J1650 PER 10MG) SC SCH (08:16)
[2022-08-25] MEDS: NEBIVOLOL 5 MG TAB (BYSTOLIC) PO SCH (08:18)
[2022-08-25] MEDS: SERTRALINE HCL 50 MG TAB PO SCH (08:18)
[2022-08-25] MEDS: LOSARTAN 25 MG TAB PO SCH ×2 (08:19→21:07)
[2022-08-25] MEDS: ALVIMOPAN 12 MG CAPSULE (ENTEREG) PO SCH ×3 (08:24→21:07)
[2022-08-25] MEDS: KCL 10MEQ/100ML SWI (KRUN) 10 MEQ in IV 1 EA IV SCH ×4 (09:54→12:34)
[2022-08-25 14:35] LABS: BLOOD UREA NITROGEN < 5 MG/DL (9-23); CALCIUM LEVEL 7.4 MG/DL (8.3-10.6); CARBON DIOXIDE LEVEL 29 MMOL/L (20-31); CHLORIDE LEVEL 105 MMOL/L (98-107); CREATININE FOR GFR 0.61 MG/DL (0.55-1.30); GLOMERULAR FILTRATION RATE > 60.0 (>39); GLUCOSE, FASTING 109 MG/DL (74-106); MAGNESIUM LEVEL 2.1 MG/DL (1.8-2.4); SODIUM LEVEL 138 MMOL/L (136-145)
[2022-08-25] MEDS: PANTOPRAZOLE 40MG VIAL IV SCH (15:02)
[2022-08-25 15:14] VITALS: BP 135/76
[2022-08-25] MEDS: ACETAMINOPHEN 325MG/10.15ML UDC PO PRN (19:54)
[2022-08-25] MEDS: LATANOPROST 0.005% OPHTH SOLN 2.5 ML OU SCH (21:07)
[2022-08-25 22:00] VITALS: BP 136/77
[2022-08-25] MEDS: SIMETHICONE 80MG CHEW TAB PO PRN (23:16)
[2022-08-26] MEDS: IPRATROPIUM 0.5MG/ALBUTEROL 2.5MG INH SOL UD 3ML (DUONEB) NEB SCH ×4 (01:43→19:23)
[2022-08-26] MEDS: PIPERACILLIN/TAZOBACTAM SOD 3.375 GM in D5W MINI-BAG PLUS 50 ML IV SCH ×4 (04:59→21:30)
[2022-08-26] MEDS: SODIUM CHLORIDE 0.9% INJ 10 ML SYR IV SCH ×2 (04:59→17:56)
[2022-08-26 05:47] LABS: BASO # 0.1 10^3/uL (0.0-0.2); BASO % 1.2 % (0.0-1.0); EOS # 0.5 10^3/uL (0.0-0.5); EOS % 5.1 % (0.0-3.0); LYMPH # 2.3 10^3/uL (1.5-5.0); LYMPH % 25.4 % (24.0-44.0); MEAN CORPUSCULAR HEMOGLOBIN 30.6 pg (27.0-33.0); MEAN CORPUSCULAR HGB CONC 32.3 g/dl (32.0-36.5); MEAN CORPUSCULAR VOLUME 94.8 fl (80.0-96.0); MONO # 0.9 10^3/uL (0.0-0.8); MONO % 9.5 % (2.0-8.0); NEUTROPHILS # 5.3 10^3/uL (1.5-8.5); NEUTROPHILS % 58.5 % (36.0-66.0); PLATELET COUNT, AUTOMATED 376 10^3/uL (150-450); RED BLOOD COUNT 3.27 10^6/uL (4.00-5.40); WHITE BLOOD COUNT 9.1 10^3/uL (4.0-10.0)
[2022-08-26 06:00] VITALS: BP 136/77
[2022-08-26 06:22] LABS: BLOOD UREA NITROGEN < 5 MG/DL (9-23); CALCIUM LEVEL 7.7 MG/DL (8.3-10.6); CARBON DIOXIDE LEVEL 27 MMOL/L (20-31); CHLORIDE LEVEL 104 MMOL/L (98-107); CREATININE FOR GFR 0.65 MG/DL (0.55-1.30); GLOMERULAR FILTRATION RATE > 60.0 (>39); GLUCOSE, FASTING 95 MG/DL (74-106); POTASSIUM SERUM 3.4 MMOL/L (3.5-5.1); SODIUM LEVEL 139 MMOL/L (136-145)
[2022-08-26] MEDS: INSULIN LISPRO (NovoLOG) PER UNIT SC SCH ×4 (07:30→21:00)
[2022-08-26] MEDS: NEBIVOLOL 5 MG TAB (BYSTOLIC) PO SCH (08:27)
[2022-08-26] MEDS: ENOXAPARIN 40MG/0.4ML SYRINGE (J1650 PER 10MG) SC SCH (08:27)
[2022-08-26] MEDS: SERTRALINE HCL 50 MG TAB PO SCH (08:27)
[2022-08-26] MEDS: PANTOPRAZOLE 40MG TAB (PROTONIX) PO SCH (08:27)
[2022-08-26] MEDS: ALVIMOPAN 12 MG CAPSULE (ENTEREG) PO SCH ×2 (08:27→21:31)
[2022-08-26] MEDS: KCL 10MEQ/100ML SWI (KRUN) 10 MEQ in IV 1 EA IV SCH ×4 (08:28→12:25)
[2022-08-26] MEDS: LOSARTAN 25 MG TAB PO SCH ×2 (08:32→21:31)
[2022-08-26] MEDS: NYSTATIN 500,000U/5ML SUSP UDC SS SCH ×3 (12:24→21:31)
[2022-08-26 14:00] VITALS: BP 151/72
[2022-08-26 14:55] VITALS: O2SAT 93
[2022-08-26] MEDS: ACETAMINOPHEN 325MG/10.15ML UDC PO PRN (16:20)
[2022-08-26] MEDS: SIMETHICONE 80MG CHEW TAB PO PRN ×2 (16:20→21:30)
[2022-08-26 21:27] VITALS: BP 148/72
[2022-08-26 21:29] VITALS: BP 148/72
[2022-08-26] MEDS: LATANOPROST 0.005% OPHTH SOLN 2.5 ML OU SCH (21:31)
[2022-08-27] MEDS: IPRATROPIUM 0.5MG/ALBUTEROL 2.5MG INH SOL UD 3ML (DUONEB) NEB SCH ×3 (02:00→14:00)
[2022-08-27] MEDS: SODIUM CHLORIDE 0.9% INJ 10 ML SYR IV SCH (05:00)
[2022-08-27] MEDS: PIPERACILLIN/TAZOBACTAM SOD 3.375 GM in D5W MINI-BAG PLUS 50 ML IV SCH ×2 (05:00→09:47)
[2022-08-27 06:01] LABS: BASO # 0.1 10^3/uL (0.0-0.2); BASO % 1.2 % (0.0-1.0); EOS # 0.5 10^3/uL (0.0-0.5); EOS % 5.5 % (0.0-3.0); HEMATOCRIT 31.2 % (36.0-47.0); HEMOGLOBIN 10.2 g/dl (12.0-15.5); LYMPH # 2.3 10^3/uL (1.5-5.0); MEAN CORPUSCULAR HEMOGLOBIN 31.1 pg (27.0-33.0); MEAN CORPUSCULAR HGB CONC 32.7 g/dl (32.0-36.5); MEAN CORPUSCULAR VOLUME 95.1 fl (80.0-96.0); MONO # 0.8 10^3/uL (0.0-0.8); MONO % 9.3 % (2.0-8.0); NEUTROPHILS % 57.7 % (36.0-66.0); PLATELET COUNT, AUTOMATED 364 10^3/uL (150-450); RED BLOOD COUNT 3.28 10^6/uL (4.00-5.40); WHITE BLOOD COUNT 8.7 10^3/uL (4.0-10.0)
[2022-08-27 06:30] VITALS: BP 149/70
[2022-08-27 07:30] LABS: BLOOD UREA NITROGEN 6 MG/DL (9-23); CALCIUM LEVEL 7.9 MG/DL (8.3-10.6); CARBON DIOXIDE LEVEL 27 MMOL/L (20-31); CHLORIDE LEVEL 105 MMOL/L (98-107); CREATININE FOR GFR 0.74 MG/DL (0.55-1.30); GLOMERULAR FILTRATION RATE > 60.0 (>39); GLUCOSE, FASTING 96 MG/DL (74-106); POTASSIUM SERUM 3.8 MMOL/L (3.5-5.1); SODIUM LEVEL 139 MMOL/L (136-145)
[2022-08-27] MEDS: INSULIN LISPRO (NovoLOG) PER UNIT SC SCH ×2 (07:30→12:00)
[2022-08-27 08:00] VITALS: BP_SYST 148; BP_SYST 149; BP_DIAS 72
[2022-08-27] MEDS: NYSTATIN 500,000U/5ML SUSP UDC SS SCH (09:00)
[2022-08-27 09:45] VITALS: BP 148/72
[2022-08-27] MEDS: NEBIVOLOL 5 MG TAB (BYSTOLIC) PO SCH (09:45)
[2022-08-27] MEDS: ENOXAPARIN 40MG/0.4ML SYRINGE (J1650 PER 10MG) SC SCH (09:46)
[2022-08-27] MEDS: ALVIMOPAN 12 MG CAPSULE (ENTEREG) PO SCH (09:46)
[2022-08-27] MEDS: PANTOPRAZOLE 40MG TAB (PROTONIX) PO SCH (09:47)
[2022-08-27] MEDS: SERTRALINE HCL 50 MG TAB PO SCH (09:47)
[2022-08-27] MEDS: LOSARTAN 25 MG TAB PO SCH (09:48)
[2022-08-27] MEDS ORDERED: BYST5TAB2 PO (10:51)
[2022-08-27] MEDS ORDERED: ACET325S6 PO (10:51)
[2022-08-27] MEDS ORDERED: ALVI12CA PO (10:51)
[2022-08-27] MEDS ORDERED: SIME80TA16 PO (10:51)
[2022-08-27] MEDS ORDERED: PANT40TA29 PO (10:51)
[2022-08-27 14:00] VITALS: BP 151/70
== END 2022-08-27 17:05 | disposition home or self-care (01) | DRG 329 ==
LOC: M ED 15:32 → M ED INP 21:20 → M MS5PR 23:45
PROVIDERS: ADMIT Internal Medicine; ATTEND Family Medicine
PROC: 0DBN0ZZ Excision of Sigmoid Colon, Open Approach (ICD-10-PCS; 2022-08-20)
PROC: 0D1M0Z4 Bypass Descending Colon to Cutaneous, Open Approach (ICD-10-PCS; principal; 2022-08-20 16:00)
PROC: 02HV33Z Insertion of Infusion Device into Superior Vena Cava, Percutaneous Approach (ICD-10-PCS; 2022-08-22)
DX: K57.20 Diverticulitis of large intestine with perforation and abscess without bleeding (principal); J18.9 Pneumonia, unspecified organism; K63.2 Fistula of intestine; J98.11 Atelectasis; B37.0 Candidal stomatitis; I10 Essential (primary) hypertension; E11.9 Type 2 diabetes mellitus without complications; K21.9 Gastro-esophageal reflux disease without esophagitis; E87.6 Hypokalemia; E83.42 Hypomagnesemia; G43.909 Migraine, unspecified, not intractable, without status migrainosus; Z88.2 Allergy status to sulfonamides; Z79.899 Other long term (current) drug therapy; M19.90 Unspecified osteoarthritis, unspecified site; F41.9 Anxiety disorder, unspecified; K76.0 Fatty (change of) liver, not elsewhere classified

== ENCOUNTER 2023-01-01 13:54 | Emergency (ER) | payer MEDICARE ==
[~2023-01-01] VITALS: Ht 157.5 cm; Wt 66.4 kg
[~2023-01-01 13:54] MED LIST changes: -ELIQ5TAB4 PO; -LOSA100T5 PO; -LOSA25TA13 PO; -PROT1TAB2 PO
[2023-01-01] MEDS ORDERED: LOSA100T5 PO (14:07)
[2023-01-01] MEDS ORDERED: PROT1TAB2 PO (14:07)
[2023-01-01] MEDS ORDERED: LOSA25TA13 PO (14:07)
[2023-01-01] MEDS ORDERED: ELIQ5TAB4 PO (15:26)
[2023-01-01 15:35] VITALS: BP 133/94; TEMP 97.5; O2SAT 97
== END 2023-01-01 15:40 | disposition home or self-care (01) ==
LOC: M ED 13:54
DX: I82.402 Acute embolism and thrombosis of unspecified deep veins of left lower extremity (principal); E11.9 Type 2 diabetes mellitus without complications; I10 Essential (primary) hypertension; F41.9 Anxiety disorder, unspecified; E55.9 Vitamin D deficiency, unspecified; I82.412 Acute embolism and thrombosis of left femoral vein; I82.432 Acute embolism and thrombosis of left popliteal vein; I82.442 Acute embolism and thrombosis of left tibial vein; I82.890 Acute embolism and thrombosis of other specified veins; Z88.2 Allergy status to sulfonamides; Z79.01 Long term (current) use of anticoagulants; Z79.811 Long term (current) use of aromatase inhibitors; Z79.899 Other long term (current) drug therapy

== ENCOUNTER → 2023-01-01 | Outpatient (CLI) | payer MEDICARE ==
[~2023-01-01] MED LIST changes: +ACET325S6 PO; +ALVI12CA PO; +AZEL0.055; +C 50TAB PO; +ELIQ5TAB4 PO; +FLUT50SP17; -FLUTISP; +IBUP-1720 PO; +LOSA100T5 PO; +LOSA25TA13 PO; +NEBI10TA PO; +NITR4TASL SL; +PANT40TA29 PO; +PROT1TAB2 PO; +SIME80TA16 PO; +VITA-148 PO; +VITA500T40 PO; +XALA0.007 OU
== END ==
LOC: M RAD 12:14
PROVIDERS: ATTEND Nurse Practitioner Adult Health
DX: I82.412 Acute embolism and thrombosis of left femoral vein (principal); I82.432 Acute embolism and thrombosis of left popliteal vein; I82.442 Acute embolism and thrombosis of left tibial vein; I82.890 Acute embolism and thrombosis of other specified veins

== ENCOUNTER 2023-06-05 08:48 | Day surgery (SDC) | payer MEDICARE ==
[~2023-06-05] VITALS: Ht 157.5 cm; Wt 72.7 kg
[~2023-06-05 08:48] MED LIST changes: +ELIQ5TAB PO; +ELIQ5TAB4 PO; -FLUT50SP17; +FLUTISP; +LOSA100T5 PO; +LOSA25TA13 PO; +NS 1,000 ML IV ONE; +PROT1TAB2 PO
[2023-06-05] MEDS ORDERED: propofoL 200 MG/20 ML VIAL As Ordered ONE ×2 (10:00→10:16)
[2023-06-05 10:26] VITALS: TEMP 96.3
[2023-06-05 10:43] VITALS: BP 139/66; O2SAT 96
[2023-06-05] MEDS ORDERED: PHENYLephrine 500MCG 5ML (100MCG/ML) SYRINGE As Ordered ONE (11:06)
== END 2023-06-05 10:50 | disposition home or self-care (01) ==
LOC: M OPP 08:48
PROVIDERS: ATTEND Surgery
DX: D12.6 Benign neoplasm of colon, unspecified (principal); K57.30 Diverticulosis of large intestine without perforation or abscess without bleeding; K57.32 Diverticulitis of large intestine without perforation or abscess without bleeding; Z09 Encounter for follow-up examination after completed treatment for conditions other than malignant neoplasm; Z87.891 Personal history of nicotine dependence; Z79.01 Long term (current) use of anticoagulants; Z79.1 Long term (current) use of non-steroidal anti-inflammatories (NSAID); Z79.52 Long term (current) use of systemic steroids; Z79.891 Long term (current) use of opiate analgesic; Z79.899 Other long term (current) drug therapy
CPT/HCPCS: 45385; 88305; J2371

== ENCOUNTER 2023-09-12 06:04 | Inpatient (IN) | payer MEDICARE ==
[~2023-09-12] VITALS: Ht 157.5 cm; Wt 78.8 kg
[~2023-09-12 06:04] MED LIST changes: +EQL50TAB2 PO; -NS 1,000 ML IV ONE
[2023-09-12] MEDS ORDERED: LR 1,000 ML IV SCH ×2 (06:50→14:25)
[2023-09-12] MEDS: metroNIDAZOLE 500 MG in IV 1 EA IV ONE (07:05)
[2023-09-12] MEDS ORDERED: propofoL 200 MG/20 ML VIAL As Ordered ONE (07:07)
[2023-09-12] MEDS ORDERED: PHENYLephrine 500MCG 5ML (100MCG/ML) SYRINGE As Ordered ONE (07:07)
[2023-09-12] MEDS ORDERED: ONDANSETRON 4MG 2ML VIAL As Ordered ONE (07:07)
[2023-09-12] MEDS ORDERED: ROCURONIUM BROMIDE 50MG/5ML VIAL As Ordered ONE (07:07)
[2023-09-12] MEDS ORDERED: LIDOCAINE 2% 100MG/5ML SDV (FOR ANES.) As Ordered ONE (07:07)
[2023-09-12] MEDS ORDERED: ePHEDrine SULFATE 25 MG/5 ML(5MG/ML) SYRINGE As Ordered ONE (07:07)
[2023-09-12] MEDS ORDERED: SUGAMMADEX SODIUM 500 MG/5 ML VIAL (BRIDION) As Ordered ONE (07:08)
[2023-09-12] MEDS ORDERED: fentaNYL 100 MCG/2 ML INJECTION As Ordered ONE (07:08)
[2023-09-12] MEDS ORDERED: dexmedeTOMIDine (4MCG/ML)200MCG/50ML BTL (PRECEDEX) As Ordered ONE (07:08)
[2023-09-12] MEDS ORDERED: FLON1SPR (07:24)
[2023-09-12] MEDS ORDERED: HOME MED LIST COMPLETE! XX SCH (07:25)
[2023-09-12] MEDS: ceFAZolin SOD 2 GM in IV 1 EA IV ONE (07:35)
[2023-09-12] MEDS ORDERED: ESMOLOL INJ 100MG/10ML VIAL As Ordered ONE (07:51)
[2023-09-12] MEDS ORDERED: HYDROmorphone HCL 2MG/ML 1ML VIAL As Ordered ONE (08:10)
[2023-09-12] MEDS ORDERED: ACETAMINOPHEN 1000MG 100ML IV BAG As Ordered ONE (08:16)
[2023-09-12] MEDS ORDERED: KETOROLAC 60MG 2ML VIAL As Ordered ONE (08:17)
[2023-09-12] MEDS: GLUCAGON INJ 1MG VIAL As Ordered ONE (09:12)
[2023-09-12] MEDS ORDERED: VASOPRESSIN INJ 20UNITS/ML 1ML VIAL As Ordered ONE (12:28)
[2023-09-12] MEDS: ceFAZolin 2 GM/D5W 50 ML IV BAG As Ordered ONE (12:44)
[2023-09-12] MEDS ORDERED: fentaNYL 100 MCG/2 ML INJECTION IV PRN (14:25)
[2023-09-12] MEDS ORDERED: oxyCODONE 5MG TAB PO PRN (14:25)
[2023-09-12] MEDS ORDERED: ONDANSETRON 4MG 2ML VIAL IV PRN (14:25)
[2023-09-12] MEDS ORDERED: NALOXONE INJ 0.4MG/1ML VIAL As Ordered ONE (14:49)
[2023-09-12] MEDS ORDERED: IPRATROPIUM 0.5MG/ALBUTEROL 2.5MG INH SOL UD 3ML (DUONEB) NEB PRN (15:20)
[2023-09-12] MEDS ORDERED: MORPHINE 2 MG/ML 1ML VIAL IV PRN (15:20)
[2023-09-12] MEDS ORDERED: MORPHINE 4 MG/ML 1ML VIAL IV PRN (15:20)
[2023-09-12] MEDS: HYDROMORPHONE HCL 0.5 MG/ 0.5 ML SYRINGE IV PRN (15:25)
[2023-09-12 16:45] VITALS: BP 116/64; TEMP 97.3; O2SAT 98
[2023-09-12] MEDS: metroNIDAZOLE 500 MG in IV 1 EA IV SCH (17:05)
[2023-09-12] MEDS: NS 1,000 ML IV SCH (17:05)
[2023-09-12] MEDS: CIPROFLOXACIN 400 MG in IV 1 EA IV SCH (18:07)
[2023-09-12] MEDS: ONDANSETRON 4MG 2ML VIAL IV PRN (18:07)
[2023-09-12 20:00] VITALS: BP 104/51; TEMP 97.3; O2SAT 94
[2023-09-12] MEDS: KETOROLAC 30 MG/ML 1ML VIAL IV SCH (20:41)
[2023-09-12] MEDS: LATANOPROST 0.005% OPHTH SOLN 2.5 ML OU SCH (20:41)
[2023-09-12] MEDS: IPRATROPIUM 0.5MG/ALBUTEROL 2.5MG INH SOL UD 3ML (DUONEB) NEB SCH (20:57)
[2023-09-12 21:00] VITALS: BP 104/52; TEMP 97.5; O2SAT 93
[2023-09-12 21:01] VITALS: O2SAT 99
[2023-09-13] VITALS (8 sets, daily range): BP systolic 90–127; BP diastolic 50–99; TEMP 97.3–98.9; O2SAT 92–98
[2023-09-13] MEDS: MORPHINE 2 MG/ML 1ML VIAL IV PRN (06:48)
[2023-09-13 06:55] LABS: HEMATOCRIT 32.5 % (36.0-47.0); HEMOGLOBIN 10.9 g/dl (12.0-15.5); MEAN CORPUSCULAR VOLUME 97.3 fl (80.0-96.0); RED BLOOD COUNT 3.34 10^6/uL (4.00-5.40); WHITE BLOOD COUNT 13.9 10^3/uL (4.0-10.0)
[2023-09-13 06:56] LABS: MEAN CORPUSCULAR HEMOGLOBIN 32.6 pg (27.0-33.0); MEAN CORPUSCULAR HGB CONC 33.5 g/dl (32.0-36.5); PLATELET COUNT, AUTOMATED 176 10^3/uL (150-450)
[2023-09-13 07:12] LABS: CREATININE FOR GFR 1.17 MG/DL (0.55-1.30); GLOMERULAR FILTRATION RATE 47.3 (>32); POTASSIUM SERUM 4.3 MMOL/L (3.5-5.1)
[2023-09-13] MEDS: LOSARTAN 50MG TABLET PO SCH (09:00)
[2023-09-13] MEDS: SERTRALINE HCL 25 MG TABLET PO SCH (09:52)
[2023-09-13] MEDS: ROSUVASTATIN 10 MG TAB (CRESTOR) PO SCH (09:52)
[2023-09-13] MEDS: PANTOPRAZOLE 40MG VIAL IV SCH (09:54)
[2023-09-13] MEDS: ALVIMOPAN 12 MG CAPSULE (ENTEREG) PO SCH (10:28)
[2023-09-13] MEDS: ENOXAPARIN 30MG/0.3ML SYRINGE (J1650 PER 10MG) SC SCH (11:42)
[2023-09-14] VITALS (8 sets, daily range): BP systolic 99–138; BP diastolic 61–74; TEMP 97.5–98.6; O2SAT 91–96
[2023-09-14 07:15] LABS: HEMATOCRIT 31.6 % (36.0-47.0); HEMOGLOBIN 10.1 g/dl (12.0-15.5); PLATELET COUNT, AUTOMATED 149 10^3/uL (150-450); RED BLOOD COUNT 3.16 10^6/uL (4.00-5.40)
[2023-09-14 07:37] LABS: CALCIUM LEVEL 7.8 MG/DL (8.3-10.6); CREATININE FOR GFR 1.28 MG/DL (0.55-1.30); GLOMERULAR FILTRATION RATE 42.6 (>32); POTASSIUM SERUM 4.2 MMOL/L (3.5-5.1)
[2023-09-15 02:04] VITALS: BP 130/69; TEMP 98.1; O2SAT 92
[2023-09-15 05:17] VITALS: BP 128/68; TEMP 98.1; O2SAT 95
[2023-09-15 06:42] LABS: HEMATOCRIT 29.8 % (36.0-47.0); HEMOGLOBIN 9.6 g/dl (12.0-15.5); MEAN CORPUSCULAR HEMOGLOBIN 32.4 pg (27.0-33.0); MEAN CORPUSCULAR HGB CONC 32.2 g/dl (32.0-36.5); MEAN CORPUSCULAR VOLUME 100.7 fl (80.0-96.0); PLATELET COUNT, AUTOMATED 164 10^3/uL (150-450); RED BLOOD COUNT 2.96 10^6/uL (4.00-5.40); WHITE BLOOD COUNT 9.5 10^3/uL (4.0-10.0)
[2023-09-15 06:44] LABS: CALCIUM LEVEL 7.8 MG/DL (8.3-10.6); CREATININE FOR GFR 1.16 MG/DL (0.55-1.30); GLOMERULAR FILTRATION RATE 47.7 (>32); POTASSIUM SERUM 4.2 MMOL/L (3.5-5.1)
[2023-09-15 07:52] VITALS: O2SAT 94
[2023-09-15] MEDS ORDERED: PILL CUTTER 1 EACH XX ONE (08:40)
[2023-09-15 14:42] VITALS: BP 121/69; TEMP 97.7; O2SAT 92
[2023-09-15 19:30] VITALS: BP 137/52; TEMP 98.1; O2SAT 96
[2023-09-15] MEDS: SODIUM CHLORIDE NASAL 0.65% SPRAY BTL (OCEAN) PRN (23:00)
[2023-09-16 05:17] VITALS: BP 137/74; TEMP 97.9; O2SAT 93
[2023-09-16 07:22] LABS: HEMATOCRIT 30.9 % (36.0-47.0); MEAN CORPUSCULAR HEMOGLOBIN 32.5 pg (27.0-33.0); MEAN CORPUSCULAR HGB CONC 32.4 g/dl (32.0-36.5); MEAN CORPUSCULAR VOLUME 100.3 fl (80.0-96.0); PLATELET COUNT, AUTOMATED 190 10^3/uL (150-450); RED BLOOD COUNT 3.08 10^6/uL (4.00-5.40); WHITE BLOOD COUNT 8.6 10^3/uL (4.0-10.0)
[2023-09-16 07:51] LABS: CALCIUM LEVEL 7.9 MG/DL (8.3-10.6); CREATININE FOR GFR 1.07 MG/DL (0.55-1.30); GLOMERULAR FILTRATION RATE 52.4 (>32); POTASSIUM SERUM 3.9 MMOL/L (3.5-5.1)
[2023-09-16 14:10] VITALS: BP 133/68; TEMP 98.1; O2SAT 95
[2023-09-16] MEDS: metroNIDAZOLE (FLAGYL) 500MG TABLET PO SCH (14:52)
[2023-09-16] MEDS: CIPROFLOXACIN 500MG TABLET PO SCH (17:13)
[2023-09-16] MEDS ORDERED: LEVALBUTEROL 1.25MG 0.5ML CONCENTRATE NEB INH PRN (20:25)
[2023-09-16 22:00] VITALS: BP 160/99; TEMP 97; O2SAT 96
[2023-09-17 02:00] VITALS: BP 152/74; TEMP 97.2; O2SAT 96
[2023-09-17] MEDS: LEVALBUTEROL 1.25MG 0.5ML CONCENTRATE NEB INH SCH (02:44)
[2023-09-17 06:15] VITALS: BP 153/77; TEMP 97.3; O2SAT 94
[2023-09-17 07:35] LABS: HEMATOCRIT 32.7 % (36.0-47.0); HEMOGLOBIN 10.9 g/dl (12.0-15.5); MEAN CORPUSCULAR HEMOGLOBIN 32.4 pg (27.0-33.0); MEAN CORPUSCULAR HGB CONC 33.3 g/dl (32.0-36.5); MEAN CORPUSCULAR VOLUME 97.3 fl (80.0-96.0); PLATELET COUNT, AUTOMATED 204 10^3/uL (150-450); RED BLOOD COUNT 3.36 10^6/uL (4.00-5.40)
[2023-09-17 08:02] LABS: CALCIUM LEVEL 8.4 MG/DL (8.3-10.6); CREATININE FOR GFR 1.06 MG/DL (0.55-1.30); POTASSIUM SERUM 3.6 MMOL/L (3.5-5.1)
[2023-09-17 15:35] VITALS: BP 137/70; TEMP 97.3; O2SAT 96
[2023-09-17 22:00] VITALS: BP 167/98; TEMP 97; O2SAT 97
[2023-09-17 22:58] VITALS: BP 159/85
[2023-09-18 02:00] VITALS: BP 146/79; TEMP 97.7; O2SAT 94
[2023-09-18 06:00] VITALS: BP 166/90; TEMP 97.7; O2SAT 96
[2023-09-18 07:02] VITALS: BP 160/86
[2023-09-18 07:21] LABS: HEMATOCRIT 33.4 % (36.0-47.0); HEMOGLOBIN 11.3 g/dl (12.0-15.5); MEAN CORPUSCULAR HEMOGLOBIN 32.5 pg (27.0-33.0); MEAN CORPUSCULAR HGB CONC 33.8 g/dl (32.0-36.5); PLATELET COUNT, AUTOMATED 224 10^3/uL (150-450); RED BLOOD COUNT 3.48 10^6/uL (4.00-5.40); WHITE BLOOD COUNT 7.7 10^3/uL (4.0-10.0)
[2023-09-18 07:49] LABS: CALCIUM LEVEL 8.4 MG/DL (8.3-10.6); CREATININE FOR GFR 1.04 MG/DL (0.55-1.30); GLOMERULAR FILTRATION RATE 54.1 (>32); POTASSIUM SERUM 3.9 MMOL/L (3.5-5.1)
[2023-09-18] MEDS: traMADol 50 MG TAB PO PRN (14:30)
[2023-09-18 15:01] VITALS: BP 154/83; TEMP 97.2; O2SAT 93
[2023-09-18 21:07] VITALS: BP 151/82; TEMP 97.9; O2SAT 93
[2023-09-19 01:45] VITALS: BP 150/82; TEMP 97.9; O2SAT 94
[2023-09-19 05:37] VITALS: BP 138/79; TEMP 97.3; O2SAT 95
[2023-09-19 07:53] LABS: HEMATOCRIT 32.8 % (36.0-47.0); HEMOGLOBIN 10.9 g/dl (12.0-15.5); MEAN CORPUSCULAR HEMOGLOBIN 32.2 pg (27.0-33.0); MEAN CORPUSCULAR HGB CONC 33.2 g/dl (32.0-36.5); PLATELET COUNT, AUTOMATED 225 10^3/uL (150-450); RED BLOOD COUNT 3.38 10^6/uL (4.00-5.40); WHITE BLOOD COUNT 8.2 10^3/uL (4.0-10.0)
[2023-09-19 08:24] LABS: CALCIUM LEVEL 8.5 MG/DL (8.3-10.6); CREATININE FOR GFR 1.01 MG/DL (0.55-1.30); POTASSIUM SERUM 3.6 MMOL/L (3.5-5.1)
[2023-09-19 14:52] VITALS: BP 148/87; TEMP 97.3; O2SAT 94
[2023-09-19 14:53] VITALS: TEMP 97.3; O2SAT 94
[2023-09-19 21:07] VITALS: BP 143/68; TEMP 97.9; O2SAT 93
[2023-09-20 02:00] VITALS: BP 141/62; TEMP 97; O2SAT 94
[2023-09-20 06:00] VITALS: BP 140/67; TEMP 97.2; O2SAT 95
[2023-09-20] MEDS ORDERED: PERCOCET PO (09:29)
[2023-09-20 09:30] VITALS: BP 134/67
== END 2023-09-20 13:05 | disposition home health service (06) | DRG 331 ==
LOC: M OR 06:04 → M MS5PR 16:30
PROVIDERS: ADMIT Surgery; ATTEND Surgery
PROC: 0D1 Gastrointestinal System, Bypass (ICD-10-PCS; 2023-09-12)
PROC: 0DTN4ZZ Resection of Sigmoid Colon, Percutaneous Endoscopic Approach (ICD-10-PCS; principal; 2023-09-12 07:30)
PROC: 0DBP4ZZ Excision of Rectum, Percutaneous Endoscopic Approach (ICD-10-PCS; 2023-09-12 07:30)
DX: Z43.3 Encounter for attention to colostomy (principal); E11.9 Type 2 diabetes mellitus without complications; I10 Essential (primary) hypertension; E78.00 Pure hypercholesterolemia, unspecified; K57.30 Diverticulosis of large intestine without perforation or abscess without bleeding; M19.90 Unspecified osteoarthritis, unspecified site; G43.909 Migraine, unspecified, not intractable, without status migrainosus; F41.9 Anxiety disorder, unspecified; Z87.891 Personal history of nicotine dependence; Z79.899 Other long term (current) drug therapy; Z88.2 Allergy status to sulfonamides; K21.9 Gastro-esophageal reflux disease without esophagitis

== ENCOUNTER 2023-10-10 20:28 | Inpatient (IN) | payer MEDICARE ==
[~2023-10-10] VITALS: Ht 157.5 cm; Wt 69.8 kg
[~2023-10-10 20:28] MED LIST changes: +FLON1SPR; +PERCOCET PO; +ROSU5TAB40 PO; -ROSU5TAB5 PO
[2023-10-10 21:47] LABS: BASO # 0.1 10^3/uL (0.0-0.2); BASO % 0.5 % (0.0-1.0); EOS # 0.1 10^3/uL (0.0-0.5); EOS % 0.7 % (0.0-3.0); HEMATOCRIT 35.7 % (36.0-47.0); HEMOGLOBIN 11.9 g/dl (12.0-15.5); LYMPH # 1.4 10^3/uL (1.5-5.0); LYMPH % 9.4 % (24.0-44.0); MEAN CORPUSCULAR HEMOGLOBIN 31.8 pg (27.0-33.0); MEAN CORPUSCULAR HGB CONC 33.3 g/dl (32.0-36.5); MEAN CORPUSCULAR VOLUME 95.5 fl (80.0-96.0); MONO # 1.6 10^3/uL (0.0-0.8); MONO % 10.2 % (2.0-8.0); NEUTROPHILS % 78.8 % (36.0-66.0); PLATELET COUNT, AUTOMATED 232 10^3/uL (150-450); RED BLOOD COUNT 3.74 10^6/uL (4.00-5.40); WHITE BLOOD COUNT 15.3 10^3/uL (4.0-10.0)
[2023-10-10] MEDS: NS 1,000 ML IV ONE (21:58)
[2023-10-10 22:11] LABS: ALBUMIN 2.8 G/DL (3.2-5.2); BILIRUBIN,DIRECT 0.4 MG/DL (<0.4); BILIRUBIN,TOTAL 0.9 MG/DL (0.3-1.2); CALCIUM LEVEL 10.1 MG/DL (8.3-10.6); CREATININE FOR GFR 2.06 MG/DL (0.55-1.30); GLOMERULAR FILTRATION RATE 24.6 (>32); POTASSIUM SERUM 5.6 MMOL/L (3.5-5.1); TOTAL PROTEIN 6.9 G/DL (5.7-8.2)
[2023-10-10 22:45] LABS: INR 1.13; PARTIAL THROMBOPLASTIN TIME 23.9 SECONDS (24.8-34.2); PROTHROMBIN TIME 14.2 SECONDS (12.5-14.5)
[2023-10-10] MEDS: NS 500 ML IV ONE (23:40)
[2023-10-10] MEDS: APIXABAN 5 MG TAB (ELIQUIS) PO ONE (23:40)
[2023-10-10] MEDS ORDERED: FLUC200T4 PO (23:54)
[2023-10-10] MEDS ORDERED: HOME MED LIST COMPLETE! XX SCH (23:55)
[2023-10-11] VITALS (7 sets, daily range): BP systolic 96–119; BP diastolic 52–62; TEMP 97.4–98.4; O2SAT 90–96
[2023-10-11] MEDS ORDERED: LOPERAMIDE 2 MG CAPLET PO PRN (00:30)
[2023-10-11] MEDS ORDERED: GLUCOSE 4 GM CHEW PO PRN (00:30)
[2023-10-11] MEDS ORDERED: GLUCAGON INJ 1MG VIAL SC PRN (00:30)
[2023-10-11] MEDS ORDERED: DEXTROSE 50% 50ML SYRINGE IV PRN (00:30)
[2023-10-11] MEDS ORDERED: HYDROMORPHONE HCL 0.5 MG/ 0.5 ML SYRINGE IV PRN (00:30)
[2023-10-11] MEDS: NS 1,000 ML IV SCH (01:09)
[2023-10-11 01:23] LABS: APPEARANCE, URINE HAZY (CLEAR); BACTERIA, URINE AUTO NEGATIVE (NEGATIVE); BILIRUBIN, URINE AUTO NEGATIVE (NEGATIVE); BLOOD, URINE BLOOD 1+ (NEGATIVE); COLOR, URINE YELLOW (YELLOW); GLUCOSE, URINE (UA) AUTO NEGATIVE (NEGATIVE); KETONE, URINE AUTO NEGATIVE (NEGATIVE); LEUKOCYTE ESTERASE, URINE AUTO TRACE (NEGATIVE); MUCUS, URINE SMALL (NEGATIVE); NITRITE, URINE AUTO NEGATIVE (NEGATIVE); PROTEIN, URINE AUTO NEGATIVE (NEGATIVE); RBC, URINE AUTO 1 /HPF (0-3); SPECIFIC GRAVITY URINE AUTO 1.008 (1.002-1.035); SQUAMOUS EPITHELIAL CELL UR AU 1 /HPF (0-6); UROBILINOGEN, URINE AUTO 0.2 mg/dL (0.0-2.0); WBC, URINE AUTO 19 /HPF (0-3)
[2023-10-11 06:07] LABS: CREATININE FOR GFR 1.69 MG/DL (0.55-1.30); GLOMERULAR FILTRATION RATE 30.9 (>32)
[2023-10-11 07:18] LABS: BASO # 0.1 10^3/uL (0.0-0.2); BASO % 0.6 % (0.0-1.0); EOS # 0.3 10^3/uL (0.0-0.5); HEMATOCRIT 31.6 % (36.0-47.0); HEMOGLOBIN 10.1 g/dl (12.0-15.5); LYMPH # 2.6 10^3/uL (1.5-5.0); LYMPH % 20.6 % (24.0-44.0); MEAN CORPUSCULAR HEMOGLOBIN 32.3 pg (27.0-33.0); MONO # 1.3 10^3/uL (0.0-0.8); MONO % 10.5 % (2.0-8.0); NEUTROPHILS # 8.3 10^3/uL (1.5-8.5); NEUTROPHILS % 65.8 % (36.0-66.0); PLATELET COUNT, AUTOMATED 217 10^3/uL (150-450); RED BLOOD COUNT 3.13 10^6/uL (4.00-5.40); WHITE BLOOD COUNT 12.6 10^3/uL (4.0-10.0)
[2023-10-11] MEDS: INSULIN LISPRO (NovoLOG) PER UNIT SC SCH (07:30)
[2023-10-11] MEDS: SERTRALINE HCL 25 MG TABLET PO SCH (08:49)
[2023-10-11] MEDS: APIXABAN 5 MG TAB (ELIQUIS) PO SCH (08:50)
[2023-10-11] MEDS: ROSUVASTATIN 10 MG TAB (CRESTOR) PO SCH (08:51)
[2023-10-11] MEDS ORDERED: PILL CUTTER 1 EACH XX PRN (08:55)
[2023-10-11] MEDS: NYSTATIN 500,000U/5ML SUSP UDC SS SCH (16:39)
[2023-10-11] MEDS: LATANOPROST 0.005% OPHTH SOLN 2.5 ML OU SCH (21:00)
[2023-10-11] MEDS: PANTOPRAZOLE 40MG TAB (PROTONIX) PO SCH (21:52)
[2023-10-12] VITALS (7 sets, daily range): BP systolic 99–136; BP diastolic 51–65; TEMP 97–97.5; O2SAT 93–96
[2023-10-12 05:33] LABS: BASO # 0.1 10^3/uL (0.0-0.2); BASO % 0.7 % (0.0-1.0); EOS # 0.5 10^3/uL (0.0-0.5); EOS % 4.5 % (0.0-3.0); HEMATOCRIT 30.5 % (36.0-47.0); HEMOGLOBIN 9.7 g/dl (12.0-15.5); LYMPH # 2.5 10^3/uL (1.5-5.0); MEAN CORPUSCULAR HEMOGLOBIN 31.7 pg (27.0-33.0); MEAN CORPUSCULAR HGB CONC 31.8 g/dl (32.0-36.5); MEAN CORPUSCULAR VOLUME 99.7 fl (80.0-96.0); MONO # 1.1 10^3/uL (0.0-0.8); MONO % 10.4 % (2.0-8.0); NEUTROPHILS # 6.7 10^3/uL (1.5-8.5); PLATELET COUNT, AUTOMATED 226 10^3/uL (150-450); RED BLOOD COUNT 3.06 10^6/uL (4.00-5.40); WHITE BLOOD COUNT 10.9 10^3/uL (4.0-10.0)
[2023-10-12 05:57] LABS: CALCIUM LEVEL 8.2 MG/DL (8.3-10.6); CREATININE FOR GFR 1.22 MG/DL (0.55-1.30); MAGNESIUM LEVEL 1.6 MG/DL (1.8-2.4); POTASSIUM SERUM 4.8 MMOL/L (3.5-5.1)
[2023-10-12] MEDS: ONDANSETRON 4MG 2ML VIAL IV PRN (08:17)
[2023-10-12] MEDS: MAG SULF 1GM/100ML (MAG RUN) 1 GM in IV 1 EA IV SCH (08:19)
[2023-10-12] MEDS: ACETAMINOPHEN TAB 650MG DOSE (2X325MG) PO PRN (22:23)
[2023-10-13] VITALS (7 sets, daily range): BP systolic 102–141; BP diastolic 60–80; TEMP 96.9–98.8; O2SAT 94–98
[2023-10-13 06:02] LABS: CALCIUM LEVEL 8.6 MG/DL (8.3-10.6); CREATININE FOR GFR 1.31 MG/DL (0.55-1.30); GLOMERULAR FILTRATION RATE 41.5 (>32); POTASSIUM SERUM 4.6 MMOL/L (3.5-5.1)
[2023-10-13] MEDS: NS 1,000 ML IV SCH (08:31)
[2023-10-13] MEDS: LOMOTIL 2.5MG/0.025MG TABLET PO ONE (12:22)
[2023-10-13] MEDS: METAMUCIL (PSYLLIUM) PACKET PO SCH (12:22)
[2023-10-14] VITALS (8 sets, daily range): BP systolic 116–141; BP diastolic 56–80; TEMP 96.9–97.6; O2SAT 8–98
[2023-10-14 06:11] LABS: BASO # 0.1 10^3/uL (0.0-0.2); BASO % 0.9 % (0.0-1.0); EOS # 0.6 10^3/uL (0.0-0.5); EOS % 6.5 % (0.0-3.0); HEMATOCRIT 28.9 % (36.0-47.0); HEMOGLOBIN 9.3 g/dl (12.0-15.5); LYMPH # 2.5 10^3/uL (1.5-5.0); LYMPH % 27.8 % (24.0-44.0); MEAN CORPUSCULAR HEMOGLOBIN 32.1 pg (27.0-33.0); MEAN CORPUSCULAR HGB CONC 32.2 g/dl (32.0-36.5); MEAN CORPUSCULAR VOLUME 99.7 fl (80.0-96.0); MONO # 0.9 10^3/uL (0.0-0.8); NEUTROPHILS % 54.5 % (36.0-66.0); PLATELET COUNT, AUTOMATED 271 10^3/uL (150-450); WHITE BLOOD COUNT 9.1 10^3/uL (4.0-10.0)
[2023-10-14 06:38] LABS: CALCIUM LEVEL 8.7 MG/DL (8.3-10.6); CREATININE FOR GFR 1.12 MG/DL (0.55-1.30); GLOMERULAR FILTRATION RATE 49.7 (>32); MAGNESIUM LEVEL 1.6 MG/DL (1.8-2.4); POTASSIUM SERUM 4.3 MMOL/L (3.5-5.1)
[2023-10-14] MEDS: MAG SULF 1GM/100ML (MAG RUN) 1 GM in IV 1 EA IV SCH (08:15)
[2023-10-14] MEDS ORDERED: MAG SULF 1GM/100ML (MAG RUN) 1 GM in IV 1 EA IV SCH (13:00)
[2023-10-15] VITALS (8 sets, daily range): BP systolic 118–131; BP diastolic 57–65; TEMP 96.9–97.9; O2SAT 93–100
[2023-10-15 06:47] LABS: CALCIUM LEVEL 8.8 MG/DL (8.3-10.6); CREATININE FOR GFR 1.11 MG/DL (0.55-1.30); GLOMERULAR FILTRATION RATE 50.2 (>32); MAGNESIUM LEVEL 2.1 MG/DL (1.8-2.4); POTASSIUM SERUM 4.5 MMOL/L (3.5-5.1)
[2023-10-15] MEDS ORDERED: traMADol 50 MG TAB PO PRN (17:00)
[2023-10-15] MEDS: LOPERAMIDE 2 MG CAPLET PO SCH (17:30)
[2023-10-16 07:35] LABS: CALCIUM LEVEL 8.9 MG/DL (8.3-10.6); CREATININE FOR GFR 1.08 MG/DL (0.55-1.30); GLOMERULAR FILTRATION RATE 51.8 (>32); MAGNESIUM LEVEL 1.7 MG/DL (1.8-2.4); POTASSIUM SERUM 4.2 MMOL/L (3.5-5.1)
[2023-10-16 08:00] VITALS: BP 130/64; TEMP 97.5; O2SAT 93
[2023-10-16] MEDS: METAMUCIL (PSYLLIUM) PACKET PO SCH (10:06)
[2023-10-16] MEDS: MAG SULF 1GM/100ML (MAG RUN) 1 GM in IV 1 EA IV ONE (10:07)
[2023-10-16] MEDS ORDERED: LOPE2CA PO (13:20)
[2023-10-16] MEDS ORDERED: ELIQ5TAB PO (13:20)
[2023-10-16] MEDS ORDERED: ONDA4TAB6 SL (13:20)
[2023-10-16] MEDS ORDERED: META1POW PO (13:20)
[2023-10-17 10:50] LABS: DRVV SCREEN 43.6 SECONDS
[2023-10-17 11:16] LABS: PTT LUPUS TYPE ANTICOAG SCREEN 1.06 (0-1.20)
[2023-10-18] MEDS ORDERED: APIXABAN 5 MG TAB (ELIQUIS) PO SCH (09:00)
== END 2023-10-16 15:50 | disposition home health service (06) | DRG 683 ==
LOC: M ED 20:28 → M ED INP 23:10 → M PCU 10-11 01:26
PROVIDERS: ADMIT Internal Medicine; ATTEND Internal Medicine
DX: N17.9 Acute kidney failure, unspecified (principal); I82.411 Acute embolism and thrombosis of right femoral vein; I82.441 Acute embolism and thrombosis of right tibial vein; Z93.2 Ileostomy status; I10 Essential (primary) hypertension; E78.5 Hyperlipidemia, unspecified; E87.5 Hyperkalemia; E83.42 Hypomagnesemia; R53.1 Weakness; K21.9 Gastro-esophageal reflux disease without esophagitis; R42 Dizziness and giddiness; I95.9 Hypotension, unspecified; R19.8 Other specified symptoms and signs involving the digestive system and abdomen; E11.9 Type 2 diabetes mellitus without complications; E86.0 Dehydration; M19.90 Unspecified osteoarthritis, unspecified site; G43.909 Migraine, unspecified, not intractable, without status migrainosus; K57.90 Diverticulosis of intestine, part unspecified, without perforation or abscess without bleeding; Z88.2 Allergy status to sulfonamides; Z79.899 Other long term (current) drug therapy

== ENCOUNTER → 2023-12-03 | Outpatient (CLI) | payer MEDICARE ==
[~2023-12-03] MED LIST changes: -AZEL0.055; +AZEL1SPR4; +BYST1TAB2 PO; -BYST5TAB2 PO; +FLUC200T4 PO; +LIQUID POLIBAR PLUS 105% w/v 750ML BTL As Ordered ONE; +LOPE2CA PO; +META1POW PO; +ONDA-282 SL
== END ==
LOC: M RAD 09:32
PROVIDERS: ATTEND Surgery
DX: K56.690 Other partial intestinal obstruction (principal)

== ENCOUNTER → 2024-01-30 | Outpatient (CLI) | payer MEDICARE ==
[~2024-01-30] MED LIST changes: +AZEL1SPR3 NARES; +CEFD1CAP9 PO; +DIPH1TAB80 PO; -LIQUID POLIBAR PLUS 105% w/v 750ML BTL As Ordered ONE; +LOPE1CAP5 PO; +OMEP1CAP73 PO; +OMEP40CA4 PO
[2024-01-30 15:29] LABS: BASO # 0.1 10^3/uL (0.0-0.2); BASO % 1.3 % (0.0-1.0); EOS # 0.1 10^3/uL (0.0-0.5); EOS % 1.6 % (0.0-3.0); HEMATOCRIT 39.6 % (36.0-47.0); HEMOGLOBIN 13.1 g/dl (12.0-15.5); LYMPH # 2.6 10^3/uL (1.5-5.0); LYMPH % 42.4 % (24.0-44.0); MEAN CORPUSCULAR HEMOGLOBIN 32.5 pg (27.0-33.0); MEAN CORPUSCULAR HGB CONC 33.1 g/dl (32.0-36.5); MEAN CORPUSCULAR VOLUME 98.3 fl (80.0-96.0); MONO # 0.5 10^3/uL (0.0-0.8); MONO % 8.4 % (2.0-8.0); NEUTROPHILS # 2.8 10^3/uL (1.5-8.5); NEUTROPHILS % 46.1 % (36.0-66.0); PLATELET COUNT, AUTOMATED 222 10^3/uL (150-450); RED BLOOD COUNT 4.03 10^6/uL (4.00-5.40); WHITE BLOOD COUNT 6.1 10^3/uL (4.0-10.0)
[2024-01-30 15:49] LABS: INR 1.06; PARTIAL THROMBOPLASTIN TIME 24.2 SECONDS (24.8-34.2); PROTHROMBIN TIME 13.5 SECONDS (12.5-14.5)
[2024-01-30 16:02] LABS: ALBUMIN 3.7 G/DL (3.2-5.2); CALCIUM LEVEL 9.5 MG/DL (8.3-10.6); CREATININE FOR GFR 1.45 MG/DL (0.55-1.30); GLOMERULAR FILTRATION RATE 36.9 (>32); POTASSIUM SERUM 4.1 MMOL/L (3.5-5.1); TOTAL PROTEIN 6.9 G/DL (5.7-8.2)
== END ==
LOC: M LAB 14:39
PROVIDERS: ATTEND Nurse Practitioner Adult Health
DX: Z01.812 Encounter for preprocedural laboratory examination (principal); E83.110 Hereditary hemochromatosis

== ENCOUNTER 2024-02-03 06:52 | Inpatient (IN) | payer MEDICARE ==
[~2024-02-03] VITALS: Ht 157.5 cm; Wt 70.1 kg
[2024-02-03] VITALS (11 sets, daily range): BP systolic 89–137; BP diastolic 46–73; TEMP 97.2–97.8; O2SAT 88–99
[~2024-02-03 06:52] MED LIST changes: +ACETAMINOPHEN 1000MG 100ML IV BAG As Ordered ONE; -AZEL1SPR3 NARES; -CEFD1CAP9 PO; +LIDOCAINE 2% 100MG/5ML SDV (FOR ANES.) As Ordered ONE; -LOPE1CAP5 PO; -NEBI10TA PO; +NEBI10TA2 PO; -OMEP1CAP73 PO; -OMEP40CA4 PO; +ROCURONIUM BROMIDE 50MG/5ML VIAL As Ordered ONE; +fentaNYL 100 MCG/2 ML INJECTION As Ordered ONE; +propofoL 200 MG/20 ML VIAL As Ordered ONE
[2024-02-03] MEDS ORDERED: LR 1,000 ML IV SCH (07:00)
[2024-02-03] MEDS ORDERED: OMEP40CA4 PO (07:38)
[2024-02-03] MEDS ORDERED: AZEL1SPR3 NARES (07:38)
[2024-02-03] MEDS ORDERED: CEFD1CAP9 PO (07:38)
[2024-02-03] MEDS: SCOPOLAMINE 1MG TRANSDERMAL PATCH As Ordered ONE (07:50)
[2024-02-03] MEDS: ceFAZolin SOD 2 GM in IV 1 EA IV ONE (07:50)
[2024-02-03] MEDS: metroNIDAZOLE 500 MG in IV 1 EA IV ONE (08:00)
[2024-02-03] MEDS ORDERED: OMEP1CAP73 PO (08:07)
[2024-02-03] MEDS ORDERED: LOPE1CAP5 PO (08:07)
[2024-02-03] MEDS ORDERED: HOME MED LIST COMPLETE! XX SCH (08:10)
[2024-02-03] MEDS ORDERED: ONDANSETRON 4MG 2ML VIAL As Ordered ONE (08:16)
[2024-02-03] MEDS ORDERED: SUGAMMADEX SODIUM 500 MG/5 ML VIAL (BRIDION) As Ordered ONE (08:16)
[2024-02-03] MEDS ORDERED: ePHEDrine SULFATE 25 MG/5 ML(5MG/ML) SYRINGE As Ordered ONE (08:28)
[2024-02-03] MEDS ORDERED: ONDANSETRON 4MG 2ML VIAL IV PRN ×2 (09:00→09:05)
[2024-02-03] MEDS ORDERED: oxyCODONE 5MG TAB PO PRN (09:00)
[2024-02-03] MEDS ORDERED: METOCLOPRAMIDE INJ 10MG/2ML VIAL IV PRN (09:05)
[2024-02-03] MEDS ORDERED: IPRATROPIUM 0.5MG/ALBUTEROL 2.5MG INH SOL UD 3ML (DUONEB) NEB PRN (09:05)
[2024-02-03] MEDS ORDERED: MORPHINE 2 MG/ML 1ML VIAL IV PRN (09:05)
[2024-02-03] MEDS: fentaNYL 100 MCG/2 ML INJECTION IV PRN (09:21)
[2024-02-03] MEDS: NS 1,000 ML IV SCH (11:20)
[2024-02-03] MEDS: IPRATROPIUM 0.5MG/ALBUTEROL 2.5MG INH SOL UD 3ML (DUONEB) NEB SCH (15:56)
[2024-02-03] MEDS: KETOROLAC 30 MG/ML 1ML VIAL IV PRN (20:56)
[2024-02-03] MEDS: ALVIMOPAN 12 MG CAPSULE (ENTEREG) PO SCH (20:56)
[2024-02-04 01:30] VITALS: BP 100/52
[2024-02-04 04:13] VITALS: BP 99/51; TEMP 97; O2SAT 97
[2024-02-04 07:15] LABS: HEMATOCRIT 32.5 % (36.0-47.0); HEMOGLOBIN 10.3 g/dl (12.0-15.5); MEAN CORPUSCULAR HEMOGLOBIN 32.5 pg (27.0-33.0); MEAN CORPUSCULAR HGB CONC 31.7 g/dl (32.0-36.5); MEAN CORPUSCULAR VOLUME 102.5 fl (80.0-96.0); PLATELET COUNT, AUTOMATED 175 10^3/uL (150-450); RED BLOOD COUNT 3.17 10^6/uL (4.00-5.40); WHITE BLOOD COUNT 10.4 10^3/uL (4.0-10.0)
[2024-02-04 07:38] LABS: CALCIUM LEVEL 8.2 MG/DL (8.3-10.6); CREATININE FOR GFR 1.43 MG/DL (0.55-1.30); GLOMERULAR FILTRATION RATE 37.5 (>32); POTASSIUM SERUM 4.6 MMOL/L (3.5-5.1)
[2024-02-04 08:00] VITALS: BP 110/58; TEMP 97.5; O2SAT 98
[2024-02-04] MEDS: PANTOPRAZOLE 40MG VIAL IV SCH (08:52)
[2024-02-04] MEDS: LACTOBACILLUS ACIDOPHILUS CAP (BACID) PO SCH (08:52)
[2024-02-04 12:00] VITALS: BP 100/58; TEMP 97.5; O2SAT 96
[2024-02-04 16:00] VITALS: BP 112/57; TEMP 97.2; O2SAT 95
[2024-02-04 20:23] VITALS: BP 123/74; TEMP 97.3; O2SAT 95
[2024-02-04] MEDS: MORPHINE 2 MG/ML 1ML VIAL IV PRN (20:26)
[2024-02-05 00:20] VITALS: BP 123/49; TEMP 96.6; O2SAT 95
[2024-02-05 04:00] VITALS: BP 115/68; TEMP 97.5; O2SAT 96
[2024-02-05 06:13] LABS: HEMATOCRIT 30.7 % (36.0-47.0); HEMOGLOBIN 9.8 g/dl (12.0-15.5); MEAN CORPUSCULAR HEMOGLOBIN 32.8 pg (27.0-33.0); MEAN CORPUSCULAR HGB CONC 31.9 g/dl (32.0-36.5); MEAN CORPUSCULAR VOLUME 102.7 fl (80.0-96.0); PLATELET COUNT, AUTOMATED 149 10^3/uL (150-450); RED BLOOD COUNT 2.99 10^6/uL (4.00-5.40); WHITE BLOOD COUNT 8.1 10^3/uL (4.0-10.0)
[2024-02-05 06:30] LABS: CALCIUM LEVEL 8.1 MG/DL (8.3-10.6); CREATININE FOR GFR 1.36 MG/DL (0.55-1.30); GLOMERULAR FILTRATION RATE 39.7 (>32); POTASSIUM SERUM 4.1 MMOL/L (3.5-5.1)
[2024-02-05 08:00] VITALS: BP 120/66; TEMP 97.9; O2SAT 97
[2024-02-05 12:00] VITALS: BP 116/64; TEMP 97.9; O2SAT 95
[2024-02-05 16:00] VITALS: BP 120/59; TEMP 97.7; O2SAT 96
[2024-02-05 20:30] VITALS: BP 132/67; TEMP 98.1; O2SAT 95
[2024-02-06 01:25] VITALS: BP 132/67; TEMP 98.1; O2SAT 95
[2024-02-06 01:32] VITALS: BP 126/65; TEMP 97.9; O2SAT 94
[2024-02-06 06:00] VITALS: BP 133/67; TEMP 97.7; O2SAT 95
[2024-02-06 06:23] LABS: HEMOGLOBIN 9.9 g/dl (12.0-15.5); MEAN CORPUSCULAR HEMOGLOBIN 32.5 pg (27.0-33.0); MEAN CORPUSCULAR HGB CONC 31.9 g/dl (32.0-36.5); MEAN CORPUSCULAR VOLUME 101.6 fl (80.0-96.0); PLATELET COUNT, AUTOMATED 178 10^3/uL (150-450); RED BLOOD COUNT 3.05 10^6/uL (4.00-5.40)
[2024-02-06 06:55] LABS: CALCIUM LEVEL 8.4 MG/DL (8.3-10.6); CREATININE FOR GFR 1.47 MG/DL (0.55-1.30); GLOMERULAR FILTRATION RATE 36.3 (>32); POTASSIUM SERUM 4.1 MMOL/L (3.5-5.1)
[2024-02-06 12:00] VITALS: BP 151/78; TEMP 97.3; O2SAT 95
[2024-02-06 16:00] VITALS: BP 143/65; TEMP 97.5; O2SAT 97
[2024-02-06 22:07] VITALS: BP 138/61; TEMP 98.6; O2SAT 93
[2024-02-07] VITALS (7 sets, daily range): BP systolic 102–143; BP diastolic 60–81; TEMP 97.2–98.2; O2SAT 92–97
[2024-02-07 06:48] LABS: HEMATOCRIT 29.1 % (36.0-47.0); HEMOGLOBIN 9.3 g/dl (12.0-15.5); PLATELET COUNT, AUTOMATED 163 10^3/uL (150-450); RED BLOOD COUNT 2.91 10^6/uL (4.00-5.40); WHITE BLOOD COUNT 7.6 10^3/uL (4.0-10.0)
[2024-02-07 07:18] LABS: CALCIUM LEVEL 8.2 MG/DL (8.3-10.6); CREATININE FOR GFR 1.45 MG/DL (0.55-1.30); GLOMERULAR FILTRATION RATE 36.9 (>32); POTASSIUM SERUM 3.7 MMOL/L (3.5-5.1)
[2024-02-07] MEDS: MORPHINE 2 MG/ML 1ML VIAL IV PRN (15:17)
[2024-02-08 07:17] LABS: HEMATOCRIT 28.5 % (36.0-47.0); HEMOGLOBIN 9.4 g/dl (12.0-15.5); MEAN CORPUSCULAR HEMOGLOBIN 32.3 pg (27.0-33.0); MEAN CORPUSCULAR VOLUME 97.9 fl (80.0-96.0); PLATELET COUNT, AUTOMATED 170 10^3/uL (150-450); RED BLOOD COUNT 2.91 10^6/uL (4.00-5.40); WHITE BLOOD COUNT 7.2 10^3/uL (4.0-10.0)
[2024-02-08 07:39] LABS: CALCIUM LEVEL 8.3 MG/DL (8.3-10.6); CREATININE FOR GFR 1.24 MG/DL (0.55-1.30); GLOMERULAR FILTRATION RATE 44.2 (>32); POTASSIUM SERUM 3.1 MMOL/L (3.5-5.1)
[2024-02-08 08:14] VITALS: BP 144/72; TEMP 98.2; O2SAT 90
[2024-02-08 12:38] VITALS: BP 130/68; TEMP 97.9; O2SAT 95
[2024-02-08 15:51] VITALS: BP 134/73; TEMP 98.1; O2SAT 92
[2024-02-08 20:00] VITALS: BP 128/70; TEMP 97.8; O2SAT 94
[2024-02-09 06:11] LABS: HEMOGLOBIN 9.9 g/dl (12.0-15.5); MEAN CORPUSCULAR HEMOGLOBIN 32.4 pg (27.0-33.0); PLATELET COUNT, AUTOMATED 173 10^3/uL (150-450); RED BLOOD COUNT 3.06 10^6/uL (4.00-5.40); WHITE BLOOD COUNT 7.1 10^3/uL (4.0-10.0)
[2024-02-09 06:33] LABS: CALCIUM LEVEL 8.2 MG/DL (8.3-10.6); CREATININE FOR GFR 1.25 MG/DL (0.55-1.30); GLOMERULAR FILTRATION RATE 43.8 (>32); POTASSIUM SERUM 3.1 MMOL/L (3.5-5.1)
[2024-02-09 08:00] VITALS: BP 141/77; TEMP 98.1; O2SAT 92
[2024-02-09] MEDS: LOPERAMIDE 2 MG CAPLET PO ONE (10:18)
[2024-02-09 12:00] VITALS: BP 154/75; TEMP 98.1; O2SAT 96
== END 2024-02-09 12:45 | disposition home or self-care (01) | DRG 330 ==
LOC: M OR 06:52 → M MS5PR 10:20
PROVIDERS: ADMIT Surgery; ATTEND Surgery
PROC: 0WQF0ZZ Repair Abdominal Wall, Open Approach (ICD-10-PCS; 2024-02-03)
PROC: 0DQ80ZZ Repair Small Intestine, Open Approach (ICD-10-PCS; principal; 2024-02-03 07:30)
DX: Z43.2 Encounter for attention to ileostomy (principal); I48.92 Unspecified atrial flutter; Z79.899 Other long term (current) drug therapy; I34.0 Nonrheumatic mitral (valve) insufficiency; E78.2 Mixed hyperlipidemia; E66.9 Obesity, unspecified; I11.9 Hypertensive heart disease without heart failure; G43.909 Migraine, unspecified, not intractable, without status migrainosus; M19.90 Unspecified osteoarthritis, unspecified site; F41.9 Anxiety disorder, unspecified; Z98.49 Cataract extraction status, unspecified eye; Z87.891 Personal history of nicotine dependence

== ENCOUNTER → 2024-02-11 | Outpatient (CLI) | payer MEDICARE ==
[~2024-02-11] MED LIST changes: -ACETAMINOPHEN 1000MG 100ML IV BAG As Ordered ONE; +AZEL1SPR3 NARES; +CEFD1CAP9 PO; -LIDOCAINE 2% 100MG/5ML SDV (FOR ANES.) As Ordered ONE; +LOPE1CAP5 PO; +NEBI10TA PO; -NEBI10TA2 PO; +OMEP1CAP73 PO; +OMEP40CA4 PO; -ROCURONIUM BROMIDE 50MG/5ML VIAL As Ordered ONE; -fentaNYL 100 MCG/2 ML INJECTION As Ordered ONE; -propofoL 200 MG/20 ML VIAL As Ordered ONE
== END ==
LOC: M WUC 12:35
PROVIDERS: ATTEND Student in an Organized Health Care Education/Training Program
DX: R06.02 Shortness of breath (principal)

== ENCOUNTER → 2024-04-09 | Outpatient (REF) | payer MEDICARE ==
[~2024-04-09] MED LIST changes: -NEBI10TA PO; +NEBI10TA2 PO
== END ==
LOC: M LAB REF 16:14
PROVIDERS: ATTEND Physician Assistant
DX: R30.0 Dysuria (principal)

== ENCOUNTER → 2024-07-12 | Outpatient (CLI) | payer MEDICARE ==
[~2024-07-12] MED LIST changes: +FLUC-1 PO; -FLUC200T4 PO; -ROSU5TAB40 PO; +ROSU5TAB49 PO
[2024-07-12 14:55] LABS: BASO # 0.1 10^3/uL (0.0-0.2); BASO % 1.2 % (0.0-1.0); EOS # 0.2 10^3/uL (0.0-0.5); HEMATOCRIT 39.9 % (36.0-47.0); HEMOGLOBIN 12.5 g/dl (12.0-15.5); LYMPH # 4.1 10^3/uL (1.5-5.0); LYMPH % 47.4 % (24.0-44.0); MEAN CORPUSCULAR HEMOGLOBIN 30.3 pg (27.0-33.0); MEAN CORPUSCULAR HGB CONC 31.3 g/dl (32.0-36.5); MEAN CORPUSCULAR VOLUME 96.8 fl (80.0-96.0); MONO # 0.6 10^3/uL (0.0-0.8); MONO % 6.8 % (2.0-8.0); NEUTROPHILS # 3.7 10^3/uL (1.5-8.5); NEUTROPHILS % 42.4 % (36.0-66.0); PLATELET COUNT, AUTOMATED 296 10^3/uL (150-450); RED BLOOD COUNT 4.12 10^6/uL (4.00-5.40); WHITE BLOOD COUNT 8.7 10^3/uL (4.0-10.0)
[2024-07-12 15:27] LABS: THYROID STIMULATING HORMONE 2.237 uIU/ML (0.55-4.78)
[2024-07-12 15:28] LABS: FERRITIN 18.8 NG/ML (7.3-270.7); PERCENT SATURATION 41.6 % (13.2-45.0); TOTAL 25(OH) VITAMIN D 58.2 NG/ML (20.0-100.0)
[2024-07-12 15:29] LABS: ALBUMIN 3.6 G/DL (3.2-5.2); CALCIUM LEVEL 9.4 MG/DL (8.3-10.6); CHOLESTEROL RISK RATIO 2.56 (<5); CREATININE FOR GFR 1.52 MG/DL (0.55-1.30); GLOMERULAR FILTRATION RATE 34.9 (>32); HDL CHOLESTEROL 77.9 MG/DL (>40); LDL CHOLESTEROL 92.1 MG/DL (<100); NON-HDL-C 122.1 MG/DL; POTASSIUM SERUM 4.4 MMOL/L (3.5-5.1)
[2024-07-12 15:31] LABS: FREE T4 1.23 NG/DL (0.89-1.76)
[2024-07-12 15:58] LABS: HEMOGLOBIN A1c 5.5 % (4.0-6.0)
== END ==
LOC: M WUC 11:14
PROVIDERS: ATTEND Nurse Practitioner Adult Health
DX: E78.5 Hyperlipidemia, unspecified (principal); R53.83 Other fatigue; I10 Essential (primary) hypertension; E83.110 Hereditary hemochromatosis; Z79.899 Other long term (current) drug therapy

== ENCOUNTER 2024-12-30 16:12 | Emergency (ER) | payer MEDICARE ==
[~2024-12-30] VITALS: Ht 157.5 cm; Wt 72.7 kg
[~2024-12-30 16:12] MED LIST changes: -EQL50TAB2 PO; +VITA1TAB82 PO
[2024-12-30 16:19] VITALS: TEMP 97.7
[2024-12-30 17:32] LABS: BASO # 0.1 10^3/uL (0.0-0.2); BASO % 1.1 % (0.0-1.0); EOS # 0.1 10^3/uL (0.0-0.5); EOS % 0.8 % (0.0-3.0); LYMPH # 2.2 10^3/uL (1.5-5.0); LYMPH % 22.9 % (24.0-44.0); MONO # 0.8 10^3/uL (0.0-0.8); MONO % 7.8 % (2.0-8.0); NEUTROPHILS # 6.4 10^3/uL (1.5-8.5); NEUTROPHILS % 67.1 % (36.0-66.0); PLATELET COUNT, AUTOMATED 269 10^3/uL (150-450)
[2024-12-30 17:53] LABS: CALCIUM LEVEL 9.2 MG/DL (8.3-10.6); CARBON DIOXIDE LEVEL 27.0 MMOL/L (20-31); CHLORIDE LEVEL 104.0 MMOL/L (98-107); CREATININE FOR GFR 1.44 MG/DL (0.55-1.30); GLOMERULAR FILTRATION RATE 36.3 (>32); POTASSIUM SERUM 4.4 MMOL/L (3.5-5.1); SODIUM LEVEL 143.0 MMOL/L (136-145)
[2024-12-30 19:45] LABS: MAGNESIUM LEVEL 2.0 MG/DL (1.8-2.4)
[2024-12-30 19:48] LABS: FREE T4 1.24 NG/DL (0.89-1.76)
[2024-12-30 20:55] LABS: KETONE, URINE AUTO RFX NEGATIVE (NEGATIVE); LEUKOCYTE ESTERASE UR AUTO RFX NEGATIVE (NEGATIVE); NITRITE, URINE AUTO RFX NEGATIVE (NEGATIVE); RBC, URINE AUTO RFX 1 /HPF (0-3); SQUAM EPITHELIAL CELL UR AURFX 0 /HPF (0-6); WBC, URINE AUTO RFX 1 /HPF (0-3)
[2024-12-30 21:42] VITALS: O2SAT 96
[2024-12-30 21:45] VITALS: BP 142/70
== END 2024-12-30 22:19 | disposition home or self-care (01) ==
LOC: M ED 16:12
DX: H81.4 Vertigo of central origin (principal); I10 Essential (primary) hypertension; E78.5 Hyperlipidemia, unspecified; K21.9 Gastro-esophageal reflux disease without esophagitis; Z79.01 Long term (current) use of anticoagulants; Z79.899 Other long term (current) drug therapy; Z88.2 Allergy status to sulfonamides; Z88.8 Allergy status to other drugs, medicaments and biological substances

== ENCOUNTER → 2025-01-28 | Outpatient (REF) | payer MEDICARE ==
[2025-01-28 15:16] LABS: BASO # 0.1 10^3/uL (0.0-0.2); BASO % 1.6 % (0.0-1.0); EOS # 0.2 10^3/uL (0.0-0.5); EOS % 2.6 % (0.0-3.0); LYMPH # 3.5 10^3/uL (1.5-5.0); LYMPH % 43.9 % (24.0-44.0); MONO # 0.6 10^3/uL (0.0-0.8); MONO % 7.8 % (2.0-8.0); NEUTROPHILS # 3.5 10^3/uL (1.5-8.5); NEUTROPHILS % 44.0 % (36.0-66.0); PLATELET COUNT, AUTOMATED 309 10^3/uL (150-450)
[2025-01-28 15:42] LABS: TOTAL 25(OH) VITAMIN D 61.3 NG/ML (20.0-100.0)
[2025-01-28 15:44] LABS: ALT/SGPT 16.0 U/L (7.0-40); AST/SGOT 20.0 U/L (<34); CALCIUM LEVEL 9.4 MG/DL (8.3-10.6); CARBON DIOXIDE LEVEL 24.0 MMOL/L (20-31); CHLORIDE LEVEL 106.0 MMOL/L (98-107); CHOLESTEROL LEVEL 251.0 MG/DL (<200); CHOLESTEROL RISK RATIO 2.99 (<5); CREATININE FOR GFR 1.61 MG/DL (0.55-1.30); FREE T4 1.22 NG/DL (0.89-1.76); GLOMERULAR FILTRATION RATE 31.8 (>32); LDL CHOLESTEROL 139.3 MG/DL (<100); NON-HDL-C 167.1 MG/DL; POTASSIUM SERUM 4.4 MMOL/L (3.5-5.1); SODIUM LEVEL 142.0 MMOL/L (136-145); TRIGLYCERIDES LEVEL 139.0 MG/DL (<150)
== END ==
LOC: M LAB REF 14:22 → M LABWUC 14:22
DX: E78.5 Hyperlipidemia, unspecified (principal); E83.110 Hereditary hemochromatosis; I10 Essential (primary) hypertension; R00.1 Bradycardia, unspecified; R53.83 Other fatigue; Z79.899 Other long term (current) drug therapy